=== PATIENT | female | born 1945 ===

== ENCOUNTER 2023-05-31 15:21 | Inpatient (IN) | payer MEDICARE, SELFPAY ==
--- NOTE | ~2023-05-31 | XR_ITS ---
EXAMINATION: XR ANKLE, RIGHT CLINICAL INFORMATION: Ankle swelling COMPARISON: None available. TECHNIQUE: AP, lateral, and mortise views of the right ankle. FINDINGS: There is bilateral soft tissue swelling seen. No effusions are present. The ankle mortise appears stable. No fractures. XR/XR ankle RT 2V IMPRESSION: Soft tissue swelling without fracture.
[2023-05-31 16:30] VITALS: BP 171/74; PULSE 72; TEMP 36.2; O2SAT 95
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
[2023-05-31 20:00] VITALS: BP 195/80; PULSE 73; RESP 18; TEMP 35.9; O2SAT 97
--- NOTE | 2023-06-01 08:26 | P.HPPS_ITS ---
HPI Date of Service: 06/01/23 Chief Complaint: Schizoaffective disorder Sources of Information: patient interviewed, chart reviewed and crisis/core team assessment reviewed HPI Subjective Notes: Section 12B Narrative: The patient is a 77-year-old female, residing at her home home, with with a long history of psychiatric illness, [facility] case managed through [facility] The patient has a community court order for treatment over objection and she has VNA services. According to the crisis assessment, the patient has refused to engage or allow the VNA in her home and dispense her medications. She presented herself with irritability agitation and aggression. The team called crisis as she was rushed to the emergency room where she refused to collaborate on the assessment. The patient was transferring to this facility for psychiatric stabilization. On interview, the patient reported that she is doing fine that she signed a 3 day notice, and she stated that she wound on court and she does not have to take medications. I explained her that we received a fax with her treatment over objection and she needs to take medication. She was disorganized, laughing inappropriately and tangential with severe thought process disorganization. Even though, she adamantly denies suicidal or homicidal ideation. The staff has noticed that she needs prompts for her activities of daily life. Risk, benefits, side-effects and alternatives were discussed with the patient but she stated that everything is okay. I explained her that we have the court order and she refused her Abilify we will need to give him Geonaresh IM. Past Psychiatric History: She has a long history of psychiatric illness she was diagnosed with psychosis and she has ancillary services by [facility]. She has VNA and other services that she had been refusing. She has several prior admissions into the hospital. Medical Evaluation Reviewed: Yes Diagnostics Vital Signs (24Hr): Vital Signs - 24 hr 05/31/23 16:30 05/31/23 20:00 Temperature 97.1 F 96.6 F L Pulse Rate 72 73 Respiratory Rate 18 Blood Pressure 171/74 H 195/80 H Pulse Oximetry 95 97 Oxygen Delivery Method Room Air Room Air Labs 06/01/23 08:07 Meds/Allergies Meds Home Medications Medication Instructions Recorded Confirmed Type aripiprazole 30 mg tablet 30 mg PO DAILY 05/31/23 05/31/23 History divalproex 500 mg tablet,extended 500 mg PO QPM 05/31/23 05/31/23 History release 24 hr propranolol 10 mg tablet 10 mg PO BID 05/31/23 05/31/23 History ziprasidone HCl 60 mg capsule 60 mg PO DAILY 05/31/23 05/31/23 History Allergies Allergies Allergy/AdvReac Type Severity Reaction Status Date / Time aspirin Allergy Hives Verified 05/31/23 16:21 Mental Status Exam Mental Status Exam Patient Appearance: Appropriate Patient Orientation: Person and Situation Level of Consciousness: Awake and Disoriented Patient Behavior: Guarded and Belligerent Mood Description: Withdrawn Affect Description: Constricted Patient Cognition Impaired: Yes Ability to Follow Directions: Good Speech Pattern: Clear, Difficulty Finding Words and Mumbled Hallucinations: None Delusions: Paranoid Ideation and Ideas of Reference Thought Process: Incoherent, Illogical and Distracted Thought Content: positive for Loose Associations, positive for Thought Blocking, positive for Incoherent and positive for Tangential Judgement: Poor Assessment & Plan Assessment & Plan (1) Schizoaffective disorder: Status: Acute Code(s): F25.9 - Schizoaffective disorder, unspecified Plan The patient is an elderly female, with a long history of psychosis, followed by [facility] through VNA and intensive case management, referred for noncompliance of treatment with exacerbation of psychotic symptoms elicited by disorganized behavior irritability and agitation. Plan 1. Gather collateral information. 2. As per court order we will continue Abilify 30 mg p.o. q.a.m. with backup she on IM if the patient refuses. 3. Continue medical workout. 4. Reassessment with results. Patient educated on: diagnosis and therapeutic strategies Informed Consent: further education needed Reason for continued inpatient stay Substantial Risk for: inability to function, rapid decompensation and med/psych decompensation Statement Statement: I have reviewed the history and physical and performed a pertinent examination on my patient. No changes have occurred unless specified. If the History and Physical was not performed prior to admission, the Hospitalist's service will be consulted for completing the admission physic al. Time Spent With Patient Time: Total time managing care of this patient today __45__ minutes.
[2023-06-01 08:28] LABS: Estimated Average Glucose 100 mg/dL; Hemoglobin A1c % 5.1 %
[2023-06-01 09:00] VITALS: RESP 16
--- NOTE | 2023-06-01 09:25 | HO.PSYADMNOT ---
HPI Chief Complaint: Schizoaffective disorder Diagnostics Vital Signs (24Hr): Vital Signs - 24 hr 05/31/23 16:30 05/31/23 20:00 Temperature 97.1 F 96.6 F L Pulse Rate 72 73 Respiratory Rate 18 Blood Pressure 171/74 H 195/80 H Pulse Oximetry 95 97 Oxygen Delivery Method Room Air Room Air Labs 06/01/23 08:07 Labs: Laboratory Results - last 48 hr 06/01/23 08:07 Estimat Average Glucose 100 Hemoglobin A1c % 5.1 Meds/Allergies Meds Home Medications Medication Instructions Recorded Confirmed Type aripiprazole 30 mg tablet 30 mg PO DAILY 05/31/23 05/31/23 History divalproex 500 mg tablet,extended 500 mg PO QPM 05/31/23 05/31/23 History release 24 hr propranolol 10 mg tablet 10 mg PO BID 05/31/23 05/31/23 History ziprasidone HCl 60 mg capsule 60 mg PO DAILY 05/31/23 05/31/23 History Allergies Allergies Allergy/AdvReac Type Severity Reaction Status Date / Time aspirin Allergy Hives Verified 05/31/23 16:21 Assessment & Plan Statement Statement: I have reviewed the history and physical and performed a pertinent examination on my patient. No changes have occurred unless specified. If the History and Physical was not performed prior to admission, the Hospitalist's service will be consulted for completing the admission physical. Time Spent With Patient Time: Total time managing care of this patient today ____ minutes.
[2023-06-01 09:31] LABS: Alanine Aminotransferase 20 U/L (0-31); Albumin Level 3.1 g/dL (3.5-5.0); Alkaline Phosphatase 72 U/L (39-117); Anion Gap 10 (12-20); Aspartate Amino Transferase 20 U/L (5-31); Bilirubin Total 1.4 mg/dL (0.0-1.0); Blood Urea Nitrogen 6 mg/dL (9-16); Calcium 8.6 mg/dL (8.4-10.2); Carbon Dioxide 24 mmol/L (22-29); Chloride 111 mmol/L (96-108); Cholesterol 124 mg/dL; Estimated Glomerular Filt Rate > 60; Glucose Fasting 103 mg/dL (60-99); HDL Cholesterol 37 mg/dL; LDL Cholesterol Calculated 67 mg/dl; Potassium 3.7 mmol/L (3.3-5.1); Sodium 141 mmol/L (135-145); Total Protein 5.5 g/dL (6.5-8.0); Triglycerides 101 mg/dL
[2023-06-01] MEDS: ARIPiprazole 30 MG TABLET PO (09:34)
[2023-06-01 09:46] LABS: Thyroid Stimulating Hormone 1.22 uIU/mL (0.32-4.0)
[2023-06-01 09:54] LABS: Vitamin B12 295 pg/mL (200-900)
[2023-06-01 17:08] VITALS: BP 188/86; PULSE 76; O2SAT 98
[2023-06-01 18:00] VITALS: BP 175/76; PULSE 106; TEMP 36.3; O2SAT 97
[2023-06-02] MEDS: ARIPiprazole 30 MG TABLET PO (13:07)
--- NOTE | 2023-06-02 15:56 | HO.PSYCHPN ---
Subjective Subjective Date of Service: 06/02/23 Reason For Visit: Schizoaffective disorder Interim History: reports she is sleeping, eating, getting along OK. militantly committed to the ideal that today is June 05. any statements to the contrary elicit a subtle rage. per staff, refusing BP meds. hypertensive. slept well, eating well. Mental Status Exam Mental Status Exam Patient Appearance: Appropriate Patient Orientation: Person and Situation Level of Consciousness: Awake and Disoriented Patient Behavior: Guarded and Belligerent Mood Description: Withdrawn Affect Description: Constricted Patient Cognition Impaired: Yes Ability to Follow Directions: Good Speech Pattern: Clear, Difficulty Finding Words and Mumbled Hallucinations: None Delusions: Paranoid Ideation and Ideas of Reference Thought Process: Incoherent, Illogical and Distracted Thought Content: positive for Loose Associations, positive for Thought Blocking, positive for Incoherent and positive for Tangential Judgement: Poor Diagnostics Vital Signs (24Hr): Vital Signs - 24 hr 06/01/23 17:08 06/01/23 18:00 Temperature 97.3 F Pulse Rate 76 106 H Blood Pressure 188/86 H 175/76 H Pulse Oximetry 98 97 Oxygen Delivery Method Room Air Room Air Labs 06/01/23 08:07 Labs: Laboratory Results - last 48 hr 06/01/23 06/01/23 06/01/23 08:07 08:07 08:07 Sodium 141 Potassium 3.7 Chloride 111 H Carbon Dioxide 24 Anion Gap 10 L BUN 6 L Creatinine 0.67 Estim Creat Clear Calc TNP Estimated GFR > 60 Fasting Glucose 103 H Estimat Average Glucose 100 Hemoglobin A1c % 5.1 Calcium 8.6 Total Bilirubin 1.4 H AST 20 ALT 20 Alkaline Phosphatase 72 Total Protein 5.5 L Albumin 3.1 L Triglycerides 101 Cholesterol 124 LDL Cholesterol, Calc 67 HDL Cholesterol 37 Vitamin B12 295 TSH 1.22 Medications Medications Current Medications Acetaminophen (Acetaminophen 325 Mg Tablet) 650 mg PO Q6H PRN PRN Reason: Headache/Pain Mild Scale (1-3) Al Hydroxide/Mg Hydroxide (Magnesium Hydrox/Alum Hydrox 30 Ml Oral.Susp) 30 ml PO Q6H PRN PRN Reason: Heartburn/Nausea Amlodipine Besylate (Amlodipine Besylate 2.5 Mg Tablet) 2.5 mg PO DAILY [facility]QU[facility]; Protocol Last Admin: 06/02/23 10:03 Dose: Not Given Aripiprazole (Aripiprazole 30 Mg Tablet) 30 mg PO DAILY [facility] Last Admin: 06/02/23 13:07 Dose: 30 mg Divalproex Sodium (Divalproex Sodium Er 500 Mg Tab.Er.24h) 500 mg PO BEDTIME [facility] Last Admin: 06/01/23 21:11 Dose: Not Given Hydroxyzine HCl (Hydroxyzine Hcl 25 Mg Tablet) 25 mg PO Q6H PRN PRN Reason: Anxiety Magnesium Hydroxide (Milk Of Magnesia 30 Ml Oral.Susp) 30 ml PO DAILY PRN PRN Reason: Constipation Propranolol HCl (Propranolol Hcl 10 Mg Tablet) 10 mg PO BID [facility]; Protocol Last Admin: 06/02/23 10:03 Dose: Not Given Trazodone HCl (Trazodone Hcl 50 Mg Tablet) 50 mg PO BEDTIME PRN PRN Reason: Insomnia Ziprasidone (Ziprasidone Mesylate 20 Mg Vial) 20 mg IM DAILY PRN PRN Reason: if pt refuses po abilify Osman Allergies Allergies Allergy/AdvReac Type Severity Reaction Status Date / Time aspirin Allergy Hives Verified 05/31/23 16:21 Assessment & Plan Assessment & Plan (1) Schizoaffective disorder: Status: Acute Code(s): F25.9 - Schizoaffective disorder, unspecified Plan The patient is an elderly female, with a long history of psychosis, followed by [facility] through VNA and intensive case management, referred for noncompliance of treatment with exacerbation of psychotic symptoms elicited by disorganized behavior irritability and agitation. Plan 1. Gather collateral information. 2. As per court order we will continue Abilify 30 mg p.o. q.a.m. with backup she on IM if the patient refuses. 3. Continue medical workout. 4. Reassessment with results. 06/02: delusional, irritable. continue current mgmt. Reason for continued inpatient stay Substantial Risk for: inability to function and rapid decompensation Time Spent With Patient Time: Total time managing care of this patient today ____ minutes.
[2023-06-02 20:40] VITALS: BP 164/72; PULSE 87; RESP 17; TEMP 36.5; O2SAT 97
[2023-06-03] MEDS: ARIPiprazole 30 MG TABLET PO (08:25)
--- NOTE | 2023-06-03 10:51 | P.PNPSI_ITS ---
Subjective Subjective Date of Service: 06/03/23 Reason For Visit: Schizoaffective disorder Interim History: hostile, waves MD away, you can't help me. per staff, took abilify. refused VS and anti-HTN meds. systolic in the 170s last evening. slept well. Mental Status Exam Mental Status Exam Patient Appearance: Appropriate Patient Orientation: Person and Situation Level of Consciousness: Awake and Disoriented Patient Behavior: Guarded and Belligerent Mood Description: Withdrawn Affect Description: Constricted Patient Cognition Impaired: Yes Ability to Follow Directions: Good Speech Pattern: Clear Hallucinations: None Thought Process: Illogical and Distracted Thought Content: positive for Loose Associations, positive for Thought Blocking, positive for Incoherent and positive for Tangential Judgement: Poor Diagnostics Vital Signs (24Hr): Vital Signs - 24 hr 06/02/23 20:40 Temperature 97.7 F Pulse Rate 87 Respiratory Rate 17 Blood Pressure 164/72 H Pulse Oximetry 97 Oxygen Delivery Method Room Air Labs 06/01/23 08:07 Medications Medications Current Medications Acetaminophen (Acetaminophen 325 Mg Tablet) 650 mg PO Q6H PRN PRN Reason: Headache/Pain Mild Scale (1-3) Al Hydroxide/Mg Hydroxide (Magnesium Hydrox/Alum Hydrox 30 Ml Oral.Susp) 30 ml PO Q6H PRN PRN Reason: Heartburn/Nausea Amlodipine Besylate (Amlodipine Besylate 2.5 Mg Tablet) 2.5 mg PO DAILY [facility]; Protocol Last Admin: 06/03/23 08:27 Dose: Not Given Aripiprazole (Aripiprazole 30 Mg Tablet) 30 mg PO DAILY [facility] Last Admin: 06/03/23 08:25 Dose: 30 mg Divalproex Sodium (Divalproex Sodium Er 500 Mg Tab.Er.24h) 500 mg PO BEDTIME [facility] Last Admin: 06/02/23 20:47 Dose: Not Given Hydroxyzine HCl (Hydroxyzine Hcl 25 Mg Tablet) 25 mg PO Q6H PRN PRN Reason: Anxiety Magnesium Hydroxide (Milk Of Magnesia 30 Ml Oral.Susp) 30 ml PO DAILY PRN PRN Reason: Constipation Propranolol HCl (Propranolol Hcl 10 Mg Tablet) 10 mg PO BID [facility]; Protocol Last Admin: 06/03/23 08:27 Dose: Not Given Trazodone HCl (Trazodone Hcl 50 Mg Tablet) 50 mg PO BEDTIME PRN PRN Reason: Insomnia Ziprasidone (Ziprasidone Mesylate 20 Mg Vial) 20 mg IM DAILY PRN PRN Reason: if pt refuses po abilify Osman Allergies Allergies Allergy/AdvReac Type Severity Reaction Status Date / Time aspirin Allergy Hives Verified 05/31/23 16:21 Assessment & Plan Assessment & Plan (1) Schizoaffective disorder: Status: Acute Code(s): F25.9 - Schizoaffective disorder, unspecified Plan The patient is an elderly female, with a long history of psychosis, followed by [facility] through VNA and intensive case management, referred for noncompliance of treatment with exacerbation of psychotic symptoms elicited by disorganized behavior irritability and agitation. Plan 1. Gather collateral information. 2. As per court order we will continue Abilify 30 mg p.o. q.a.m. with backup she on IM if the patient refuses. 3. Continue medical workout. 4. Reassessment with results. 06/02: delusional, irritable. continue current mgmt. 06/02: irritable. continue current mgmt. Reason for continued inpatient stay Substantial Risk for: inability to function and rapid decompensation Time Spent With Patient Time: Total time managing care of this patient today ____ minutes.
[2023-06-03 20:57] VITALS: BP 169/71; PULSE 73
[2023-06-04 08:30] VITALS: BP 141/84; PULSE 104; RESP 18; TEMP 36.7; O2SAT 96
[2023-06-04] MEDS: ARIPiprazole 30 MG TABLET PO (09:09)
--- NOTE | 2023-06-04 11:24 | P.PNPSI_ITS ---
Subjective Subjective Date of Service: 06/04/23 Reason For Visit: Schizoaffective disorder Subjective Notes: Section 12B Interim History: The nursing staff reported the patient had been wandering the unit. She needs constant redirection and she had been taking only the medications listed on her [place] years order. She has declined blood pressure medications. The long term care social worker reported that she interview her and she stated that she does not have a mental illness and she had [address] but it is not true she has a current court order. On interview the patient stated that she is signed a 3 day notice but she had never sinus CV so years finding for Section 7 and 8. Also we are going to try to gather collateral information by her team in the community. Mental Status Exam Mental Status Exam Patient Appearance: Appropriate Patient Orientation: Person and Situation Level of Consciousness: Awake Patient Behavior: Guarded and Suspicious Mood Description: Withdrawn Affect Description: Calm Patient Cognition Impaired: Yes Ability to Follow Directions: Fair Speech Pattern: Clear Hallucinations: None Delusions: Paranoid Ideation and Ideas of Reference Thought Process: Distracted, Slowed Thinking and Confusion Thought Content: positive for [place], positive for Poverty of Content, positive for Loose Associations and positive for Thought Blocking Judgement: Poor Diagnostics Vital Signs (24Hr): Vital Signs - 24 hr 06/03/23 20:57 06/04/23 08:30 Temperature 98.0 F Pulse Rate 73 104 H Respiratory Rate 18 Blood Pressure 169/71 H 141/84 H Pulse Oximetry 96 Oxygen Delivery Method Room Air Labs 06/01/23 08:07 Medications Medications Current Medications Acetaminophen (Acetaminophen 325 Mg Tablet) 650 mg PO Q6H PRN PRN Reason: Headache/Pain Mild Scale (1-3) Al Hydroxide/Mg Hydroxide (Magnesium Hydrox/Alum Hydrox 30 Ml Oral.Susp) 30 ml PO Q6H PRN PRN Reason: Heartburn/Nausea Amlodipine Besylate (Amlodipine Besylate 2.5 Mg Tablet) 2.5 mg PO DAILY [facility]; Protocol Last Admin: 06/04/23 09:15 Dose: Not Given Aripiprazole (Aripiprazole 30 Mg Tablet) 30 mg PO DAILY [facility] Last Admin: 06/04/23 09:09 Dose: 30 mg Divalproex Sodium (Divalproex Sodium Er 500 Mg Tab.Er.24h) 500 mg PO BEDTIME [facility] Last Admin: 06/03/23 21:17 Dose: Not Given Hydroxyzine HCl (Hydroxyzine Hcl 25 Mg Tablet) 25 mg PO Q6H PRN PRN Reason: Anxiety Magnesium Hydroxide (Milk Of Magnesia 30 Ml Oral.Susp) 30 ml PO DAILY PRN PRN Reason: Constipation Propranolol HCl (Propranolol Hcl 10 Mg Tablet) 10 mg PO BID [facility]; Protocol Last Admin: 06/04/23 09:16 Dose: Not Given Trazodone HCl (Trazodone Hcl 50 Mg Tablet) 50 mg PO BEDTIME PRN PRN Reason: Insomnia Ziprasidone (Ziprasidone Mesylate 20 Mg Vial) 20 mg IM DAILY PRN PRN Reason: if pt refuses po abilify Osman Allergies Allergies Allergy/AdvReac Type Severity Reaction Status Date / Time aspirin Allergy Hives Verified 05/31/23 16:21 Assessment & Plan Assessment & Plan (1) Schizoaffective disorder: Status: Acute Code(s): F25.9 - Schizoaffective disorder, unspecified Plan The patient is an elderly female, with a long history of psychosis, followed by [facility] through VNA and intensive case management, referred for noncompliance of treatment with exacerbation of psychotic symptoms elicited by disorganized behavior irritability and agitation. Plan 1. Gather collateral information. 2. As per court order we will continue Abilify 30 mg p.o. q.a.m. with backup Geodon IM if the patient refuses. 3. Continue medical workout. 4. Reassessment with results. 5. Filing for Section 7 and 8. Reason for continued inpatient stay Substantial Risk for: inability to function, rapid decompensation and med/psych decompensation Time Spent With Patient Time: Total time managing care of this patient today __20__ minutes.
[2023-06-04 18:00] VITALS: BP 138/89; PULSE 81; RESP 18; TEMP 36.3; O2SAT 97
[2023-06-05] MEDS: ARIPiprazole 30 MG TABLET PO (08:51)
[2023-06-05 09:00] VITALS: BP 167/71; PULSE 90; RESP 18
--- NOTE | 2023-06-05 13:23 | P.PNPSI_ITS ---
Subjective Subjective Date of Service: 06/05/23 Reason For Visit: Schizoaffective disorder Subjective Notes: Section 7 and Section 8 Interim History: The nursing staff reported the patient has poor insight into her condition, she was noncompliant with her medications but later on she took her Abilify since she knows that she has a court ordered to take it. She was wandering in the evening slept all night. The social problems specialist tried to contact the case management manager of the [facility] program, we were trying to reach them out today. On interview the patient remains delusional with poor insight into her condition. Mental Status Exam Mental Status Exam Patient Appearance: Appropriate Patient Orientation: Person and Situation Level of Consciousness: Awake and Appropriate Patient Behavior: Guarded Mood Description: Labile Affect Description: Constricted Patient Cognition Impaired: Yes Ability to Follow Directions: Good Speech Pattern: Clear Hallucinations: None Delusions: Paranoid Ideation and Ideas of Reference Thought Process: Illogical and Distracted Thought Content: positive for [place] and positive for Poverty of Content Judgement: Poor Diagnostics Vital Signs (24Hr): Vital Signs - 24 hr 06/04/23 18:00 06/05/23 09:00 Temperature 97.3 F Pulse Rate 81 90 Respiratory Rate 18 18 Blood Pressure 138/89 167/71 H Pulse Oximetry 97 Oxygen Delivery Method Room Air Labs 06/01/23 08:07 Medications Medications Current Medications Acetaminophen (Acetaminophen 325 Mg Tablet) 650 mg PO Q6H PRN PRN Reason: Headache/Pain Mild Scale (1-3) Al Hydroxide/Mg Hydroxide (Magnesium Hydrox/Alum Hydrox 30 Ml Oral.Susp) 30 ml PO Q6H PRN PRN Reason: Heartburn/Nausea Amlodipine Besylate (Amlodipine Besylate 2.5 Mg Tablet) 2.5 mg PO DAILY [facility]; Protocol Last Admin: 06/05/23 08:56 Dose: Not Given Aripiprazole (Aripiprazole 30 Mg Tablet) 30 mg PO DAILY [facility] Last Admin: 06/05/23 08:51 Dose: 30 mg Divalproex Sodium (Divalproex Sodium Er 500 Mg Tab.Er.24h) 500 mg PO BEDTIME [facility] Last Admin: 06/04/23 22:11 Dose: Not Given Hydroxyzine HCl (Hydroxyzine Hcl 25 Mg Tablet) 25 mg PO Q6H PRN PRN Reason: Anxiety Magnesium Hydroxide (Milk Of Magnesia 30 Ml Oral.Susp) 30 ml PO DAILY PRN PRN Reason: Constipation Propranolol HCl (Propranolol Hcl 10 Mg Tablet) 10 mg PO BID [facility]; Protocol Last Admin: 06/05/23 08:57 Dose: Not Given Trazodone HCl (Trazodone Hcl 50 Mg Tablet) 50 mg PO BEDTIME PRN PRN Reason: Insomnia Ziprasidone (Ziprasidone Mesylate 20 Mg Vial) 20 mg IM DAILY PRN PRN Reason: if pt refuses po abilify [facility] Allergies Allergies Allergy/AdvReac Type Severity Reaction Status Date / Time aspirin Allergy Hives Verified 05/31/23 16:21 Assessment & Plan Assessment & Plan (1) Schizoaffective disorder: Status: Acute Code(s): F25.9 - Schizoaffective disorder, unspecified Plan The patient is an elderly female, with a long history of psychosis, followed by [facility] through VNA and intensive case management, referred for noncompliance of treatment with exacerbation of psychotic symptoms elicited by disorganized behavior irritability and agitation. Plan 1. Gather collateral information. 2. As per court order we will continue Abilify 30 mg p.o. q.a.m. with backup Geodon IM if the patient refuses. 3. Continue medical workout. 4. Reassessment with results. 5. Filing for Section 7 and 8. We will have a court hearing next week. Reason for continued inpatient stay Substantial Risk for: inability to function, rapid decompensation and med/psych decompensation Time Spent With Patient Time: Total time managing care of this patient today __20__ minutes.
[2023-06-05 18:00] VITALS: RESP 16
[2023-06-06 08:15] VITALS: RESP 20
[2023-06-06] MEDS: ARIPiprazole 30 MG TABLET PO (08:21)
[2023-06-06 14:06] VITALS: RESP 20
--- NOTE | 2023-06-06 14:32 | P.PNPSI_ITS ---
Subjective Subjective Date of Service: 06/06/23 Reason For Visit: Schizoaffective disorder Subjective Notes: Section 7 and Section 8 Interim History: The nursing staff reported the patient had refused all his regular medications but she took Abilify since she is aware that there is a court ordered and she can get you on IM as a backup. She had been paranoid, she refused to engage to staff. We filed for Section 7 and 8 and we will have a court hearing next week. The medical social consultant reported that the patient signed a consent to contact her immigration case manager today and we are going to try to gather more collateral information. On interview the patient remains paranoid and disorganized but redirectable. Mental Status Exam Mental Status Exam Patient Appearance: Well Grooomed and Appropriate Patient Orientation: Person and Situation Level of Consciousness: Awake and Appropriate Patient Behavior: Guarded and Passive Mood Description: Calm and Withdrawn Affect Description: Labile Patient Cognition Impaired: Yes Ability to Follow Directions: Fair Speech Pattern: Clear Hallucinations: None Delusions: Paranoid Ideation, Grandiose and Ideas of Reference Thought Process: Distracted Thought Content: positive for [place] and positive for Linear Judgement: Poor Diagnostics Vital Signs (24Hr): Vital Signs - 24 hr 06/05/23 18:00 06/06/23 08:15 06/06/23 14:06 Respiratory Rate 16 20 20 Labs 06/01/23 08:07 Medications Medications Current Medications Acetaminophen (Acetaminophen 325 Mg Tablet) 650 mg PO Q6H PRN PRN Reason: Headache/Pain Mild Scale (1-3) Al Hydroxide/Mg Hydroxide (Magnesium Hydrox/Alum Hydrox 30 Ml Oral.Susp) 30 ml PO Q6H PRN PRN Reason: Heartburn/Nausea Amlodipine Besylate (Amlodipine Besylate 2.5 Mg Tablet) 2.5 mg PO DAILY [facility]; Protocol Last Admin: 06/06/23 08:19 Dose: Not Given Aripiprazole (Aripiprazole 30 Mg Tablet) 30 mg PO DAILY [facility] Last Admin: 06/06/23 08:21 Dose: 30 mg Divalproex Sodium (Divalproex Sodium Er 500 Mg Tab.Er.24h) 500 mg PO BEDTIME [facility] Last Admin: 06/05/23 20:35 Dose: Not Given Hydroxyzine HCl (Hydroxyzine Hcl 25 Mg Tablet) 25 mg PO Q6H PRN PRN Reason: Anxiety Magnesium Hydroxide (Milk Of Magnesia 30 Ml Oral.Susp) 30 ml PO DAILY PRN PRN Reason: Constipation Propranolol HCl (Propranolol Hcl 10 Mg Tablet) 10 mg PO BID [facility]; Protocol Last Admin: 06/06/23 08:19 Dose: Not Given Trazodone HCl (Trazodone Hcl 50 Mg Tablet) 50 mg PO BEDTIME PRN PRN Reason: Insomnia Ziprasidone (Ziprasidone Mesylate 20 Mg Vial) 20 mg IM DAILY PRN PRN Reason: if pt refuses po abilify [facility] Allergies Allergies Allergy/AdvReac Type Severity Reaction Status Date / Time aspirin Allergy Hives Verified 05/31/23 16:21 Assessment & Plan Assessment & Plan (1) Schizoaffective disorder: Status: Acute Code(s): F25.9 - Schizoaffective disorder, unspecified Plan The patient is an elderly female, with a long history of psychosis, followed by [facility] through VNA and intensive case management, referred for noncompliance of treatment with exacerbation of psychotic symptoms elicited by disorganized behavior irritability and agitation. Plan 1. Gather collateral information. 2. As per court order we will continue Abilify 30 mg p.o. q.a.m. with backup Geodon IM if the patient refuses. 3. Continue medical workout. 4. Reassessment with results. 5. Filing for Section 7 and 8. We will have a court hearing next week. Reason for continued inpatient stay Substantial Risk for: inability to function, rapid decompensation and med/psych decompensation Time Spent With Patient Time: Total time managing care of this patient today __20__ minutes.
[2023-06-07 08:30] VITALS: RESP 20
[2023-06-07] MEDS: ARIPiprazole 30 MG TABLET PO (08:36)
--- NOTE | 2023-06-07 12:17 | P.PNPSI_ITS ---
Subjective Subjective Date of Service: 06/07/23 Reason For Visit: Schizoaffective disorder Subjective Notes: Section 7 and Section 8 Interim History: The nursing staff reported that she had poor appetite yesterday she had very little. She has been irritable and sarcastic with staff. She refused vital signs but took her Aricept because she is aware that she will have [facility] IM as a backup. She was seen talking to herself. She slept well last night. The manager social responsibility reported that the case supervisor was contacted apparently she has a chronic history of noncompliance. The occupational therapists reported the patient came to groups but she was disengaged. On interview, the patient remains delusional but easily redirectable. Sarcastic and angry. Mental Status Exam Mental Status Exam Patient Appearance: Appropriate Patient Orientation: Person and Situation Level of Consciousness: Awake and Appropriate Patient Behavior: Guarded and Passive Mood Description: Withdrawn Affect Description: Constricted Patient Cognition Impaired: Yes Ability to Follow Directions: Good Speech Pattern: Clear Hallucinations: None Delusions: Paranoid Ideation and Ideas of Reference Thought Process: Illogical and Distracted Thought Content: positive for [place], positive for Loose Associations and positive for Thought Blocking Judgement: Poor Diagnostics Vital Signs (24Hr): Vital Signs - 24 hr 06/06/23 14:06 06/07/23 08:30 Respiratory Rate 20 20 Labs 06/01/23 08:07 Medications Medications Current Medications Acetaminophen (Acetaminophen 325 Mg Tablet) 650 mg PO Q6H PRN PRN Reason: Headache/Pain Mild Scale (1-3) Al Hydroxide/Mg Hydroxide (Magnesium Hydrox/Alum Hydrox 30 Ml Oral.Susp) 30 ml PO Q6H PRN PRN Reason: Heartburn/Nausea Amlodipine Besylate (Amlodipine Besylate 2.5 Mg Tablet) 2.5 mg PO DAILY [facility]; Protocol Last Admin: 06/07/23 08:37 Dose: Not Given Aripiprazole (Aripiprazole 30 Mg Tablet) 30 mg PO DAILY [facility] Last Admin: 06/07/23 08:36 Dose: 30 mg Divalproex Sodium (Divalproex Sodium Er 500 Mg Tab.Er.24h) 500 mg PO BEDTIME [facility] Last Admin: 06/06/23 21:46 Dose: Not Given Hydroxyzine HCl (Hydroxyzine Hcl 25 Mg Tablet) 25 mg PO Q6H PRN PRN Reason: Anxiety Magnesium Hydroxide (Milk Of Magnesia 30 Ml Oral.Susp) 30 ml PO DAILY PRN PRN Reason: Constipation Propranolol HCl (Propranolol Hcl 10 Mg Tablet) 10 mg PO BID [facility]; Protocol Last Admin: 06/07/23 08:37 Dose: Not Given Trazodone HCl (Trazodone Hcl 50 Mg Tablet) 50 mg PO BEDTIME PRN PRN Reason: Insomnia Ziprasidone (Ziprasidone Mesylate 20 Mg Vial) 20 mg IM DAILY PRN PRN Reason: if pt refuses po abilify [facility] Allergies Allergies Allergy/AdvReac Type Severity Reaction Status Date / Time aspirin Allergy Hives Verified 05/31/23 16:21 Assessment & Plan Assessment & Plan (1) Schizoaffective disorder: Status: Acute Code(s): F25.9 - Schizoaffective disorder, unspecified Plan The patient is an elderly female, with a long history of psychosis, followed by [facility] through VNA and intensive case management, referred for noncompliance of treatment with exacerbation of psychotic symptoms elicited by disorganized behavior irritability and agitation. Plan 1. Gather collateral information. 2. As per court order we will continue Abilify 30 mg p.o. q.a.m. with backup Geodon IM if the patient refuses. 3. Continue medical workout. 4. Reassessment with results. 5. Filing for Section 7 and 8. We will have a court hearing next week. Reason for continued inpatient stay Substantial Risk for: inability to function, rapid decompensation and med/psych decompensation Time Spent With Patient Time: Total time managing care of this patient today __20__ minutes.
[2023-06-07 14:13] VITALS: RESP 20
[2023-06-08 08:17] VITALS: RESP 18
[2023-06-08] MEDS: ARIPiprazole 30 MG TABLET PO (08:34)
--- NOTE | 2023-06-08 09:40 | PC.NURSE ---
Elo declined to take 0900 Norvasc, Inderal, and declined to have her vital signs taken; MD Schaffer notified. It was passed along in personal injury specialist report that she has had poor po intake. MD Schaffer notified of poor intake and requested dietary/nutrition consult.
--- NOTE | 2023-06-08 12:44 | HO.PSYCHPN ---
Subjective Subjective Date of Service: 06/08/23 Reason For Visit: Schizoaffective disorder Subjective Notes: Section 7 and Section 8 Interim History: The nursing staff reported the patient had been sarcastic, only taking Abilify since she knows that she has a court order. She has been self dialogue in pacing, she has refused to eat. Even though her vital signs are stable. The social insurance adviser reported that at baseline according to the staff of [facility], she is pleasant and compliant this is not how she usually behaviors. On interview the patient reports that she wants to go home, she is aware that we are finding for Section 7 and 8 and she will have a court hearing. Mental Status Exam Mental Status Exam Patient Appearance: Appropriate Patient Orientation: Person and Situation Level of Consciousness: Awake and Appropriate Patient Behavior: Guarded and Passive Mood Description: Withdrawn Affect Description: Constricted Patient Cognition Impaired: Yes Ability to Follow Directions: Good Speech Pattern: Clear Hallucinations: None Delusions: Not Present Thought Process: Linear Thought Content: positive for [place], positive for Poverty of Content and positive for Loose Associations Judgement: Poor Diagnostics Vital Signs (24Hr): Vital Signs - 24 hr 06/07/23 14:13 06/08/23 08:17 Respiratory Rate 20 18 Labs 06/01/23 08:07 Medications Medications Current Medications Acetaminophen (Acetaminophen 325 Mg Tablet) 650 mg PO Q6H PRN PRN Reason: Headache/Pain Mild Scale (1-3) Al Hydroxide/Mg Hydroxide (Magnesium Hydrox/Alum Hydrox 30 Ml Oral.Susp) 30 ml PO Q6H PRN PRN Reason: Heartburn/Nausea Amlodipine Besylate (Amlodipine Besylate 2.5 Mg Tablet) 2.5 mg PO DAILY [facility]; Protocol Last Admin: 06/08/23 08:35 Dose: Not Given Aripiprazole (Aripiprazole 30 Mg Tablet) 30 mg PO DAILY [facility] Last Admin: 06/08/23 08:34 Dose: 30 mg Divalproex Sodium (Divalproex Sodium Er 500 Mg Tab.Er.24h) 500 mg PO BEDTIME [facility] Last Admin: 06/07/23 22:42 Dose: Not Given Hydroxyzine HCl (Hydroxyzine Hcl 25 Mg Tablet) 25 mg PO Q6H PRN PRN Reason: Anxiety Magnesium Hydroxide (Milk Of Magnesia 30 Ml Oral.Susp) 30 ml PO DAILY PRN PRN Reason: Constipation Propranolol HCl (Propranolol Hcl 10 Mg Tablet) 10 mg PO BID [facility]; Protocol Last Admin: 06/08/23 08:35 Dose: Not Given Trazodone HCl (Trazodone Hcl 50 Mg Tablet) 50 mg PO BEDTIME PRN PRN Reason: Insomnia Ziprasidone (Ziprasidone Mesylate 20 Mg Vial) 20 mg IM DAILY PRN PRN Reason: if pt refuses po abilify [facility] Allergies Allergies Allergy/AdvReac Type Severity Reaction Status Date / Time aspirin Allergy Hives Verified 05/31/23 16:21 Assessment & Plan Assessment & Plan (1) Schizoaffective disorder: Status: Acute Code(s): F25.9 - Schizoaffective disorder, unspecified Plan The patient is an elderly female, with a long history of psychosis, followed by [facility] through VNA and intensive case management, referred for noncompliance of treatment with exacerbation of psychotic symptoms elicited by disorganized behavior irritability and agitation. Plan 1. Gather collateral information. 2. As per court order we will continue Abilify 30 mg p.o. q.a.m. with backup Geodon IM if the patient refuses. 3. Continue medical workout. 4. Reassessment with results. 5. Filing for Section 7 and 8. We will have a court hearing next week. Reason for continued inpatient stay Substantial Risk for: inability to function, rapid decompensation and med/psych decompensation Time Spent With Patient Time: Total time managing care of this patient today __20__ minutes.
--- NOTE | 2023-06-08 13:55 | MHC.CLN ---
NUTRITION PATIENT WITH POOR INTAKE SOME MEALS. ADDING ENSURE BID TO PROVIDE ADDITIONAL 700 KCALS, 40 G PROTEIN.
[2023-06-08 18:00] VITALS: BP 172/78; PULSE 89; RESP 18; TEMP 36.3; O2SAT 98
[2023-06-08] MEDS: Propranolol HCL 10 MG TABLET PO (20:40)
[2023-06-09] MEDS: ARIPiprazole 30 MG TABLET PO (08:56)
[2023-06-09 10:20] VITALS: RESP 18
--- NOTE | 2023-06-09 10:49 | HO.PSYCHPN ---
Subjective Subjective Date of Service: 06/09/23 Reason For Visit: Schizoaffective disorder Interim History: Patient is intermittently adherent to medications. She is irritable and seen pacing the halls. When approached for check in she says I am Deloris, leave me alone in an irritable tone. She refuses her Norvasc and Inderal as well as Abilify intermittently. She told the nurses she is fasting. She refuses VS. Seen self dialoguing. She is aware that primary team are filing for Section 7 and 8 and she will have a court hearing. Review of Systems Review of Systems Patient has no acute medical complaints at this time Yes all other systems are reviewed and are negative Mental Status Exam Mental Status Exam Patient Appearance: Appropriate Patient Orientation: Person and Situation Level of Consciousness: Awake and Appropriate Patient Behavior: Guarded and Passive Mood Description: Withdrawn Affect Description: Constricted Patient Cognition Impaired: Yes Ability to Follow Directions: Good Speech Pattern: Clear Diagnostics Vital Signs (24Hr): Vital Signs - 24 hr 06/08/23 18:00 06/09/23 10:20 Temperature 97.3 F Pulse Rate 89 Respiratory Rate 18 18 Blood Pressure 172/78 H Pulse Oximetry 98 Oxygen Delivery Method Room Air Labs 06/01/23 08:07 Medications Medications Current Medications Acetaminophen (Acetaminophen 325 Mg Tablet) 650 mg PO Q6H PRN PRN Reason: Headache/Pain Mild Scale (1-3) Al Hydroxide/Mg Hydroxide (Magnesium Hydrox/Alum Hydrox 30 Ml Oral.Susp) 30 ml PO Q6H PRN PRN Reason: Heartburn/Nausea Amlodipine Besylate (Amlodipine Besylate 2.5 Mg Tablet) 2.5 mg PO DAILY [facility]; Protocol Last Admin: 06/09/23 08:58 Dose: Not Given Aripiprazole (Aripiprazole 30 Mg Tablet) 30 mg PO DAILY [facility] Last Admin: 06/09/23 08:56 Dose: 30 mg Divalproex Sodium (Divalproex Sodium Er 500 Mg Tab.Er.24h) 500 mg PO BEDTIME [facility] Last Admin: 06/08/23 20:41 Dose: Not Given Hydroxyzine HCl (Hydroxyzine Hcl 25 Mg Tablet) 25 mg PO Q6H PRN PRN Reason: Anxiety Magnesium Hydroxide (Milk Of Magnesia 30 Ml Oral.Susp) 30 ml PO DAILY PRN PRN Reason: Constipation Propranolol HCl (Propranolol Hcl 10 Mg Tablet) 10 mg PO BID [facility]; Protocol Last Admin: 06/09/23 08:58 Dose: Not Given Trazodone HCl (Trazodone Hcl 50 Mg Tablet) 50 mg PO BEDTIME PRN PRN Reason: Insomnia Ziprasidone (Ziprasidone Mesylate 20 Mg Vial) 20 mg IM DAILY PRN PRN Reason: if pt refuses po abilify [facility] Allergies Allergies Allergy/AdvReac Type Severity Reaction Status Date / Time aspirin Allergy Hives Verified 05/31/23 16:21 Assessment & Plan Assessment & Plan (1) Schizoaffective disorder: Status: Acute Code(s): F25.9 - Schizoaffective disorder, unspecified Plan The patient is an elderly female, with a long history of psychosis, followed by [facility] through VNA and intensive case management, referred for noncompliance of treatment with exacerbation of psychotic symptoms elicited by disorganized behavior irritability and agitation. Plan 1. Gather collateral information. 2. As per court order we will continue Abilify 30 mg p.o. q.a.m. with backup Geodon IM if the patient refuses. 3. Continue medical workout. 4. Reassessment with results. 5. Filing for Section 7 and 8. We will have a court hearing next week. 06/09: Encourage adherence. Continue current treatment plan. Reason for continued inpatient stay Substantial Risk for: inability to function and rapid decompensation Time Spent With Patient Time: Total time managing care of this patient today ____ minutes.
--- NOTE | 2023-06-09 13:21 | PC.NURSE ---
Dr. Whiting notified that Elo declined vital signs, Inderal, and Norvasc.
[2023-06-09 18:00] VITALS: BP 155/75; PULSE 74; TEMP 36.4; O2SAT 98
[2023-06-09] MEDS: Propranolol HCL 10 MG TABLET PO (21:05)
[2023-06-10 08:22] VITALS: BP 121/56; PULSE 80; RESP 18; TEMP 36.2; O2SAT 97
[2023-06-10] MEDS: ARIPiprazole 30 MG TABLET PO (08:24)
--- NOTE | 2023-06-10 14:00 | HO.PSYCHPN ---
Subjective Subjective Date of Service: 06/10/23 Reason For Visit: Schizoaffective disorder Interim History: Patient is intermittently adherent to medications and vital signs. She is seen in the hallway. She is paranoid and doesn't believe this documentation writer is a psychiatrist.She says you can take this hospital and shove it up anyone's a$$ . She is irritable and seen pacing the halls. She refuses her Norvasc and Inderal as well as Abilify intermittently. Seen self dialoguing. She is aware that primary team are filing for Section 7 and 8 and she will have a court hearing. Review of Systems Review of Systems Patient has no acute medical complaints at this time Yes all other systems are reviewed and are negative Mental Status Exam Mental Status Exam Patient Appearance: Appropriate Patient Orientation: Person and Situation Level of Consciousness: Awake and Appropriate Patient Behavior: Guarded and Passive Mood Description: Withdrawn Affect Description: Constricted Patient Cognition Impaired: Yes Ability to Follow Directions: Good Speech Pattern: Clear Diagnostics Vital Signs (24Hr): Vital Signs - 24 hr 06/09/23 18:00 06/10/23 08:22 Temperature 97.6 F 97.1 F Pulse Rate 74 80 Respiratory Rate 18 Blood Pressure 155/75 H 121/56 L Pulse Oximetry 98 97 Oxygen Delivery Method Room Air Room Air Labs 06/01/23 08:07 Medications Medications Current Medications Acetaminophen (Acetaminophen 325 Mg Tablet) 650 mg PO Q6H PRN PRN Reason: Headache/Pain Mild Scale (1-3) Al Hydroxide/Mg Hydroxide (Magnesium Hydrox/Alum Hydrox 30 Ml Oral.Susp) 30 ml PO Q6H PRN PRN Reason: Heartburn/Nausea Amlodipine Besylate (Amlodipine Besylate 2.5 Mg Tablet) 2.5 mg PO DAILY [facility]; Protocol Last Admin: 06/10/23 08:26 Dose: Not Given Aripiprazole (Aripiprazole 30 Mg Tablet) 30 mg PO DAILY [facility] Last Admin: 06/10/23 08:24 Dose: 30 mg Divalproex Sodium (Divalproex Sodium Sprinkles 125 Mg ) 500 mg PO BEDTIME [facility] Last Admin: 06/09/23 21:27 Dose: Not Given Hydroxyzine HCl (Hydroxyzine Hcl 25 Mg Tablet) 25 mg PO Q6H PRN PRN Reason: Anxiety Magnesium Hydroxide (Milk Of Magnesia 30 Ml Oral.Susp) 30 ml PO DAILY PRN PRN Reason: Constipation Propranolol HCl (Propranolol Hcl 10 Mg Tablet) 10 mg PO BID [facility]; Protocol Last Admin: 06/10/23 08:26 Dose: Not Given Trazodone HCl (Trazodone Hcl 50 Mg Tablet) 50 mg PO BEDTIME PRN PRN Reason: Insomnia Ziprasidone (Ziprasidone Mesylate 20 Mg Vial) 20 mg IM DAILY PRN PRN Reason: if pt refuses po abilify [facility] Allergies Allergies Allergy/AdvReac Type Severity Reaction Status Date / Time aspirin Allergy Hives Verified 05/31/23 16:21 Assessment & Plan Assessment & Plan (1) Schizoaffective disorder: Status: Acute Code(s): F25.9 - Schizoaffective disorder, unspecified Plan The patient is an elderly female, with a long history of psychosis, followed by [facility] through VNA and intensive case management, referred for noncompliance of treatment with exacerbation of psychotic symptoms elicited by disorganized behavior irritability and agitation. Plan 1. Gather collateral information. 2. As per court order we will continue Abilify 30 mg p.o. q.a.m. with backup Geodon IM if the patient refuses. 3. Continue medical workout. 4. Reassessment with results. 5. Filing for Section 7 and 8. We will have a court hearing next week. 06/09: Encourage adherence. Continue current treatment plan. 06/10: Continue current plan of care. Reason for continued inpatient stay Substantial Risk for: inability to function and rapid decompensation Time Spent With Patient Time: Total time managing care of this patient today ____ minutes.
[2023-06-10 18:00] VITALS: BP 141/60; PULSE 77; RESP 18; TEMP 36.2; O2SAT 96
[2023-06-10] MEDS: Propranolol HCL 10 MG TABLET PO (20:36)
[2023-06-11 08:20] VITALS: BP 122/58; PULSE 96; RESP 20; TEMP 35.8; O2SAT 96
[2023-06-11] MEDS: ARIPiprazole 30 MG TABLET PO (08:21)
--- NOTE | 2023-06-11 16:25 | HO.PSYCHPN ---
Subjective Subjective Date of Service: 06/11/23 Reason For Visit: Schizoaffective disorder Subjective Notes: Section 7 Interim History: Pt continues to present as paranoid and suspicious. She tells this adjusto writer operator she does not need to meet because she is leaving and soon all of you will be gone! Pt later came to this adjusto writer operator, stating I know what you're doing with your papers. When asked to explain, pt walked away. She was seen talking to someone who is not there. She denies SI/HI. Pt slept through the night. SBP 140's. Review of Systems Review of Systems Patient has no acute medical complaints at this time Yes all other systems are reviewed and are negative Mental Status Exam Mental Status Exam Patient Appearance: Appropriate Patient Orientation: Person and Situation Level of Consciousness: Awake and Appropriate Patient Behavior: Guarded and Passive Mood Description: Withdrawn Affect Description: Constricted Patient Cognition Impaired: Yes Ability to Follow Directions: Good Speech Pattern: Clear Diagnostics Vital Signs (24Hr): Vital Signs - 24 hr 06/10/23 18:00 06/11/23 08:20 Temperature 97.2 F 96.5 F L Pulse Rate 77 96 Respiratory Rate 18 20 Blood Pressure 141/60 H 122/58 L Pulse Oximetry 96 96 Oxygen Delivery Method Room Air Room Air Labs 06/01/23 08:07 Medications Medications Current Medications Acetaminophen (Acetaminophen 325 Mg Tablet) 650 mg PO Q6H PRN PRN Reason: Headache/Pain Mild Scale (1-3) Al Hydroxide/Mg Hydroxide (Magnesium Hydrox/Alum Hydrox 30 Ml Oral.Susp) 30 ml PO Q6H PRN PRN Reason: Heartburn/Nausea Amlodipine Besylate (Amlodipine Besylate 2.5 Mg Tablet) 2.5 mg PO DAILY [facility]; Protocol Last Admin: 06/11/23 08:22 Dose: Not Given Aripiprazole (Aripiprazole 30 Mg Tablet) 30 mg PO DAILY [facility] Last Admin: 06/11/23 08:21 Dose: 30 mg Divalproex Sodium (Divalproex Sodium Sprinkles 125 Mg ) 500 mg PO BEDTIME [facility] Last Admin: 06/10/23 20:36 Dose: Not Given Hydroxyzine HCl (Hydroxyzine Hcl 25 Mg Tablet) 25 mg PO Q6H PRN PRN Reason: Anxiety Magnesium Hydroxide (Milk Of Magnesia 30 Ml Oral.Susp) 30 ml PO DAILY PRN PRN Reason: Constipation Propranolol HCl (Propranolol Hcl 10 Mg Tablet) 10 mg PO BID [facility]; Protocol Last Admin: 06/11/23 08:22 Dose: Not Given Trazodone HCl (Trazodone Hcl 50 Mg Tablet) 50 mg PO BEDTIME PRN PRN Reason: Insomnia Ziprasidone (Ziprasidone Mesylate 20 Mg Vial) 20 mg IM DAILY PRN PRN Reason: if pt refuses po abilify Osman Allergies Allergies Allergy/AdvReac Type Severity Reaction Status Date / Time aspirin Allergy Hives Verified 05/31/23 16:21 Assessment & Plan Assessment & Plan (1) Schizoaffective disorder: Status: Acute Code(s): F25.9 - Schizoaffective disorder, unspecified Plan The patient is an elderly female, with a long history of psychosis, followed by [facility] through VNA and intensive case management, referred for noncompliance of treatment with exacerbation of psychotic symptoms elicited by disorganized behavior irritability and agitation. Plan 1. Gather collateral information. 2. As per court order we will continue Abilify 30 mg p.o. q.a.m. with backup Geodon IM if the patient refuses. 3. Continue medical workout. 4. Reassessment with results. 5. Filing for Section 7 and 8. We will have a court hearing next week. 06/09: Encourage adherence. Continue current treatment plan. 06/10: Continue current plan of care. 06/11 add haldol 5mg po daily per leesa, back up IM Haldol Reason for continued inpatient stay Substantial Risk for: inability to function Time Spent With Patient Time: Total time managing care of this patient today ____ minutes.
[2023-06-11 18:00] VITALS: BP 136/70; PULSE 70; RESP 18; TEMP 36.1; O2SAT 98
[2023-06-12] MEDS: ARIPiprazole 30 MG TABLET PO (08:44)
[2023-06-12] MEDS: HaloperidoL 5 MG TABLET PO (08:46)
--- NOTE | 2023-06-12 16:33 | HO.PSYCHPN ---
Subjective Subjective Date of Service: 06/12/23 Reason For Visit: Schizoaffective disorder Subjective Notes: Section 7 Interim History: Pt less paranoid towards this va underwriter, but still reports she does not trust anyone here and hopes to go home soon. She is taking antipsychotics per leesa, but declines depakote. Pt sleeping through the night. Medication Compliance: Yes Review of Systems Review of Systems Patient has no acute medical complaints at this time Yes all other systems are reviewed and are negative Mental Status Exam Mental Status Exam Patient Appearance: Appropriate Patient Orientation: Person and Situation Level of Consciousness: Awake and Appropriate Patient Behavior: Guarded and Passive Mood Description: Withdrawn Affect Description: Constricted Patient Cognition Impaired: Yes Ability to Follow Directions: Good Speech Pattern: Clear Diagnostics Vital Signs (24Hr): Vital Signs - 24 hr 06/11/23 18:00 Temperature 96.9 F Pulse Rate 70 Respiratory Rate 18 Blood Pressure 136/70 Pulse Oximetry 98 Oxygen Delivery Method Room Air Labs 06/01/23 08:07 Medications Medications Current Medications Acetaminophen (Acetaminophen 325 Mg Tablet) 650 mg PO Q6H PRN PRN Reason: Headache/Pain Mild Scale (1-3) Al Hydroxide/Mg Hydroxide (Magnesium Hydrox/Alum Hydrox 30 Ml Oral.Susp) 30 ml PO Q6H PRN PRN Reason: Heartburn/Nausea Amlodipine Besylate (Amlodipine Besylate 2.5 Mg Tablet) 2.5 mg PO DAILY [facility]; Protocol Last Admin: 06/12/23 08:48 Dose: Not Given Aripiprazole (Aripiprazole 30 Mg Tablet) 30 mg PO DAILY [facility] Last Admin: 06/12/23 08:44 Dose: 30 mg Divalproex Sodium (Divalproex Sodium Sprinkles 125 Mg ) 500 mg PO BEDTIME [facility] Last Admin: 06/11/23 20:31 Dose: Not Given Haloperidol (Haloperidol 5 Mg Tablet) 5 mg PO DAILY [facility] Last Admin: 06/12/23 08:46 Dose: 5 mg Hydroxyzine HCl (Hydroxyzine Hcl 25 Mg Tablet) 25 mg PO Q6H PRN PRN Reason: Anxiety Magnesium Hydroxide (Milk Of Magnesia 30 Ml Oral.Susp) 30 ml PO DAILY PRN PRN Reason: Constipation Propranolol HCl (Propranolol Hcl 10 Mg Tablet) 10 mg PO BID [facility]; Protocol Last Admin: 06/12/23 08:42 Dose: Not Given Trazodone HCl (Trazodone Hcl 50 Mg Tablet) 50 mg PO BEDTIME PRN PRN Reason: Insomnia Ziprasidone (Ziprasidone Mesylate 20 Mg Vial) 20 mg IM DAILY PRN PRN Reason: if pt refuses po abilify Osman Allergies Allergies Allergy/AdvReac Type Severity Reaction Status Date / Time aspirin Allergy Hives Verified 05/31/23 16:21 Assessment & Plan Assessment & Plan (1) Schizoaffective disorder: Status: Acute Code(s): F25.9 - Schizoaffective disorder, unspecified Plan The patient is an elderly female, with a long history of psychosis, followed by [facility] through VNA and intensive case management, referred for noncompliance of treatment with exacerbation of psychotic symptoms elicited by disorganized behavior irritability and agitation. Plan 1. Gather collateral information. 2. As per court order we will continue Abilify 30 mg p.o. q.a.m. with backup Geodon IM if the patient refuses. 3. Continue medical workout. 4. Reassessment with results. 5. Filing for Section 7 and 8. We will have a court hearing next week. 06/09: Encourage adherence. Continue current treatment plan. 06/10: Continue current plan of care. 06/11 add haldol 5mg po daily per leesa, back up IM Haldol 06/12 continue tx. Reason for continued inpatient stay Substantial Risk for: inability to function Time Spent With Patient Time: Total time managing care of this patient today ____ minutes.
[2023-06-12 19:45] VITALS: BP 141/65; PULSE 71; RESP 16; TEMP 36.6; O2SAT 99
[2023-06-13 08:15] VITALS: BP 140/66; PULSE 80; RESP 18; TEMP 36.3; O2SAT 96
[2023-06-13] MEDS: ARIPiprazole 30 MG TABLET PO (09:16)
[2023-06-13] MEDS: HaloperidoL 5 MG TABLET PO (09:16)
[2023-06-13 18:00] VITALS: BP 188/79; PULSE 80; RESP 18; TEMP 36.4; O2SAT 97
[2023-06-13] MEDS: Propranolol HCL 10 MG TABLET PO (20:44)
--- NOTE | 2023-06-13 21:44 | HO.PSYCHPN ---
Subjective Subjective Date of Service: 06/13/23 Reason For Visit: Schizoaffective disorder Subjective Notes: Section 7 Interim History: Pt presents as much calmer. She agrees to talk with this typewriter repairer. She reports she is doing well. She reports I like it here, people are nice. She denies SI/HI. She slept through the night. She does have some resting tremors suspect with haldol. Mental Status Exam Mental Status Exam Patient Appearance: Appropriate Patient Orientation: Person and Situation Level of Consciousness: Awake and Appropriate Patient Behavior: Guarded and Passive Mood Description: Withdrawn Affect Description: Constricted Patient Cognition Impaired: Yes Ability to Follow Directions: Good Speech Pattern: Clear Diagnostics Vital Signs (24Hr): Vital Signs - 24 hr 06/13/23 08:15 Temperature 97.3 F Pulse Rate 80 Respiratory Rate 18 Blood Pressure 140/66 H Pulse Oximetry 96 Oxygen Delivery Method Room Air Labs 06/01/23 08:07 Medications Medications Current Medications Acetaminophen (Acetaminophen 325 Mg Tablet) 650 mg PO Q6H PRN PRN Reason: Headache/Pain Mild Scale (1-3) Al Hydroxide/Mg Hydroxide (Magnesium Hydrox/Alum Hydrox 30 Ml Oral.Susp) 30 ml PO Q6H PRN PRN Reason: Heartburn/Nausea Amlodipine Besylate (Amlodipine Besylate 2.5 Mg Tablet) 2.5 mg PO DAILY [facility]; Protocol Last Admin: 06/13/23 09:18 Dose: Not Given Aripiprazole (Aripiprazole 30 Mg Tablet) 30 mg PO DAILY [facility] Last Admin: 06/13/23 09:16 Dose: 30 mg Divalproex Sodium (Divalproex Sodium Sprinkles 125 Mg ) 500 mg PO BEDTIME [facility] Last Admin: 06/13/23 20:45 Dose: Not Given Haloperidol (Haloperidol 5 Mg Tablet) 5 mg PO DAILY [facility] Last Admin: 06/13/23 09:16 Dose: 5 mg Hydroxyzine HCl (Hydroxyzine Hcl 25 Mg Tablet) 25 mg PO Q6H PRN PRN Reason: Anxiety Magnesium Hydroxide (Milk Of Magnesia 30 Ml Oral.Susp) 30 ml PO DAILY PRN PRN Reason: Constipation Propranolol HCl (Propranolol Hcl 10 Mg Tablet) 10 mg PO BID [facility]; Protocol Last Admin: 06/13/23 20:44 Dose: 10 mg Trazodone HCl (Trazodone Hcl 50 Mg Tablet) 50 mg PO BEDTIME PRN PRN Reason: Insomnia Ziprasidone (Ziprasidone Mesylate 20 Mg Vial) 20 mg IM DAILY PRN PRN Reason: if pt refuses po abilify Osman Allergies Allergies Allergy/AdvReac Type Severity Reaction Status Date / Time aspirin Allergy Hives Verified 05/31/23 16:21 Assessment & Plan Assessment & Plan (1) Schizoaffective disorder: Status: Acute Code(s): F25.9 - Schizoaffective disorder, unspecified Plan The patient is an elderly female, with a long history of psychosis, followed by [facility] through VNA and intensive case management, referred for noncompliance of treatment with exacerbation of psychotic symptoms elicited by disorganized behavior irritability and agitation. Plan 1. Gather collateral information. 2. As per court order we will continue Abilify 30 mg p.o. q.a.m. with backup Geodon IM if the patient refuses. 3. Continue medical workout. 4. Reassessment with results. 5. Filing for Section 7 and 8. We will have a court hearing next week. 06/09: Encourage adherence. Continue current treatment plan. 06/10: Continue current plan of care. 06/11 add haldol 5mg po daily per leesa, back up IM Haldol 06/12 continue tx. 06/13 add cogentin 1mg po daily. Reason for continued inpatient stay Substantial Risk for: inability to function Time Spent With Patient Time: Total time managing care of this patient today ____ minutes.
[2023-06-14 08:27] VITALS: BP 152/67; PULSE 80; RESP 18; TEMP 36.8; O2SAT 98
[2023-06-14] MEDS: HaloperidoL 5 MG TABLET PO (08:45)
[2023-06-14] MEDS: Propranolol HCL 10 MG TABLET PO (08:45)
[2023-06-14] MEDS: ARIPiprazole 30 MG TABLET PO (08:45)
[2023-06-14 13:00] VITALS: RESP 16
[2023-06-14 18:00] VITALS: BP 133/75; PULSE 97; TEMP 36.2; O2SAT 97
--- NOTE | 2023-06-14 20:23 | P.PNPSI_ITS ---
Subjective Subjective Date of Service: 06/14/23 Reason For Visit: Schizoaffective disorder Subjective Notes: Section 7 Interim History: Pt less paranoid and less irritable. She reports she is doing well. She reports she wishes she had shows. She denies having psychiatric condition but does take medications since they are on landers. She denies SI/HI. She slept 6hrs. No behavioral concerns. Review of Systems Review of Systems Patient has no acute medical complaints at this time Yes all other systems are reviewed and are negative Mental Status Exam Mental Status Exam Patient Appearance: Appropriate Patient Orientation: Person Level of Consciousness: Awake and Appropriate Patient Behavior: Guarded and Passive Mood Description: Withdrawn Affect Description: Constricted Patient Cognition Impaired: Yes Ability to Follow Directions: Good Speech Pattern: Clear Diagnostics Vital Signs (24Hr): Vital Signs - 24 hr 06/14/23 08:27 06/14/23 13:00 Temperature 98.2 F Pulse Rate 80 Respiratory Rate 18 16 Blood Pressure 152/67 H Pulse Oximetry 98 Oxygen Delivery Method Room Air Labs 06/01/23 08:07 Medications Medications Current Medications Acetaminophen (Acetaminophen 325 Mg Tablet) 650 mg PO Q6H PRN PRN Reason: Headache/Pain Mild Scale (1-3) Al Hydroxide/Mg Hydroxide (Magnesium Hydrox/Alum Hydrox 30 Ml Oral.Susp) 30 ml PO Q6H PRN PRN Reason: Heartburn/Nausea Amlodipine Besylate (Amlodipine Besylate 2.5 Mg Tablet) 2.5 mg PO DAILY [facility]; Protocol Last Admin: 06/14/23 08:47 Dose: Not Given Aripiprazole (Aripiprazole 30 Mg Tablet) 30 mg PO DAILY [facility] Last Admin: 06/14/23 08:45 Dose: 30 mg Divalproex Sodium (Divalproex Sodium Sprinkles 125 Mg ) 500 mg PO BEDTIME [facility] Last Admin: 06/13/23 20:45 Dose: Not Given Haloperidol (Haloperidol 5 Mg Tablet) 5 mg PO DAILY [facility] Last Admin: 06/14/23 08:45 Dose: 5 mg Hydroxyzine HCl (Hydroxyzine Hcl 25 Mg Tablet) 25 mg PO Q6H PRN PRN Reason: Anxiety Magnesium Hydroxide (Milk Of Magnesia 30 Ml Oral.Susp) 30 ml PO DAILY PRN PRN Reason: Constipation Propranolol HCl (Propranolol Hcl 10 Mg Tablet) 10 mg PO BID [facility]; Protocol Last Admin: 06/14/23 08:45 Dose: 10 mg Trazodone HCl (Trazodone Hcl 50 Mg Tablet) 50 mg PO BEDTIME PRN PRN Reason: Insomnia Ziprasidone (Ziprasidone Mesylate 20 Mg Vial) 20 mg IM DAILY PRN PRN Reason: if pt refuses po abilify Osman Allergies Allergies Allergy/AdvReac Type Severity Reaction Status Date / Time aspirin Allergy Hives Verified 05/31/23 16:21 Assessment & Plan Assessment & Plan (1) Schizoaffective disorder: Status: Acute Code(s): F25.9 - Schizoaffective disorder, unspecified Plan The patient is an elderly female, with a long history of psychosis, followed by [facility] through VNA and intensive case management, referred for noncompliance of treatment with exacerbation of psychotic symptoms elicited by disorganized behavior irritability and agitation. Plan 1. Gather collateral information. 2. As per court order we will continue Abilify 30 mg p.o. q.a.m. with backup Geodon IM if the patient refuses. 3. Continue medical workout. 4. Reassessment with results. 5. Filing for Section 7 and 8. We will have a court hearing next week. 06/09: Encourage adherence. Continue current treatment plan. 06/10: Continue current plan of care. 06/11 add haldol 5mg po daily per leesa, back up IM Haldol 06/12 continue tx. 06/13 add cogentin 1mg po daily. 06/14 continue tx. Reason for continued inpatient stay Substantial Risk for: inability to function Time Spent With Patient Time: Total time managing care of this patient today ____ minutes.
[2023-06-15] MEDS: Propranolol HCL 10 MG TABLET PO ×2 (08:34→20:31)
[2023-06-15 08:56] VITALS: BP 150/65; PULSE 72; RESP 18; TEMP 36; O2SAT 96
[2023-06-15] MEDS: Benztropine Mesylate 1 MG TABLET PO (09:29)
[2023-06-15] MEDS: HaloperidoL 5 MG TABLET PO (09:29)
[2023-06-15] MEDS: ARIPiprazole 30 MG TABLET PO ×2 (09:52→09:53)
--- NOTE | 2023-06-15 15:36 | P.PNPSI_ITS ---
Subjective Subjective Date of Service: 06/15/23 Reason For Visit: Schizoaffective disorder Subjective Notes: Section 7 Interim History: Pt is calmer but still reports that peers on the unit are using [employer] books to cast spells on people. She states that she can tell that peers are doing things to her brain. She denies having psychiatric condition but does take medications since they are on landers. Pt slept through the night. She denies SI/HI. She slept 6hrs. No behavioral concerns. Review of Systems Review of Systems Patient has no acute medical complaints at this time Yes all other systems are reviewed and are negative Mental Status Exam Mental Status Exam Patient Appearance: Appropriate Patient Orientation: Person Level of Consciousness: Awake and Appropriate Patient Behavior: Guarded and Passive Mood Description: Withdrawn Affect Description: Constricted Patient Cognition Impaired: Yes Ability to Follow Directions: Good Speech Pattern: Clear Diagnostics Vital Signs (24Hr): Vital Signs - 24 hr 06/14/23 18:00 06/15/23 08:56 Temperature 97.2 F 96.8 F Pulse Rate 97 72 Respiratory Rate 18 Blood Pressure 133/75 150/65 H Pulse Oximetry 97 96 Oxygen Delivery Method Room Air Room Air Labs 06/01/23 08:07 Medications Medications Current Medications Acetaminophen (Acetaminophen 325 Mg Tablet) 650 mg PO Q6H PRN PRN Reason: Headache/Pain Mild Scale (1-3) Al Hydroxide/Mg Hydroxide (Magnesium Hydrox/Alum Hydrox 30 Ml Oral.Susp) 30 ml PO Q6H PRN PRN Reason: Heartburn/Nausea Amlodipine Besylate (Amlodipine Besylate 2.5 Mg Tablet) 2.5 mg PO DAILY [facility]; Protocol Last Admin: 06/15/23 08:37 Dose: Not Given Aripiprazole (Aripiprazole 30 Mg Tablet) 30 mg PO DAILY [facility] Last Admin: 06/15/23 09:53 Dose: 30 mg Benztropine Mesylate (Benztropine Mesylate 1 Mg Tablet) 1 mg PO DAILY [facility] Last Admin: 06/15/23 09:29 Dose: 1 mg Divalproex Sodium (Divalproex Sodium Sprinkles 125 Mg ) 500 mg PO BEDTIME [facility] Last Admin: 06/14/23 20:38 Dose: Not Given Haloperidol (Haloperidol 5 Mg Tablet) 5 mg PO DAILY [facility] Last Admin: 06/15/23 09:29 Dose: 5 mg Hydroxyzine HCl (Hydroxyzine Hcl 25 Mg Tablet) 25 mg PO Q6H PRN PRN Reason: Anxiety Magnesium Hydroxide (Milk Of Magnesia 30 Ml Oral.Susp) 30 ml PO DAILY PRN PRN Reason: Constipation Propranolol HCl (Propranolol Hcl 10 Mg Tablet) 10 mg PO BID [facility]; Protocol Last Admin: 06/15/23 08:34 Dose: 10 mg Trazodone HCl (Trazodone Hcl 50 Mg Tablet) 50 mg PO BEDTIME PRN PRN Reason: Insomnia Ziprasidone (Ziprasidone Mesylate 20 Mg Vial) 20 mg IM DAILY PRN PRN Reason: if pt refuses po abilify Osman Allergies Allergies Allergy/AdvReac Type Severity Reaction Status Date / Time aspirin Allergy Hives Verified 05/31/23 16:21 Assessment & Plan Assessment & Plan (1) Schizoaffective disorder: Status: Acute Code(s): F25.9 - Schizoaffective disorder, unspecified Plan The patient is an elderly female, with a long history of psychosis, followed by [facility] through VNA and intensive case management, referred for noncompliance of treatment with exacerbation of psychotic symptoms elicited by disorganized behavior irritability and agitation. Plan 1. Gather collateral information. 2. As per court order we will continue Abilify 30 mg p.o. q.a.m. with backup Geodon IM if the patient refuses. 3. Continue medical workout. 4. Reassessment with results. 5. Filing for Section 7 and 8. We will have a court hearing next week. 06/09: Encourage adherence. Continue current treatment plan. 06/10: Continue current plan of care. 06/11 add haldol 5mg po daily per leesa, back up IM Haldol 06/12 continue tx. 06/13 add cogentin 1mg po daily. 06/14 continue tx. 06/15 continue tx. Reason for continued inpatient stay Substantial Risk for: inability to function Time Spent With Patient Time: Total time managing care of this patient today ____ minutes.
[2023-06-15 18:00] VITALS: BP 126/57; PULSE 80; TEMP 35.9; O2SAT 98
[2023-06-16 08:56] VITALS: BP 167/70; PULSE 68; RESP 18; TEMP 35.8; O2SAT 100
[2023-06-16] MEDS: amLODIPine Besylate 2.5 MG TABLET PO (08:58)
[2023-06-16] MEDS: HaloperidoL 5 MG TABLET PO (08:58)
[2023-06-16] MEDS: ARIPiprazole 30 MG TABLET PO (08:59)
[2023-06-16] MEDS: Propranolol HCL 10 MG TABLET PO ×2 (09:00→20:10)
[2023-06-16 13:00] VITALS: BP 113/56; PULSE 67; RESP 18; TEMP 36.7; O2SAT 96
--- NOTE | 2023-06-16 16:46 | HO.PSYCHPN ---
Subjective Subjective Date of Service: 06/16/23 Reason For Visit: Schizoaffective disorder Interim History: Met with patient; discussed with team Patient pleasant on approach. Said she was good. Could not say why she was in the hospital but remains pleasant, social in milieu and adherent. She helped jingle writer find the room of another patient. Mental Status Exam Mental Status Exam Patient Appearance: Appropriate Patient Orientation: Person Level of Consciousness: Awake and Appropriate Patient Behavior: Cooperative, Passive and Good Eye Contact Mood Description: Calm Affect Description: Calm Patient Cognition Impaired: Yes Ability to Follow Directions: Good Speech Pattern: Clear Judgement and Insight: Impaired Diagnostics Vital Signs (24Hr): Vital Signs - 24 hr 06/15/23 18:00 06/16/23 08:56 06/16/23 13:00 Temperature 96.6 F L 96.5 F L 98.1 F Pulse Rate 80 68 67 Respiratory Rate 18 18 Blood Pressure 126/57 L 167/70 H 113/56 L Pulse Oximetry 98 100 96 Oxygen Delivery Method Room Air Room Air Room Air Labs 06/01/23 08:07 Medications Medications Current Medications Acetaminophen (Acetaminophen 325 Mg Tablet) 650 mg PO Q6H PRN PRN Reason: Headache/Pain Mild Scale (1-3) Al Hydroxide/Mg Hydroxide (Magnesium Hydrox/Alum Hydrox 30 Ml Oral.Susp) 30 ml PO Q6H PRN PRN Reason: Heartburn/Nausea Amlodipine Besylate (Amlodipine Besylate 2.5 Mg Tablet) 2.5 mg PO DAILY [facility]; Protocol Last Admin: 06/16/23 08:58 Dose: 2.5 mg Aripiprazole (Aripiprazole 30 Mg Tablet) 30 mg PO DAILY [facility] Last Admin: 06/16/23 08:59 Dose: 30 mg Benztropine Mesylate (Benztropine Mesylate 1 Mg Tablet) 1 mg PO DAILY [facility] Last Admin: 06/16/23 09:01 Dose: Not Given Divalproex Sodium (Divalproex Sodium Sprinkles 125 Mg ) 500 mg PO BEDTIME [facility] Last Admin: 06/15/23 20:42 Dose: Not Given Haloperidol (Haloperidol 5 Mg Tablet) 5 mg PO DAILY [facility] Last Admin: 06/16/23 08:58 Dose: 5 mg Hydroxyzine HCl (Hydroxyzine Hcl 25 Mg Tablet) 25 mg PO Q6H PRN PRN Reason: Anxiety Magnesium Hydroxide (Milk Of Magnesia 30 Ml Oral.Susp) 30 ml PO DAILY PRN PRN Reason: Constipation Propranolol HCl (Propranolol Hcl 10 Mg Tablet) 10 mg PO BID [facility]; Protocol Last Admin: 06/16/23 09:00 Dose: 10 mg Trazodone HCl (Trazodone Hcl 50 Mg Tablet) 50 mg PO BEDTIME PRN PRN Reason: Insomnia Ziprasidone (Ziprasidone Mesylate 20 Mg Vial) 20 mg IM DAILY PRN PRN Reason: if pt refuses po abilify Os[facility] Allergies Allergies Allergy/AdvReac Type Severity Reaction Status Date / Time aspirin Allergy Hives Verified 05/31/23 16:21 Assessment & Plan Assessment & Plan (1) Schizoaffective disorder: Status: Acute Code(s): F25.9 - Schizoaffective disorder, unspecified Plan The patient is an elderly female, with a long history of psychosis, followed by [facility] through VNA and intensive case management, referred for noncompliance of treatment with exacerbation of psychotic symptoms elicited by disorganized behavior irritability and agitation. Plan 1. Gather collateral information. 2. As per court order we will continue Abilify 30 mg p.o. q.a.m. with backup Geodon IM if the patient refuses. 3. Continue medical workout. 4. Reassessment with results. 5. Filing for Section 7 and 8. We will have a court hearing next week. 06/09: Encourage adherence. Continue current treatment plan. 06/10: Continue current plan of care. 06/11 add haldol 5mg po daily per leesa, back up IM Haldol 06/12 continue tx. 06/13 add cogentin 1mg po daily. 06/14 continue tx. 06/15 continue tx. 06/16 continue current treatment plan Reason for continued inpatient stay Substantial Risk for: inability to function Time Spent With Patient Time: Total time managing care of this patient today ____ minutes.
--- NOTE | 2023-06-16 20:36 | PC.NURSE ---
pt refused depakote 500 mg tonight. she said they are using you. I am not taking it. dr. Scott notified. will CONT to monitor any changes.
[2023-06-16 20:39] VITALS: BP 129/47; PULSE 79; RESP 17; TEMP 36.4; O2SAT 97
[2023-06-17 08:10] VITALS: BP 137/61; PULSE 67; RESP 20; TEMP 36.1; O2SAT 99
[2023-06-17] MEDS: amLODIPine Besylate 2.5 MG TABLET PO (08:13)
[2023-06-17] MEDS: ARIPiprazole 30 MG TABLET PO (08:14)
[2023-06-17] MEDS: HaloperidoL 5 MG TABLET PO (08:14)
[2023-06-17] MEDS: Benztropine Mesylate 1 MG TABLET PO (08:14)
[2023-06-17] MEDS: Propranolol HCL 10 MG TABLET PO ×2 (08:14→20:00)
--- NOTE | 2023-06-17 10:50 | HO.PSYCHPN ---
Subjective Subjective Date of Service: 06/17/23 Reason For Visit: Schizoaffective disorder Interim History: Briefly met with patient; discussed with team No change in presentation. Patient is pleasant and polite on approach. Says she is good and sleeping well. Patient continues to refuse Depakote Mental Status Exam Mental Status Exam Patient Appearance: Appropriate Patient Orientation: Person Level of Consciousness: Awake and Appropriate Patient Behavior: Cooperative, Passive and Good Eye Contact Mood Description: Calm Affect Description: Calm Patient Cognition Impaired: Yes Ability to Follow Directions: Good Speech Pattern: Clear Judgement and Insight: Impaired Diagnostics Vital Signs (24Hr): Vital Signs - 24 hr 06/16/23 13:00 06/16/23 20:39 Temperature 98.1 F 97.6 F Pulse Rate 67 79 Respiratory Rate 18 17 Blood Pressure 113/56 L 129/47 L Pulse Oximetry 96 97 Oxygen Delivery Method Room Air Room Air Labs 06/01/23 08:07 Medications Medications Current Medications Acetaminophen (Acetaminophen 325 Mg Tablet) 650 mg PO Q6H PRN PRN Reason: Headache/Pain Mild Scale (1-3) Al Hydroxide/Mg Hydroxide (Magnesium Hydrox/Alum Hydrox 30 Ml Oral.Susp) 30 ml PO Q6H PRN PRN Reason: Heartburn/Nausea Amlodipine Besylate (Amlodipine Besylate 2.5 Mg Tablet) 2.5 mg PO DAILY [facility]; Protocol Last Admin: 06/17/23 08:13 Dose: 2.5 mg Aripiprazole (Aripiprazole 30 Mg Tablet) 30 mg PO DAILY [facility] Last Admin: 06/17/23 08:14 Dose: 30 mg Benztropine Mesylate (Benztropine Mesylate 1 Mg Tablet) 1 mg PO DAILY [facility] Last Admin: 06/17/23 08:14 Dose: 1 mg Divalproex Sodium (Divalproex Sodium Sprinkles 125 Mg ) 500 mg PO BEDTIME [facility] Last Admin: 06/16/23 20:12 Dose: Not Given Haloperidol (Haloperidol 5 Mg Tablet) 5 mg PO DAILY [facility] Last Admin: 06/17/23 08:14 Dose: 5 mg Hydroxyzine HCl (Hydroxyzine Hcl 25 Mg Tablet) 25 mg PO Q6H PRN PRN Reason: Anxiety Magnesium Hydroxide (Milk Of Magnesia 30 Ml Oral.Susp) 30 ml PO DAILY PRN PRN Reason: Constipation Propranolol HCl (Propranolol Hcl 10 Mg Tablet) 10 mg PO BID [facility]; Protocol Last Admin: 06/17/23 08:14 Dose: 10 mg Trazodone HCl (Trazodone Hcl 50 Mg Tablet) 50 mg PO BEDTIME PRN PRN Reason: Insomnia Ziprasidone (Ziprasidone Mesylate 20 Mg Vial) 20 mg IM DAILY PRN PRN Reason: if pt refuses po abilify Osman Allergies Allergies Allergy/AdvReac Type Severity Reaction Status Date / Time aspirin Allergy Hives Verified 05/31/23 16:21 Assessment & Plan Assessment & Plan (1) Schizoaffective disorder: Status: Acute Code(s): F25.9 - Schizoaffective disorder, unspecified Plan The patient is an elderly female, with a long history of psychosis, followed by [facility] through VNA and intensive case management, referred for noncompliance of treatment with exacerbation of psychotic symptoms elicited by disorganized behavior irritability and agitation. Plan 1. Gather collateral information. 2. As per court order we will continue Abilify 30 mg p.o. q.a.m. with backup Geodon IM if the patient refuses. 3. Continue medical workout. 4. Reassessment with results. 5. Filing for Section 7 and 8. We will have a court hearing next week. 06/09: Encourage adherence. Continue current treatment plan. 06/10: Continue current plan of care. 06/11 add haldol 5mg po daily per leesa, back up IM Haldol 06/12 continue tx. 06/13 add cogentin 1mg po daily. 06/14 continue tx. 06/15 continue tx. 06/16 continue current treatment plan 06/17 continue current treatment plan (continues to refuse Depakote) Reason for continued inpatient stay Substantial Risk for: inability to function Time Spent With Patient Time: Total time managing care of this patient today ____ minutes.
[2023-06-17 15:46] VITALS: BP 135/62; PULSE 69; RESP 20; TEMP 35.7; O2SAT 96
[2023-06-17 18:00] VITALS: BP 131/67; PULSE 73; RESP 16; TEMP 36.8; O2SAT 97
[2023-06-18] MEDS: Acetaminophen 325 MG TABLET 650 MG PO (04:57)
[2023-06-18 08:06] VITALS: BP 145/56; PULSE 68; RESP 20; TEMP 36; O2SAT 98
[2023-06-18] MEDS: ARIPiprazole 30 MG TABLET PO (08:10)
[2023-06-18] MEDS: Benztropine Mesylate 1 MG TABLET PO (08:11)
[2023-06-18] MEDS: Propranolol HCL 10 MG TABLET PO ×2 (08:11→20:21)
[2023-06-18] MEDS: HaloperidoL 5 MG TABLET PO (08:11)
[2023-06-18] MEDS: amLODIPine Besylate 2.5 MG TABLET PO (08:11)
--- NOTE | 2023-06-18 10:33 | P.PNPSI_ITS ---
Subjective Subjective Date of Service: 06/18/23 Reason For Visit: Schizoaffective disorder Interim History: discussed with team no change in presentation Mental Status Exam Mental Status Exam Patient Appearance: Appropriate Patient Orientation: Person Level of Consciousness: Awake and Appropriate Patient Behavior: Cooperative, Passive and Good Eye Contact Mood Description: Calm Affect Description: Calm Patient Cognition Impaired: Yes Ability to Follow Directions: Good Speech Pattern: Clear Judgement and Insight: Impaired Diagnostics Vital Signs (24Hr): Vital Signs - 24 hr 06/17/23 15:46 06/17/23 18:00 06/18/23 08:06 Temperature 96.3 F L 98.2 F 96.8 F Pulse Rate 69 73 68 Respiratory Rate 20 16 20 Blood Pressure 135/62 131/67 145/56 H Pulse Oximetry 96 97 98 Oxygen Delivery Method Room Air Room Air Room Air Labs 06/01/23 08:07 Medications Medications Current Medications Acetaminophen (Acetaminophen 325 Mg Tablet) 650 mg PO Q6H PRN PRN Reason: Headache/Pain Mild Scale (1-3) Last Admin: 06/18/23 04:57 Dose: 650 mg Al Hydroxide/Mg Hydroxide (Magnesium Hydrox/Alum Hydrox 30 Ml Oral.Susp) 30 ml PO Q6H PRN PRN Reason: Heartburn/Nausea Amlodipine Besylate (Amlodipine Besylate 2.5 Mg Tablet) 2.5 mg PO DAILY [facility]; Protocol Last Admin: 06/18/23 08:11 Dose: 2.5 mg Aripiprazole (Aripiprazole 30 Mg Tablet) 30 mg PO DAILY [facility] Last Admin: 06/18/23 08:10 Dose: 30 mg Benztropine Mesylate (Benztropine Mesylate 1 Mg Tablet) 1 mg PO DAILY [facility] Last Admin: 06/18/23 08:11 Dose: 1 mg Divalproex Sodium (Divalproex Sodium Sprinkles 125 Mg ) 500 mg PO BEDTIME [facility] Last Admin: 06/17/23 20:01 Dose: Not Given Haloperidol (Haloperidol 5 Mg Tablet) 5 mg PO DAILY [facility] Last Admin: 06/18/23 08:11 Dose: 5 mg Hydroxyzine HCl (Hydroxyzine Hcl 25 Mg Tablet) 25 mg PO Q6H PRN PRN Reason: Anxiety Magnesium Hydroxide (Milk Of Magnesia 30 Ml Oral.Susp) 30 ml PO DAILY PRN PRN Reason: Constipation Propranolol HCl (Propranolol Hcl 10 Mg Tablet) 10 mg PO BID [facility]; Protocol Last Admin: 06/18/23 08:11 Dose: 10 mg Trazodone HCl (Trazodone Hcl 50 Mg Tablet) 50 mg PO BEDTIME PRN PRN Reason: Insomnia Ziprasidone (Ziprasidone Mesylate 20 Mg Vial) 20 mg IM DAILY PRN PRN Reason: if pt refuses po abilify Osman Allergies Allergies Allergy/AdvReac Type Severity Reaction Status Date / Time aspirin Allergy Hives Verified 05/31/23 16:21 Assessment & Plan Assessment & Plan (1) Schizoaffective disorder: Status: Acute Code(s): F25.9 - Schizoaffective disorder, unspecified Plan The patient is an elderly female, with a long history of psychosis, followed by [facility] through VNA and intensive case management, referred for noncompliance of treatment with exacerbation of psychotic symptoms elicited by disorganized behavior irritability and agitation. Plan 1. Gather collateral information. 2. As per court order we will continue Abilify 30 mg p.o. q.a.m. with backup Geodon IM if the patient refuses. 3. Continue medical workout. 4. Reassessment with results. 5. Filing for Section 7 and 8. We will have a court hearing next week. 06/09: Encourage adherence. Continue current treatment plan. 06/10: Continue current plan of care. 06/11 add haldol 5mg po daily per leesa, back up IM Haldol 06/12 continue tx. 06/13 add cogentin 1mg po daily. 06/14 continue tx. 06/15 continue tx. 06/16 continue current treatment plan 06/17 continue current treatment plan (continues to refuse Depakote) 06/18 no change in tx plan Reason for continued inpatient stay Substantial Risk for: inability to function Time Spent With Patient Time: Total time managing care of this patient today ____ minutes.
[2023-06-18 16:49] VITALS: BP 126/58; PULSE 67; RESP 20; O2SAT 96
[2023-06-18 20:34] VITALS: BP 161/68; PULSE 65; RESP 18; TEMP 36.2; O2SAT 98
[2023-06-19 08:05] VITALS: BP 134/59; PULSE 71; RESP 18; TEMP 36.4; O2SAT 98
[2023-06-19] MEDS: Benztropine Mesylate 1 MG TABLET PO (08:15)
[2023-06-19] MEDS: ARIPiprazole 30 MG TABLET PO (08:16)
[2023-06-19] MEDS: HaloperidoL 5 MG TABLET PO (08:16)
[2023-06-19] MEDS: Propranolol HCL 10 MG TABLET PO ×2 (08:16→20:13)
--- NOTE | 2023-06-19 10:49 | HO.PSYCHPN ---
Subjective Subjective Date of Service: 06/19/23 Reason For Visit: Schizoaffective disorder Subjective Notes: Conditional Voluntary Healthcare Proxy: Yes Interim History: Pt continues to present with some paranoid delusions, thinking peer may be casting spells- she tells this writer technical publications she has some tremors and this is due to spells that peer is doing on her. She denies SI/HI. She continues to report that she does not have a mental illness nor she needs medications. She was reminded of osman's order, which she states she will alyson everyone because this is not accurate. She does state but if it help to get out of here, I will take the medication. She slept through the night. She continues to decline medication for BP. VS stable. Review of Systems Review of Systems Patient has no acute medical complaints at this time Yes all other systems are reviewed and are negative Mental Status Exam Mental Status Exam Patient Appearance: Appropriate Patient Orientation: Person Level of Consciousness: Awake and Appropriate Patient Behavior: Cooperative, Passive and Good Eye Contact Mood Description: Calm Affect Description: Calm Patient Cognition Impaired: Yes Ability to Follow Directions: Good Speech Pattern: Clear Diagnostics Vital Signs (24Hr): Vital Signs - 24 hr 06/18/23 16:49 06/18/23 20:34 Temperature 97.1 F Pulse Rate 67 65 Respiratory Rate 20 18 Blood Pressure 126/58 L 161/68 H Pulse Oximetry 96 98 Oxygen Delivery Method Room Air Room Air Labs 06/01/23 08:07 Medications Medications Current Medications Acetaminophen (Acetaminophen 325 Mg Tablet) 650 mg PO Q6H PRN PRN Reason: Headache/Pain Mild Scale (1-3) Last Admin: 06/18/23 04:57 Dose: 650 mg Al Hydroxide/Mg Hydroxide (Magnesium Hydrox/Alum Hydrox 30 Ml Oral.Susp) 30 ml PO Q6H PRN PRN Reason: Heartburn/Nausea Amlodipine Besylate (Amlodipine Besylate 2.5 Mg Tablet) 2.5 mg PO DAILY [facility]; Protocol Last Admin: 06/19/23 08:17 Dose: Not Given Aripiprazole (Aripiprazole 30 Mg Tablet) 30 mg PO DAILY [facility] Last Admin: 06/19/23 08:16 Dose: 30 mg Benztropine Mesylate (Benztropine Mesylate 1 Mg Tablet) 1 mg PO DAILY [facility] Last Admin: 06/19/23 08:15 Dose: 1 mg Divalproex Sodium (Divalproex Sodium Sprinkles 125 Mg ) 500 mg PO BEDTIME [facility] Last Admin: 06/18/23 20:21 Dose: Not Given Haloperidol (Haloperidol 5 Mg Tablet) 5 mg PO DAILY [facility] Last Admin: 06/19/23 08:16 Dose: 5 mg Hydroxyzine HCl (Hydroxyzine Hcl 25 Mg Tablet) 25 mg PO Q6H PRN PRN Reason: Anxiety Magnesium Hydroxide (Milk Of Magnesia 30 Ml Oral.Susp) 30 ml PO DAILY PRN PRN Reason: Constipation Propranolol HCl (Propranolol Hcl 10 Mg Tablet) 10 mg PO BID [facility]; Protocol Last Admin: 06/19/23 08:16 Dose: 10 mg Trazodone HCl (Trazodone Hcl 50 Mg Tablet) 50 mg PO BEDTIME PRN PRN Reason: Insomnia Ziprasidone (Ziprasidone Mesylate 20 Mg Vial) 20 mg IM DAILY PRN PRN Reason: if pt refuses po abilify Osman Allergies Allergies Allergy/AdvReac Type Severity Reaction Status Date / Time aspirin Allergy Hives Verified 05/31/23 16:21 Assessment & Plan Assessment & Plan (1) Schizoaffective disorder: Status: Acute Code(s): F25.9 - Schizoaffective disorder, unspecified Plan The patient is an elderly female, with a long history of psychosis, followed by [facility] through VNA and intensive case management, referred for noncompliance of treatment with exacerbation of psychotic symptoms elicited by disorganized behavior irritability and agitation. Plan 1. Gather collateral information. 2. As per court order we will continue Abilify 30 mg p.o. q.a.m. with backup Geodon IM if the patient refuses. 3. Continue medical workout. 4. Reassessment with results. 5. Filing for Section 7 and 8. We will have a court hearing next week. 06/09: Encourage adherence. Continue current treatment plan. 06/10: Continue current plan of care. 06/11 add haldol 5mg po daily per leesa, back up IM Haldol 06/12 continue tx. 06/13 add cogentin 1mg po daily. 06/14 continue tx. 06/15 continue tx. 06/16 continue current treatment plan 06/17 continue current treatment plan (continues to refuse Depakote) 06/18 no change in tx plan 06/19 pt to receive MARTINO Abilify Maintena 400mg IM q monthly. continue oral as there is 2 week delay onset. continue haldol and cogentin. Reason for continued inpatient stay Substantial Risk for: inability to function Time Spent With Patient Time: Total time managing care of this patient today ____ minutes.
[2023-06-19] MEDS: ARIPiprazole ER 400 MG SUSER.SYR IM (13:32)
--- NOTE | 2023-06-19 13:40 | PC.NURSE ---
Patient agreeable to IM injection of Abilify, tolerated injection to right deltoid well.
[2023-06-19 21:12] VITALS: BP 138/65; PULSE 78; RESP 16; TEMP 36.6; O2SAT 96
[2023-06-20 08:46] VITALS: BP 144/65; PULSE 76; RESP 16; TEMP 36.4; O2SAT 97
[2023-06-20] MEDS: amLODIPine Besylate 2.5 MG TABLET PO (09:41)
[2023-06-20] MEDS: Benztropine Mesylate 1 MG TABLET PO (09:41)
[2023-06-20] MEDS: ARIPiprazole 30 MG TABLET PO (09:41)
[2023-06-20] MEDS: Propranolol HCL 10 MG TABLET PO ×2 (09:41→19:55)
[2023-06-20] MEDS: HaloperidoL 5 MG TABLET PO (09:42)
--- NOTE | 2023-06-20 15:01 | HO.PSYCHPN ---
Subjective Subjective Date of Service: 06/20/23 Reason For Visit: Schizoaffective disorder Subjective Notes: Section 7 Interim History: Pt more visible and social with select peers. She has attended some groups. She denies SI/HI. Less paranoid ideas related to peers casting spells on her and others. However, pt very guarded and irritable when discussing aftercare planning- stating she does not have mental illness and she does not need psychiatrist or a visiting nurse. She became upset with this remote mortgage underwriter when discussing outpatient services and walked away... I don't trust you anymore! Review of Systems Review of Systems Patient has no acute medical complaints at this time Yes all other systems are reviewed and are negative Mental Status Exam Mental Status Exam Patient Appearance: Appropriate Patient Orientation: Person Level of Consciousness: Awake and Appropriate Patient Behavior: Cooperative, Passive and Good Eye Contact Mood Description: Calm Affect Description: Calm Patient Cognition Impaired: Yes Ability to Follow Directions: Good Speech Pattern: Clear Diagnostics Vital Signs (24Hr): Vital Signs - 24 hr 06/19/23 21:12 06/20/23 08:46 Temperature 97.8 F 97.6 F Pulse Rate 78 76 Respiratory Rate 16 16 Blood Pressure 138/65 144/65 H Pulse Oximetry 96 97 Oxygen Delivery Method Room Air Room Air Labs 06/01/23 08:07 Medications Medications Current Medications Acetaminophen (Acetaminophen 325 Mg Tablet) 650 mg PO Q6H PRN PRN Reason: Headache/Pain Mild Scale (1-3) Last Admin: 06/18/23 04:57 Dose: 650 mg Al Hydroxide/Mg Hydroxide (Magnesium Hydrox/Alum Hydrox 30 Ml Oral.Susp) 30 ml PO Q6H PRN PRN Reason: Heartburn/Nausea Amlodipine Besylate (Amlodipine Besylate 2.5 Mg Tablet) 2.5 mg PO DAILY [facility]; Protocol Last Admin: 06/20/23 09:41 Dose: 2.5 mg Aripiprazole (Aripiprazole 30 Mg Tablet) 30 mg PO DAILY [facility] Last Admin: 06/20/23 09:41 Dose: 30 mg Aripiprazole (Aripiprazole Er 400 Mg Suser.Syr) 400 mg IM Q28D [facility] Last Admin: 06/19/23 13:32 Dose: 400 mg Benztropine Mesylate (Benztropine Mesylate 1 Mg Tablet) 1 mg PO DAILY [facility] Last Admin: 06/20/23 09:41 Dose: 1 mg Divalproex Sodium (Divalproex Sodium Sprinkles 125 Mg ) 500 mg PO BEDTIME [facility] Last Admin: 06/19/23 20:15 Dose: Not Given Haloperidol (Haloperidol 5 Mg Tablet) 5 mg PO DAILY [facility] Last Admin: 06/20/23 09:42 Dose: 5 mg Hydroxyzine HCl (Hydroxyzine Hcl 25 Mg Tablet) 25 mg PO Q6H PRN PRN Reason: Anxiety Magnesium Hydroxide (Milk Of Magnesia 30 Ml Oral.Susp) 30 ml PO DAILY PRN PRN Reason: Constipation Propranolol HCl (Propranolol Hcl 10 Mg Tablet) 10 mg PO BID [facility]; Protocol Last Admin: 06/20/23 09:41 Dose: 10 mg Trazodone HCl (Trazodone Hcl 50 Mg Tablet) 50 mg PO BEDTIME PRN PRN Reason: Insomnia Ziprasidone (Ziprasidone Mesylate 20 Mg Vial) 20 mg IM DAILY PRN PRN Reason: if pt refuses po abilify Osman Allergies Allergies Allergy/AdvReac Type Severity Reaction Status Date / Time aspirin Allergy Hives Verified 05/31/23 16:21 Assessment & Plan Assessment & Plan (1) Schizoaffective disorder: Status: Acute Code(s): F25.9 - Schizoaffective disorder, unspecified Plan The patient is an elderly female, with a long history of psychosis, followed by [facility] through VNA and intensive case management, referred for noncompliance of treatment with exacerbation of psychotic symptoms elicited by disorganized behavior irritability and agitation. Plan 1. Gather collateral information. 2. As per court order we will continue Abilify 30 mg p.o. q.a.m. with backup Geodon IM if the patient refuses. 3. Continue medical workout. 4. Reassessment with results. 5. Filing for Section 7 and 8. We will have a court hearing next week. 06/09: Encourage adherence. Continue current treatment plan. 06/10: Continue current plan of care. 06/11 add haldol 5mg po daily per leesa, back up IM Haldol 06/12 continue tx. 06/13 add cogentin 1mg po daily. 06/14 continue tx. 06/15 continue tx. 06/16 continue current treatment plan 06/17 continue current treatment plan (continues to refuse Depakote) 06/18 no change in tx plan 06/19 pt to receive MARTINO Abilify Maintena 400mg IM q monthly. continue oral as there is 2 week delay onset. continue haldol and cogentin. 06/20 continue tx. Reason for continued inpatient stay Substantial Risk for: inability to function Time Spent With Patient Time: Total time managing care of this patient today ____ minutes.
[2023-06-20 20:26] VITALS: BP 114/64; PULSE 86; RESP 16; TEMP 36.1; O2SAT 96
[2023-06-21 07:00] VITALS: BMI 27.8
[2023-06-21 08:15] VITALS: BP 120/57; PULSE 76; RESP 16; TEMP 36.2; O2SAT 98
[2023-06-21] MEDS: ARIPiprazole 30 MG TABLET PO (08:39)
[2023-06-21] MEDS: Benztropine Mesylate 1 MG TABLET PO (08:40)
[2023-06-21] MEDS: Propranolol HCL 10 MG TABLET PO ×2 (08:40→20:10)
[2023-06-21] MEDS: HaloperidoL 5 MG TABLET PO (08:40)
--- NOTE | 2023-06-21 16:06 | HO.PSYCHPN ---
Subjective Subjective Date of Service: 06/21/23 Reason For Visit: Schizoaffective disorder Subjective Notes: Section 7 Interim History: Pt continues to present as more visible and social with select peers. She has attended some groups- participates appropriately. She denies SI/HI. Less paranoid ideas related to peers casting spells on her and others. However, continues to present as guarded and irritable when discussing aftercare planning- stating she does not have mental illness and she does not need psychiatrist or a visiting nurse. Review of Systems Review of Systems Patient has no acute medical complaints at this time Yes all other systems are reviewed and are negative Mental Status Exam Mental Status Exam Narrative: Appearance: casually groomed, fair hygiene, in NAD Behavior: cooperative Psychomotor: no agitation or retardation noted Speech: clear, normal rate/rhythm/volume, spontaneous TP: linear TC: some paranoid ideas of peers doing spells, no insight into mental illness or need for treatment Mood: good Affect congruent, SI: none HI: none VH/AH: less talking to someone who is not there Delusions: less paranoid delusions Insight/judgment: poor x 2 Alert, oriented x 3. Diagnostics Vital Signs (24Hr): Vital Signs - 24 hr 06/20/23 20:26 06/21/23 08:15 Temperature 97.0 F 97.2 F Pulse Rate 86 76 Respiratory Rate 16 16 Blood Pressure 114/64 120/57 L Pulse Oximetry 96 98 Oxygen Delivery Method Room Air Room Air BMI result Body Mass Index 27.8 Labs 06/01/23 08:07 Medications Medications Current Medications Acetaminophen (Acetaminophen 325 Mg Tablet) 650 mg PO Q6H PRN PRN Reason: Headache/Pain Mild Scale (1-3) Last Admin: 06/18/23 04:57 Dose: 650 mg Al Hydroxide/Mg Hydroxide (Magnesium Hydrox/Alum Hydrox 30 Ml Oral.Susp) 30 ml PO Q6H PRN PRN Reason: Heartburn/Nausea Amlodipine Besylate (Amlodipine Besylate 2.5 Mg Tablet) 2.5 mg PO DAILY [facility]; Protocol Last Admin: 06/21/23 08:38 Dose: Not Given Aripiprazole (Aripiprazole 30 Mg Tablet) 30 mg PO DAILY [facility] Last Admin: 06/21/23 08:39 Dose: 30 mg Aripiprazole (Aripiprazole Er 400 Mg Suser.Syr) 400 mg IM Q28D [facility] Last Admin: 06/19/23 13:32 Dose: 400 mg Benztropine Mesylate (Benztropine Mesylate 1 Mg Tablet) 1 mg PO DAILY [facility] Last Admin: 06/21/23 08:40 Dose: 1 mg Divalproex Sodium (Divalproex Sodium Sprinkles 125 Mg Cap.) 500 mg PO BEDTIME [facility] Last Admin: 06/20/23 19:55 Dose: Not Given Haloperidol (Haloperidol 5 Mg Tablet) 5 mg PO DAILY [facility] Last Admin: 06/21/23 08:40 Dose: 5 mg Hydroxyzine HCl (Hydroxyzine Hcl 25 Mg Tablet) 25 mg PO Q6H PRN PRN Reason: Anxiety Magnesium Hydroxide (Milk Of Magnesia 30 Ml Oral.Susp) 30 ml PO DAILY PRN PRN Reason: Constipation Propranolol HCl (Propranolol Hcl 10 Mg Tablet) 10 mg PO BID [facility]; Protocol Last Admin: 06/21/23 08:40 Dose: 10 mg Trazodone HCl (Trazodone Hcl 50 Mg Tablet) 50 mg PO BEDTIME PRN PRN Reason: Insomnia Ziprasidone (Ziprasidone Mesylate 20 Mg Vial) 20 mg IM DAILY PRN PRN Reason: if pt refuses po abilify Osman Allergies Allergies Allergy/AdvReac Type Severity Reaction Status Date / Time aspirin Allergy Hives Verified 05/31/23 16:21 Assessment & Plan Assessment & Plan (1) Schizoaffective disorder: Status: Acute Code(s): F25.9 - Schizoaffective disorder, unspecified Plan The patient is an elderly female, with a long history of psychosis, followed by [facility] through VNA and intensive case management, referred for noncompliance of treatment with exacerbation of psychotic symptoms elicited by disorganized behavior irritability and agitation. Plan 1. Gather collateral information. 2. As per court order we will continue Abilify 30 mg p.o. q.a.m. with backup Geodon IM if the patient refuses. 3. Continue medical workout. 4. Reassessment with results. 5. Filing for Section 7 and 8. We will have a court hearing next week. 06/09: Encourage adherence. Continue current treatment plan. 06/10: Continue current plan of care. 06/11 add haldol 5mg po daily per leesa, back up IM Haldol 06/12 continue tx. 06/13 add cogentin 1mg po daily. 06/14 continue tx. 06/15 continue tx. 06/16 continue current treatment plan 06/17 continue current treatment plan (continues to refuse Depakote) 06/18 no change in tx plan 06/19 pt to receive MARTINO Abilify Maintena 400mg IM q monthly. continue oral as there is 2 week delay onset. continue haldol and cogentin. 06/20 continue tx. 06/21 continue tx. Reason for continued inpatient stay Substantial Risk for: inability to function Time Spent With Patient Time: Total time managing care of this patient today ____ minutes.
[2023-06-21 22:00] VITALS: BP 126/58; PULSE 81; RESP 17; TEMP 36.8; O2SAT 97
[2023-06-22 07:30] VITALS: BP 123/55; PULSE 64; RESP 18; TEMP 35.6; O2SAT 97
[2023-06-22] MEDS: HaloperidoL 5 MG TABLET PO (08:11)
[2023-06-22] MEDS: Benztropine Mesylate 1 MG TABLET PO (08:12)
[2023-06-22] MEDS: amLODIPine Besylate 2.5 MG TABLET PO (08:13)
[2023-06-22] MEDS: ARIPiprazole 30 MG TABLET PO (08:13)
[2023-06-22] MEDS: Propranolol HCL 10 MG TABLET PO ×2 (08:14→20:20)
--- NOTE | 2023-06-22 15:09 | MHC.CLN ---
F/U PATIENT WITH VERY GOOD INTAKE AT MEALS. DISCONTINUING ENSURE SUPPLEMENT.
[2023-06-22 22:00] VITALS: BP 127/58; PULSE 79; RESP 16; TEMP 36.1; O2SAT 97
--- NOTE | 2023-06-23 08:43 | P.PNPSI_ITS ---
Subjective Subjective Date of Service: 06/23/23 Reason For Visit: Schizoaffective disorder Interim History: Pt was seen and discussed with team. Plan of care was reviewed. Team reports no behaviors of concern with adequate sleep and appetite. They do report she can have irritability at times. Pt was resting very comfortably in bed when seen, napping. She did not respond to verbal cues, but did change position when attempting to awaken her. No changes were made in regime or plan of care today. Medication Compliance: Yes Side effects from medications: No Attending Groups: Intermittent Review of Systems Acute medical concerns: No Medical Review of Systems: unchanged Mental Status Exam Mental Status Exam Patient Appearance: Fatigued Patient Orientation: Person Level of Consciousness: Sedated Patient Behavior: Sedated and Poor Eye Contact Mood Description: Calm Affect Description: Calm Patient Cognition Impaired: Yes Speech Pattern: No Speech Judgement: Poor Diagnostics Vital Signs (24Hr): Vital Signs - 24 hr 06/22/23 22:00 Temperature 97 F Pulse Rate 79 Respiratory Rate 16 Blood Pressure 127/58 L Pulse Oximetry 97 Oxygen Delivery Method Room Air BMI result Body Mass Index 27.8 Labs 06/01/23 08:07 Medications Medications Current Medications Acetaminophen (Acetaminophen 325 Mg Tablet) 650 mg PO Q6H PRN PRN Reason: Headache/Pain Mild Scale (1-3) Last Admin: 06/18/23 04:57 Dose: 650 mg Al Hydroxide/Mg Hydroxide (Magnesium Hydrox/Alum Hydrox 30 Ml Oral.Susp) 30 ml PO Q6H PRN PRN Reason: Heartburn/Nausea Amlodipine Besylate (Amlodipine Besylate 2.5 Mg Tablet) 2.5 mg PO DAILY [facility]; Protocol Last Admin: 06/22/23 08:13 Dose: 2.5 mg Aripiprazole (Aripiprazole 30 Mg Tablet) 30 mg PO DAILY [facility] Last Admin: 06/22/23 08:13 Dose: 30 mg Aripiprazole (Aripiprazole Er 400 Mg Suser.Syr) 400 mg IM Q28D [facility] Last Admin: 06/19/23 13:32 Dose: 400 mg Benztropine Mesylate (Benztropine Mesylate 1 Mg Tablet) 1 mg PO DAILY [facility] Last Admin: 06/22/23 08:12 Dose: 1 mg Divalproex Sodium (Divalproex Sodium Sprinkles 125 Mg ) 500 mg PO BEDTIME [facility] Last Admin: 06/22/23 20:21 Dose: Not Given Haloperidol (Haloperidol 5 Mg Tablet) 5 mg PO DAILY [facility] Last Admin: 06/22/23 08:11 Dose: 5 mg Hydroxyzine HCl (Hydroxyzine Hcl 25 Mg Tablet) 25 mg PO Q6H PRN PRN Reason: Anxiety Magnesium Hydroxide (Milk Of Magnesia 30 Ml Oral.Susp) 30 ml PO DAILY PRN PRN Reason: Constipation Propranolol HCl (Propranolol Hcl 10 Mg Tablet) 10 mg PO BID [facility]; Protocol Last Admin: 06/22/23 20:20 Dose: 10 mg Trazodone HCl (Trazodone Hcl 50 Mg Tablet) 50 mg PO BEDTIME PRN PRN Reason: Insomnia Ziprasidone (Ziprasidone Mesylate 20 Mg Vial) 20 mg IM DAILY PRN PRN Reason: if pt refuses po abilify Osman Allergies Allergies Allergy/AdvReac Type Severity Reaction Status Date / Time aspirin Allergy Hives Verified 05/31/23 16:21 Assessment & Plan Assessment & Plan (1) Schizoaffective disorder: Status: Acute Code(s): F25.9 - Schizoaffective disorder, unspecified Plan The patient is an elderly female, with a long history of psychosis, followed by [facility] through [facility]NA and intensive case management, referred for noncompliance of treatment with exacerbation of psychotic symptoms elicited by disorganized behavior irritability and agitation. Plan 1. Gather collateral information. 2. As per court order we will continue Abilify 30 mg p.o. q.a.m. with backup Geodon IM if the patient refuses. 3. Continue medical workout. 4. Reassessment with results. 5. Filing for Section 7 and 8. We will have a court hearing next week. 06/09: Encourage adherence. Continue current treatment plan. 06/10: Continue current plan of care. 06/11 add haldol 5mg po daily per leesa, back up IM Haldol 06/12 continue tx. 06/13 add cogentin 1mg po daily. 06/14 continue tx. 06/15 continue tx. 06/16 continue current treatment plan 06/17 continue current treatment plan (continues to refuse Depakote) 06/18 no change in tx plan 06/19 pt to receive MARTINO Abilify Maintena 400mg IM q monthly. continue oral as there is 2 week delay onset. continue haldol and cogentin. 06/20 continue tx. 06/21 continue tx. 06/23/23 Continue regime and plan of care Reason for continued inpatient stay Substantial Risk for: rapid decompensation Time Spent With Patient Time: Total time managing care of this patient today ____ minutes.
[2023-06-23 08:58] VITALS: BP 143/65; PULSE 76; RESP 16; TEMP 36.2; O2SAT 99
[2023-06-23] MEDS: Propranolol HCL 10 MG TABLET PO ×2 (10:32→20:16)
[2023-06-23] MEDS: Benztropine Mesylate 1 MG TABLET PO (10:32)
[2023-06-23] MEDS: HaloperidoL 5 MG TABLET PO (10:32)
[2023-06-23] MEDS: ARIPiprazole 30 MG TABLET PO (10:32)
[2023-06-23] MEDS: amLODIPine Besylate 2.5 MG TABLET PO (10:32)
[2023-06-23 20:52] VITALS: BP 130/59; PULSE 82; RESP 19; TEMP 37.4; O2SAT 100
--- NOTE | 2023-06-24 05:42 | HO.PSYCHPN ---
Subjective Subjective Date of Service: 06/24/23 Reason For Visit: Schizoaffective disorder Interim History: Pt seen, discussed with the team. Plan of care reviewed. In the milieu, team reports she did refuse amlodipine today. She is attentive to peers and milieu activity. Medication Compliance: Intermittent Side effects from medications: No Attending Groups: Intermittent Review of Systems Acute medical concerns: No Medical Review of Systems: unchanged Mental Status Exam Mental Status Exam Patient Appearance: Appropriate Patient Orientation: Person Level of Consciousness: Alert Patient Behavior: Appropriate and Poor Eye Contact Mood Description: Calm Affect Description: Calm Patient Cognition Impaired: Yes Speech Pattern: Spontaneous Speech Thought Content: positive for Garner and positive for Circumstantial Judgement: Fair Diagnostics Vital Signs (24Hr): Vital Signs - 24 hr 06/23/23 08:58 06/23/23 20:52 Temperature 97.2 F 99.3 F Pulse Rate 76 82 Respiratory Rate 16 19 Blood Pressure 143/65 H 130/59 L Pulse Oximetry 99 100 Oxygen Delivery Method Room Air Room Air BMI result Body Mass Index 27.8 Labs 06/01/23 08:07 Medications Medications Current Medications Acetaminophen (Acetaminophen 325 Mg Tablet) 650 mg PO Q6H PRN PRN Reason: Headache/Pain Mild Scale (1-3) Last Admin: 06/18/23 04:57 Dose: 650 mg Al Hydroxide/Mg Hydroxide (Magnesium Hydrox/Alum Hydrox 30 Ml Oral.Susp) 30 ml PO Q6H PRN PRN Reason: Heartburn/Nausea Amlodipine Besylate (Amlodipine Besylate 2.5 Mg Tablet) 2.5 mg PO DAILY [facility]; Protocol Last Admin: 06/23/23 10:32 Dose: 2.5 mg Aripiprazole (Aripiprazole 30 Mg Tablet) 30 mg PO DAILY [facility] Last Admin: 06/23/23 10:32 Dose: 30 mg Aripiprazole (Aripiprazole Er 400 Mg Suser.Syr) 400 mg IM Q28D [facility] Last Admin: 06/19/23 13:32 Dose: 400 mg Benztropine Mesylate (Benztropine Mesylate 1 Mg Tablet) 1 mg PO DAILY [facility] Last Admin: 06/23/23 10:32 Dose: 1 mg Divalproex Sodium (Divalproex Sodium Sprinkles 125 Mg ) 500 mg PO BEDTIME [facility] Last Admin: 06/23/23 20:17 Dose: Not Given Haloperidol (Haloperidol 5 Mg Tablet) 5 mg PO DAILY [facility] Last Admin: 06/23/23 10:32 Dose: 5 mg Hydroxyzine HCl (Hydroxyzine Hcl 25 Mg Tablet) 25 mg PO Q6H PRN PRN Reason: Anxiety Magnesium Hydroxide (Milk Of Magnesia 30 Ml Oral.Susp) 30 ml PO DAILY PRN PRN Reason: Constipation Propranolol HCl (Propranolol Hcl 10 Mg Tablet) 10 mg PO BID [facility]; Protocol Last Admin: 06/23/23 20:16 Dose: 10 mg Trazodone HCl (Trazodone Hcl 50 Mg Tablet) 50 mg PO BEDTIME PRN PRN Reason: Insomnia Ziprasidone (Ziprasidone Mesylate 20 Mg Vial) 20 mg IM DAILY PRN PRN Reason: if pt refuses po abilify Osman Allergies Allergies Allergy/AdvReac Type Severity Reaction Status Date / Time aspirin Allergy Hives Verified 05/31/23 16:21 Assessment & Plan Assessment & Plan (1) Schizoaffective disorder: Status: Acute Code(s): F25.9 - Schizoaffective disorder, unspecified Plan The patient is an elderly female, with a long history of psychosis, followed by [facility] through VNA and intensive case management, referred for noncompliance of treatment with exacerbation of psychotic symptoms elicited by disorganized behavior irritability and agitation. Plan 1. Gather collateral information. 2. As per court order we will continue Abilify 30 mg p.o. q.a.m. with backup Geodon IM if the patient refuses. 3. Continue medical workout. 4. Reassessment with results. 5. Filing for Section 7 and 8. We will have a court hearing next week. 06/09: Encourage adherence. Continue current treatment plan. 06/10: Continue current plan of care. 06/11 add haldol 5mg po daily per leesa, back up IM Haldol 06/12 continue tx. 06/13 add cogentin 1mg po daily. 06/14 continue tx. 06/15 continue tx. 06/16 continue current treatment plan 06/17 continue current treatment plan (continues to refuse Depakote) 06/18 no change in tx plan 06/19 pt to receive MARTINO Abilify Maintena 400mg IM q monthly. continue oral as there is 2 week delay onset. continue haldol and cogentin. 06/20 continue tx. 06/21 continue tx. 06/23/23 Continue regime and plan of care 06/24/23 Continue regime and plan of care Reason for continued inpatient stay Substantial Risk for: rapid decompensation Time Spent With Patient Time: Total time managing care of this patient today ____ minutes.
[2023-06-24] MEDS: Benztropine Mesylate 1 MG TABLET PO (08:50)
[2023-06-24] MEDS: HaloperidoL 5 MG TABLET PO (08:50)
[2023-06-24] MEDS: ARIPiprazole 30 MG TABLET PO (08:51)
[2023-06-24] MEDS: Propranolol HCL 10 MG TABLET PO ×2 (08:51→20:36)
[2023-06-24 09:39] VITALS: BP 133/60; PULSE 78; RESP 18; TEMP 36.7; O2SAT 97
[2023-06-24 19:52] VITALS: BP 117/56; PULSE 72; TEMP 36.2; O2SAT 96
[2023-06-25 07:50] VITALS: BP 125/56; PULSE 66; RESP 18; TEMP 36.1; O2SAT 99
[2023-06-25] MEDS: Benztropine Mesylate 1 MG TABLET PO (08:23)
[2023-06-25] MEDS: Propranolol HCL 10 MG TABLET PO ×2 (08:23→19:57)
[2023-06-25] MEDS: HaloperidoL 5 MG TABLET PO (08:23)
[2023-06-25] MEDS: ARIPiprazole 30 MG TABLET PO (08:25)
--- NOTE | 2023-06-25 14:07 | HO.PSYCHPN ---
Subjective Subjective Date of Service: 06/25/23 Reason For Visit: Schizoaffective disorder Subjective Notes: Section 7 Interim History: Pt reports she is doing well. She has been sleeping through the night. She has attended more groups and seems to enjoy socializing with peers. Pt denies SI/HI. Pt appears less paranoid, less guarded. She continues to have no insight into mental illness and need to continue tx. She does not think she is better due to psychiatric medications. She reluctantly agreed to be referred to psychiatric services stating they will tell me I don't need them, I am not mentally ill. No behavioral concerns. Review of Systems Review of Systems Patient has no acute medical complaints at this time Yes all other systems are reviewed and are negative Mental Status Exam Mental Status Exam Narrative: Appearance: casually groomed, fair hygiene, in NAD Behavior: cooperative Psychomotor: no agitation or retardation noted Speech: clear, normal rate/rhythm/volume, spontaneous TP: linear TC: some paranoid ideas of peers doing spells, no insight into mental illness or need for treatment Mood: good Affect congruent, SI: none HI: none VH/AH: less talking to someone who is not there Delusions: less paranoid delusions Insight/judgment: poor x 2 Alert, oriented x 3. Diagnostics Vital Signs (24Hr): Vital Signs - 24 hr 06/24/23 19:52 06/25/23 07:50 Temperature 97.1 F 96.9 F Pulse Rate 72 66 Respiratory Rate 18 Blood Pressure 117/56 L 125/56 L Pulse Oximetry 96 99 Oxygen Delivery Method Room Air Room Air BMI result Body Mass Index 27.8 Labs 06/01/23 08:07 Medications Medications Current Medications Acetaminophen (Acetaminophen 325 Mg Tablet) 650 mg PO Q6H PRN PRN Reason: Headache/Pain Mild Scale (1-3) Last Admin: 06/18/23 04:57 Dose: 650 mg Al Hydroxide/Mg Hydroxide (Magnesium Hydrox/Alum Hydrox 30 Ml Oral.Susp) 30 ml PO Q6H PRN PRN Reason: Heartburn/Nausea Amlodipine Besylate (Amlodipine Besylate 2.5 Mg Tablet) 2.5 mg PO DAILY [facility]; Protocol Last Admin: 06/25/23 08:26 Dose: Not Given Aripiprazole (Aripiprazole 30 Mg Tablet) 30 mg PO DAILY [facility] Last Admin: 06/25/23 08:25 Dose: 30 mg Aripiprazole (Aripiprazole Er 400 Mg Suser.Syr) 400 mg IM Q28D [facility] Last Admin: 06/19/23 13:32 Dose: 400 mg Benztropine Mesylate (Benztropine Mesylate 1 Mg Tablet) 1 mg PO DAILY [facility] Last Admin: 06/25/23 08:23 Dose: 1 mg Divalproex Sodium (Divalproex Sodium Sprinkles 125 Mg Cap.Spr) 500 mg PO BEDTIME [facility] Last Admin: 06/24/23 20:38 Dose: Not Given Haloperidol (Haloperidol 5 Mg Tablet) 5 mg PO DAILY [facility] Last Admin: 06/25/23 08:23 Dose: 5 mg Hydroxyzine HCl (Hydroxyzine Hcl 25 Mg Tablet) 25 mg PO Q6H PRN PRN Reason: Anxiety Magnesium Hydroxide (Milk Of Magnesia 30 Ml Oral.Susp) 30 ml PO DAILY PRN PRN Reason: Constipation Propranolol HCl (Propranolol Hcl 10 Mg Tablet) 10 mg PO BID [facility]; Protocol Last Admin: 06/25/23 08:23 Dose: 10 mg Trazodone HCl (Trazodone Hcl 50 Mg Tablet) 50 mg PO BEDTIME PRN PRN Reason: Insomnia Ziprasidone (Ziprasidone Mesylate 20 Mg Vial) 20 mg IM DAILY PRN PRN Reason: if pt refuses po daniela Brewer Allergies Allergies Allergy/AdvReac Type Severity Reaction Status Date / Time aspirin Allergy Hives Verified 05/31/23 16:21 Assessment & Plan Assessment & Plan (1) Schizoaffective disorder: Status: Acute Code(s): F25.9 - Schizoaffective disorder, unspecified Plan The patient is an elderly female, with a long history of psychosis, followed by [facility] through VNA and intensive case management, referred for noncompliance of treatment with exacerbation of psychotic symptoms elicited by disorganized behavior irritability and agitation. Plan 06/09: Encourage adherence. Continue current treatment plan. 06/10: Continue current plan of care. 06/11 add haldol 5mg po daily per leesa, back up IM Haldol 06/12 continue tx. 06/13 add cogentin 1mg po daily. 06/14 continue tx. 06/15 continue tx. 06/16 continue current treatment plan 06/17 continue current treatment plan (continues to refuse Depakote) 06/18 no change in tx plan 06/19 pt to receive MARTINO Abilify Maintena 400mg IM q monthly. continue oral as there is 2 week delay onset. continue haldol and cogentin. 06/20 continue tx. 06/21 continue tx. 06/23/23 Continue regime and plan of care 06/24/23 Continue regime and plan of care 06/25 continue tx. Pt appears less paranoid. No aggression towards self or others. Reason for continued inpatient stay Substantial Risk for: inability to function Time Spent With Patient Time: Total time managing care of this patient today ____ minutes.
[2023-06-25 19:54] VITALS: BP 143/65; PULSE 70; TEMP 36.3; O2SAT 98
[2023-06-26 07:40] VITALS: BP 118/58; PULSE 62; RESP 18; TEMP 36.1; O2SAT 100
[2023-06-26] MEDS: ARIPiprazole 30 MG TABLET PO (08:15)
[2023-06-26] MEDS: Benztropine Mesylate 1 MG TABLET PO (08:15)
[2023-06-26] MEDS: HaloperidoL 5 MG TABLET PO (08:16)
[2023-06-26] MEDS: Propranolol HCL 10 MG TABLET PO ×2 (08:16→19:43)
--- NOTE | 2023-06-26 09:07 | P.PNPSI_ITS ---
Subjective Subjective Date of Service: 06/26/23 Reason For Visit: Schizoaffective disorder Subjective Notes: Section 7 Interim History: Pt presents as more guarded but still with no insight into mental illness and need for treatment. Pt states she will go to appointment with psychiatrist but she is certain that she will be told that she does not have a mental illness nor that she needs medications. She denies SI/HI. She has been eating and sleeping well. Medication Compliance: Yes Review of Systems Review of Systems Patient has no acute medical complaints at this time Yes all other systems are reviewed and are negative Mental Status Exam Mental Status Exam Narrative: Appearance: casually groomed, fair hygiene, in NAD Behavior: cooperative Psychomotor: no agitation or retardation noted Speech: clear, normal rate/rhythm/volume, spontaneous TP: linear TC: some paranoid ideas of peers doing spells, no insight into mental illness or need for treatment Mood: good Affect congruent, SI: none HI: none VH/AH: less talking to someone who is not there Delusions: less paranoid delusions Insight/judgment: poor x 2 Alert, oriented x 3. Diagnostics Vital Signs (24Hr): Vital Signs - 24 hr 06/25/23 19:54 06/26/23 07:40 Temperature 97.4 F 96.9 F Pulse Rate 70 62 Respiratory Rate 18 Blood Pressure 143/65 H 118/58 L Pulse Oximetry 98 100 Oxygen Delivery Method Room Air Room Air BMI result Body Mass Index 27.8 Labs 06/01/23 08:07 Medications Medications Current Medications Acetaminophen (Acetaminophen 325 Mg Tablet) 650 mg PO Q6H PRN PRN Reason: Headache/Pain Mild Scale (1-3) Last Admin: 06/18/23 04:57 Dose: 650 mg Al Hydroxide/Mg Hydroxide (Magnesium Hydrox/Alum Hydrox 30 Ml Oral.Susp) 30 ml PO Q6H PRN PRN Reason: Heartburn/Nausea Amlodipine Besylate (Amlodipine Besylate 2.5 Mg Tablet) 2.5 mg PO DAILY [facility]; Protocol Last Admin: 06/26/23 08:18 Dose: Not Given Aripiprazole (Aripiprazole 30 Mg Tablet) 30 mg PO DAILY [facility] Last Admin: 06/26/23 08:15 Dose: 30 mg Aripiprazole (Aripiprazole Er 400 Mg Suser.Syr) 400 mg IM Q28D [facility] Last Admin: 06/19/23 13:32 Dose: 400 mg Benztropine Mesylate (Benztropine Mesylate 1 Mg Tablet) 1 mg PO DAILY [facility] Last Admin: 06/26/23 08:15 Dose: 1 mg Divalproex Sodium (Divalproex Sodium Sprinkles 125 Mg ) 500 mg PO BEDTIME [facility] Last Admin: 06/25/23 20:19 Dose: Not Given Haloperidol (Haloperidol 5 Mg Tablet) 5 mg PO DAILY [facility] Last Admin: 06/26/23 08:16 Dose: 5 mg Hydroxyzine HCl (Hydroxyzine Hcl 25 Mg Tablet) 25 mg PO Q6H PRN PRN Reason: Anxiety Magnesium Hydroxide (Milk Of Magnesia 30 Ml Oral.Susp) 30 ml PO DAILY PRN PRN Reason: Constipation Propranolol HCl (Propranolol Hcl 10 Mg Tablet) 10 mg PO BID [facility]; Protocol Last Admin: 06/26/23 08:16 Dose: 10 mg Trazodone HCl (Trazodone Hcl 50 Mg Tablet) 50 mg PO BEDTIME PRN PRN Reason: Insomnia Ziprasidone (Ziprasidone Mesylate 20 Mg Vial) 20 mg IM DAILY PRN PRN Reason: if pt refuses po abilify Osman Allergies Allergies Allergy/AdvReac Type Severity Reaction Status Date / Time aspirin Allergy Hives Verified 05/31/23 16:21 Assessment & Plan Assessment & Plan (1) Schizoaffective disorder: Status: Acute Code(s): F25.9 - Schizoaffective disorder, unspecified Plan The patient is an elderly female, with a long history of psychosis, followed by [facility] through VNA and intensive case management, referred for noncompliance of treatment with exacerbation of psychotic symptoms elicited by disorganized behavior irritability and agitation. Plan 06/09: Encourage adherence. Continue current treatment plan. 06/10: Continue current plan of care. 06/11 add haldol 5mg po daily per leesa, back up IM Haldol 06/12 continue tx. 06/13 add cogentin 1mg po daily. 06/14 continue tx. 06/15 continue tx. 06/16 continue current treatment plan 06/17 continue current treatment plan (continues to refuse Depakote) 06/18 no change in tx plan 06/19 pt to receive MARTINO Abilify Maintena 400mg IM q monthly. continue oral as there is 2 week delay onset. continue haldol and cogentin. 06/20 continue tx. 06/21 continue tx. 06/23/23 Continue regime and plan of care 06/24/23 Continue regime and plan of care 06/25 continue tx. Pt appears less paranoid. No aggression towards self or others. 06/26 continue tx. Reason for continued inpatient stay Substantial Risk for: inability to function Time Spent With Patient Time: Total time managing care of this patient today ____ minutes.
[2023-06-26 19:30] VITALS: BP 146/56; PULSE 70; RESP 18; TEMP 36.1; O2SAT 99
[2023-06-27] MEDS: HaloperidoL 5 MG TABLET PO (08:42)
[2023-06-27] MEDS: Benztropine Mesylate 1 MG TABLET PO (08:42)
[2023-06-27] MEDS: Propranolol HCL 10 MG TABLET PO ×2 (08:42→20:05)
[2023-06-27] MEDS: ARIPiprazole 30 MG TABLET PO (08:42)
[2023-06-27 09:38] VITALS: BP 121/56; PULSE 70; RESP 16; TEMP 35.9; O2SAT 98
[2023-06-27 21:02] VITALS: BP 124/60; PULSE 60; RESP 17; TEMP 36.1; O2SAT 98
[2023-06-28 08:40] VITALS: BP 134/60; PULSE 71; RESP 18; TEMP 36.1; O2SAT 98
[2023-06-28] MEDS: Benztropine Mesylate 1 MG TABLET PO (08:45)
[2023-06-28] MEDS: HaloperidoL 5 MG TABLET PO (08:46)
[2023-06-28] MEDS: Propranolol HCL 10 MG TABLET PO ×2 (08:47→20:16)
[2023-06-28] MEDS: ARIPiprazole 30 MG TABLET PO (08:47)
--- NOTE | 2023-06-28 10:39 | HO.PSYCHPN ---
Subjective Subjective Date of Service: 06/27/23 Reason For Visit: Schizoaffective disorder Subjective Notes: Section 7 Interim History: Pt sleeping most of the night. She does report light sleep and getting up when staff checks on her [id number]. She denies SI/HI. She is more pleasant and visible on the unit. She attends groups and appears to enjoy them. She lack insight into her mental illness and continues to report that she does not need psychotropic medications and her osman's is not valid. She does tell this senior grant writer that she will go to appointment but is sure psychiatrist will tell her she does not have a mental illness. Review of Systems Review of Systems Patient has no acute medical complaints at this time Yes all other systems are reviewed and are negative Mental Status Exam Mental Status Exam Narrative: Appearance: casually groomed, fair hygiene, in NAD Behavior: cooperative Psychomotor: no agitation or retardation noted Speech: clear, normal rate/rhythm/volume, spontaneous TP: linear TC: some paranoid ideas of peers doing spells, no insight into mental illness or need for treatment Mood: good Affect congruent, SI: none HI: none VH/AH: less talking to someone who is not there Delusions: less paranoid delusions Insight/judgment: poor x 2 Alert, oriented x 3. Diagnostics Vital Signs (24Hr): Vital Signs - 24 hr 06/27/23 21:02 Temperature 97 F Pulse Rate 60 Respiratory Rate 17 Blood Pressure 124/60 Pulse Oximetry 98 Oxygen Delivery Method Room Air BMI result Body Mass Index 27.8 Labs 06/01/23 08:07 Medications Medications Current Medications Acetaminophen (Acetaminophen 325 Mg Tablet) 650 mg PO Q6H PRN PRN Reason: Headache/Pain Mild Scale (1-3) Last Admin: 06/18/23 04:57 Dose: 650 mg Al Hydroxide/Mg Hydroxide (Magnesium Hydrox/Alum Hydrox 30 Ml Oral.Susp) 30 ml PO Q6H PRN PRN Reason: Heartburn/Nausea Amlodipine Besylate (Amlodipine Besylate 2.5 Mg Tablet) 2.5 mg PO DAILY [facility]; Protocol Last Admin: 06/28/23 08:49 Dose: Not Given Aripiprazole (Aripiprazole 30 Mg Tablet) 30 mg PO DAILY [facility] Last Admin: 06/28/23 08:47 Dose: 30 mg Aripiprazole (Aripiprazole Er 400 Mg Suser.Syr) 400 mg IM Q28D [facility] Last Admin: 06/19/23 13:32 Dose: 400 mg Benztropine Mesylate (Benztropine Mesylate 1 Mg Tablet) 1 mg PO DAILY [facility] Last Admin: 06/28/23 08:45 Dose: 1 mg Divalproex Sodium (Divalproex Sodium Sprinkles 125 Mg ) 500 mg PO BEDTIME [facility] Last Admin: 06/27/23 20:06 Dose: Not Given Haloperidol (Haloperidol 5 Mg Tablet) 5 mg PO DAILY [facility] Last Admin: 06/28/23 08:46 Dose: 5 mg Hydroxyzine HCl (Hydroxyzine Hcl 25 Mg Tablet) 25 mg PO Q6H PRN PRN Reason: Anxiety Magnesium Hydroxide (Milk Of Magnesia 30 Ml Oral.Susp) 30 ml PO DAILY PRN PRN Reason: Constipation Propranolol HCl (Propranolol Hcl 10 Mg Tablet) 10 mg PO BID [facility]; Protocol Last Admin: 06/28/23 08:47 Dose: 10 mg Trazodone HCl (Trazodone Hcl 50 Mg Tablet) 50 mg PO BEDTIME PRN PRN Reason: Insomnia Ziprasidone (Ziprasidone Mesylate 20 Mg Vial) 20 mg IM DAILY PRN PRN Reason: if pt refuses po abilify Osman Allergies Allergies Allergy/AdvReac Type Severity Reaction Status Date / Time aspirin Allergy Hives Verified 05/31/23 16:21 Assessment & Plan Assessment & Plan (1) Schizoaffective disorder: Status: Acute Code(s): F25.9 - Schizoaffective disorder, unspecified Plan The patient is an elderly female, with a long history of psychosis, followed by [facility] through VNA and intensive case management, referred for noncompliance of treatment with exacerbation of psychotic symptoms elicited by disorganized behavior irritability and agitation. Plan 06/09: Encourage adherence. Continue current treatment plan. 06/10: Continue current plan of care. 06/11 add haldol 5mg po daily per leesa, back up IM Haldol 06/12 continue tx. 06/13 add cogentin 1mg po daily. 06/14 continue tx. 06/15 continue tx. 06/16 continue current treatment plan 06/17 continue current treatment plan (continues to refuse Depakote) 06/18 no change in tx plan 06/19 pt to receive [facility]INO Abilify Maintena 400mg IM q monthly. continue oral as there is 2 week delay onset. continue haldol and cogentin. 06/20 continue tx. 06/21 continue tx. 06/23/23 Continue regime and plan of care 06/24/23 Continue regime and plan of care 06/25 continue tx. Pt appears less paranoid. No aggression towards self or others. 06/26 continue tx. 06/27 continue tx. Reason for continued inpatient stay Substantial Risk for: inability to function Time Spent With Patient Time: Total time managing care of this patient today ____ minutes.
--- NOTE | 2023-06-28 10:47 | HO.PSYCHPN ---
Subjective Subjective Date of Service: 06/28/23 Reason For Visit: Schizoaffective disorder Subjective Notes: Section 7 Healthcare Proxy: Yes Interim History: Pt sleeping most of the night. She continues to present as less paranoid. She denies SI/HI. No aggression towards self or others. No insight into mental illness. Review of Systems Review of Systems Patient has no acute medical complaints at this time Yes all other systems are reviewed and are negative Mental Status Exam Mental Status Exam Narrative: Appearance: casually groomed, fair hygiene, in NAD Behavior: cooperative Psychomotor: no agitation or retardation noted Speech: clear, normal rate/rhythm/volume, spontaneous TP: linear TC: some paranoid ideas of peers doing spells, no insight into mental illness or need for treatment Mood: good Affect congruent, SI: none HI: none VH/AH: less talking to someone who is not there Delusions: less paranoid delusions Insight/judgment: poor x 2 Alert, oriented x 3. Diagnostics Vital Signs (24Hr): Vital Signs - 24 hr 06/27/23 21:02 Temperature 97 F Pulse Rate 60 Respiratory Rate 17 Blood Pressure 124/60 Pulse Oximetry 98 Oxygen Delivery Method Room Air BMI result Body Mass Index 27.8 Labs 06/01/23 08:07 Medications Medications Current Medications Acetaminophen (Acetaminophen 325 Mg Tablet) 650 mg PO Q6H PRN PRN Reason: Headache/Pain Mild Scale (1-3) Last Admin: 06/18/23 04:57 Dose: 650 mg Al Hydroxide/Mg Hydroxide (Magnesium Hydrox/Alum Hydrox 30 Ml Oral.Susp) 30 ml PO Q6H PRN PRN Reason: Heartburn/Nausea Amlodipine Besylate (Amlodipine Besylate 2.5 Mg Tablet) 2.5 mg PO DAILY [facility]; Protocol Last Admin: 06/28/23 08:49 Dose: Not Given Aripiprazole (Aripiprazole 30 Mg Tablet) 30 mg PO DAILY [facility] Last Admin: 06/28/23 08:47 Dose: 30 mg Aripiprazole (Aripiprazole Er 400 Mg Suser.Syr) 400 mg IM Q28D [facility] Last Admin: 06/19/23 13:32 Dose: 400 mg Benztropine Mesylate (Benztropine Mesylate 1 Mg Tablet) 1 mg PO DAILY [facility] Last Admin: 06/28/23 08:45 Dose: 1 mg Divalproex Sodium (Divalproex Sodium Sprinkles 125 Mg Cap.Spr) 500 mg PO BEDTIME [facility] Last Admin: 06/27/23 20:06 Dose: Not Given Haloperidol (Haloperidol 5 Mg Tablet) 5 mg PO DAILY [facility] Last Admin: 06/28/23 08:46 Dose: 5 mg Hydroxyzine HCl (Hydroxyzine Hcl 25 Mg Tablet) 25 mg PO Q6H PRN PRN Reason: Anxiety Magnesium Hydroxide (Milk Of Magnesia 30 Ml Oral.Susp) 30 ml PO DAILY PRN PRN Reason: Constipation Propranolol HCl (Propranolol Hcl 10 Mg Tablet) 10 mg PO BID [facility]; Protocol Last Admin: 06/28/23 08:47 Dose: 10 mg Trazodone HCl (Trazodone Hcl 50 Mg Tablet) 50 mg PO BEDTIME PRN PRN Reason: Insomnia Ziprasidone (Ziprasidone Mesylate 20 Mg Vial) 20 mg IM DAILY PRN PRN Reason: if pt refuses po abilifvera Brewer Allergies Allergies Allergy/AdvReac Type Severity Reaction Status Date / Time aspirin Allergy Hives Verified 05/31/23 16:21 Assessment & Plan Assessment & Plan (1) Schizoaffective disorder: Status: Acute Code(s): F25.9 - Schizoaffective disorder, unspecified Plan The patient is an elderly female, with a long history of psychosis, followed by [facility] through VNA and intensive case management, referred for noncompliance of treatment with exacerbation of psychotic symptoms elicited by disorganized behavior irritability and agitation. Plan 06/09: Encourage adherence. Continue current treatment plan. 06/10: Continue current plan of care. 06/11 add haldol 5mg po daily per leesa, back up IM Haldol 06/12 continue tx. 06/13 add cogentin 1mg po daily. 06/14 continue tx. 06/15 continue tx. 06/16 continue current treatment plan 06/17 continue current treatment plan (continues to refuse Depakote) 06/18 no change in tx plan 06/19 pt to receive MARTINO Abilify Maintena 400mg IM q monthly. continue oral as there is 2 week delay onset. continue haldol and cogentin. 06/20 continue tx. 06/21 continue tx. 06/23/23 Continue regime and plan of care 06/24/23 Continue regime and plan of care 06/25 continue tx. Pt appears less paranoid. No aggression towards self or others. 06/26 continue tx. 06/27 continue tx. 06/28 continue tx. Reason for continued inpatient stay Substantial Risk for: inability to function Time Spent With Patient Time: Total time managing care of this patient today ____ minutes.
[2023-06-28] MEDS: Acetaminophen 325 MG TABLET 650 MG PO (20:23)
[2023-06-28 21:52] VITALS: BP 185/74; PULSE 74; RESP 16; TEMP 36.6; O2SAT 98
[2023-06-28 22:00] VITALS: BP 133/74; PULSE 73; RESP 16
[2023-06-29 07:45] VITALS: BP 147/60; PULSE 65; RESP 18; TEMP 36.3; O2SAT 98
[2023-06-29] MEDS: Propranolol HCL 10 MG TABLET PO ×2 (08:25→19:45)
[2023-06-29] MEDS: HaloperidoL 5 MG TABLET PO (08:25)
[2023-06-29] MEDS: Benztropine Mesylate 1 MG TABLET PO (08:25)
[2023-06-29] MEDS: ARIPiprazole 30 MG TABLET PO (08:26)
--- NOTE | 2023-06-29 15:53 | P.PNPSI_ITS ---
Subjective Subjective Date of Service: 06/29/23 Reason For Visit: Schizoaffective disorder Subjective Notes: Section 7 and Section 8 Interim History: The nursing staff reported that she had been refused her weight assessment. She has been attending to her ADL less and she was able to take her medications. The social insurance specialist reported yet she gets more engageable and [facility] says is contacting her for coordination of care. On interview the patient denies new symptoms pleasant and cooperative. Mental Status Exam Mental Status Exam Patient Appearance: Appropriate Patient Orientation: Person and Situation Level of Consciousness: Awake and Appropriate Patient Behavior: Guarded and Passive Mood Description: Withdrawn Affect Description: Constricted Patient Cognition Impaired: Yes Ability to Follow Directions: Good Speech Pattern: Clear Hallucinations: None Delusions: Paranoid Ideation Thought Process: Distracted and Goal Oriented Thought Content: positive for Kevin, positive for Circumstantial and positive for Poverty of Content Judgement: Fair Diagnostics Vital Signs (24Hr): Vital Signs - 24 hr 06/28/23 21:52 06/28/23 22:00 06/29/23 07:45 Temperature 98 F 97.4 F Pulse Rate 74 73 65 Respiratory Rate 16 16 18 Blood Pressure 185/74 H 133/74 147/60 H Pulse Oximetry 98 98 Oxygen Delivery Method Room Air Room Air BMI result Body Mass Index 27.8 Labs 06/01/23 08:07 Medications Medications Current Medications Acetaminophen (Acetaminophen 325 Mg Tablet) 650 mg PO Q6H PRN PRN Reason: Headache/Pain Mild Scale (1-3) Last Admin: 06/28/23 20:23 Dose: 650 mg Al Hydroxide/Mg Hydroxide (Magnesium Hydrox/Alum Hydrox 30 Ml Oral.Susp) 30 ml PO Q6H PRN PRN Reason: Heartburn/Nausea Amlodipine Besylate (Amlodipine Besylate 2.5 Mg Tablet) 2.5 mg PO DAILY [facility]; Protocol Last Admin: 06/29/23 08:26 Dose: Not Given Aripiprazole (Aripiprazole 30 Mg Tablet) 30 mg PO DAILY [facility] Last Admin: 06/29/23 08:26 Dose: 30 mg Aripiprazole (Aripiprazole Er 400 Mg Suser.Syr) 400 mg IM Q28D [facility] Last Admin: 06/19/23 13:32 Dose: 400 mg Benztropine Mesylate (Benztropine Mesylate 1 Mg Tablet) 1 mg PO DAILY [facility] Last Admin: 06/29/23 08:25 Dose: 1 mg Divalproex Sodium (Divalproex Sodium Sprinkles 125 Mg ) 500 mg PO BEDTIME [facility] Last Admin: 06/28/23 22:02 Dose: Not Given Haloperidol (Haloperidol 5 Mg Tablet) 5 mg PO DAILY [facility] Last Admin: 06/29/23 08:25 Dose: 5 mg Hydroxyzine HCl (Hydroxyzine Hcl 25 Mg Tablet) 25 mg PO Q6H PRN PRN Reason: Anxiety Magnesium Hydroxide (Milk Of Magnesia 30 Ml Oral.Susp) 30 ml PO DAILY PRN PRN Reason: Constipation Propranolol HCl (Propranolol Hcl 10 Mg Tablet) 10 mg PO BID [facility]; Protocol Last Admin: 06/29/23 08:25 Dose: 10 mg Trazodone HCl (Trazodone Hcl 50 Mg Tablet) 50 mg PO BEDTIME PRN PRN Reason: Insomnia Ziprasidone (Ziprasidone Mesylate 20 Mg Vial) 20 mg IM DAILY PRN PRN Reason: if pt refuses po abilify Osman Allergies Allergies Allergy/AdvReac Type Severity Reaction Status Date / Time aspirin Allergy Hives Verified 05/31/23 16:21 Assessment & Plan Assessment & Plan (1) Schizoaffective disorder: Status: Acute Code(s): F25.9 - Schizoaffective disorder, unspecified Plan The patient is an elderly female, with a long history of psychosis, followed by [facility] through VNA and intensive case management, referred for noncompliance of treatment with exacerbation of psychotic symptoms elicited by disorganized behavior irritability and agitation. Plan 06/09: Encourage adherence. Continue current treatment plan. 06/10: Continue current plan of care. 06/11 add haldol 5mg po daily per leesa, back up IM Haldol 06/12 continue tx. 06/13 add cogentin 1mg po daily. 06/14 continue tx. 06/15 continue tx. 06/16 continue current treatment plan 06/17 continue current treatment plan (continues to refuse Depakote) 06/18 no change in tx plan 06/19 pt to receive MARTINO Abilify Maintena 400mg IM q monthly. continue oral as there is 2 week delay onset. continue haldol and cogentin. 06/20 continue tx. 06/21 continue tx. 06/23/23 Continue regime and plan of care 06/24/23 Continue regime and plan of care 06/25 continue tx. Pt appears less paranoid. No aggression towards self or others. 06/26 continue tx. 06/27 continue tx. 06/28 continue tx. 06/29 continue same treatment. Reason for continued inpatient stay Substantial Risk for: inability to function, rapid decompensation and med/psych decompensation Time Spent With Patient Time: Total time managing care of this patient today ___20_ minutes.
[2023-06-29] MEDS: Acetaminophen 325 MG TABLET 650 MG PO (19:45)
[2023-06-29 22:00] VITALS: BP 125/58; PULSE 63; RESP 16; TEMP 35.9; O2SAT 95
[2023-06-30 09:00] VITALS: BP 138/64; PULSE 63; RESP 18; TEMP 35.8; O2SAT 98
[2023-06-30] MEDS: ARIPiprazole 30 MG TABLET PO (09:14)
[2023-06-30] MEDS: Propranolol HCL 10 MG TABLET PO (09:15)
[2023-06-30] MEDS: HaloperidoL 5 MG TABLET PO (09:15)
[2023-06-30] MEDS: Benztropine Mesylate 1 MG TABLET PO (09:15)
[2023-06-30 18:00] VITALS: BP 128/58; PULSE 65; RESP 16; TEMP 37; O2SAT 95
--- NOTE | 2023-06-30 20:04 | P.PNPSI_ITS ---
Subjective Subjective Date of Service: 06/30/23 Reason For Visit: Schizoaffective disorder Subjective Notes: Section 7 Interim History: Pt sleeping through the night. She is pleasant but somewhat suspicious and guarded. she denies SI/HI. less paranoia. no insight into mental illness. Review of Systems Review of Systems Patient has no acute medical complaints at this time Yes all other systems are reviewed and are negative Mental Status Exam Mental Status Exam Narrative: Appearance: casually groomed, fair hygiene, in NAD Behavior: cooperative Psychomotor: no agitation or retardation noted Speech: clear, normal rate/rhythm/volume, spontaneous TP: linear TC: some paranoid ideas of peers doing spells, no insight into mental illness or need for treatment Mood: good Affect congruent, SI: none HI: none VH/AH: less talking to someone who is not there Delusions: less paranoid delusions Insight/judgment: poor x 2 Alert, oriented x 3. Diagnostics Vital Signs (24Hr): Vital Signs - 24 hr 06/29/23 22:00 06/30/23 09:00 Temperature 96.7 F L 96.5 F L Pulse Rate 63 63 Respiratory Rate 16 18 Blood Pressure 125/58 L 138/64 Pulse Oximetry 95 98 Oxygen Delivery Method Room Air Room Air BMI result Body Mass Index 27.8 Labs 06/01/23 08:07 Medications Medications Current Medications Acetaminophen (Acetaminophen 325 Mg Tablet) 650 mg PO Q6H PRN PRN Reason: Headache/Pain Mild Scale (1-3) Last Admin: 06/29/23 19:45 Dose: 650 mg Al Hydroxide/Mg Hydroxide (Magnesium Hydrox/Alum Hydrox 30 Ml Oral.Susp) 30 ml PO Q6H PRN PRN Reason: Heartburn/Nausea Amlodipine Besylate (Amlodipine Besylate 2.5 Mg Tablet) 2.5 mg PO DAILY [facility]; Protocol Last Admin: 06/30/23 09:16 Dose: Not Given Aripiprazole (Aripiprazole 30 Mg Tablet) 30 mg PO DAILY [facility] Last Admin: 06/30/23 09:14 Dose: 30 mg Aripiprazole (Aripiprazole Er 400 Mg Suser.Syr) 400 mg IM Q28D [facility] Last Admin: 06/19/23 13:32 Dose: 400 mg Benztropine Mesylate (Benztropine Mesylate 1 Mg Tablet) 1 mg PO DAILY [facility] Last Admin: 06/30/23 09:15 Dose: 1 mg Divalproex Sodium (Divalproex Sodium Sprinkles 125 Mg ) 500 mg PO BEDTIME [facility] Last Admin: 06/29/23 22:41 Dose: Not Given Haloperidol (Haloperidol 5 Mg Tablet) 5 mg PO DAILY [facility] Last Admin: 06/30/23 09:15 Dose: 5 mg Hydroxyzine HCl (Hydroxyzine Hcl 25 Mg Tablet) 25 mg PO Q6H PRN PRN Reason: Anxiety Magnesium Hydroxide (Milk Of Magnesia 30 Ml Oral.Susp) 30 ml PO DAILY PRN PRN Reason: Constipation Propranolol HCl (Propranolol Hcl 10 Mg Tablet) 10 mg PO BID [facility]; Protocol Last Admin: 06/30/23 09:15 Dose: 10 mg Trazodone HCl (Trazodone Hcl 50 Mg Tablet) 50 mg PO BEDTIME PRN PRN Reason: Insomnia Ziprasidone (Ziprasidone Mesylate 20 Mg Vial) 20 mg IM DAILY PRN PRN Reason: if pt refuses po abilify Osman Allergies Allergies Allergy/AdvReac Type Severity Reaction Status Date / Time aspirin Allergy Hives Verified 05/31/23 16:21 Assessment & Plan Assessment & Plan (1) Schizoaffective disorder: Status: Acute Code(s): F25.9 - Schizoaffective disorder, unspecified Plan The patient is an elderly female, with a long history of psychosis, followed by [facility] through VNA and intensive case management, referred for noncompliance of treatment with exacerbation of psychotic symptoms elicited by disorganized behavior irritability and agitation. Plan 06/09: Encourage adherence. Continue current treatment plan. 06/10: Continue current plan of care. 06/11 add haldol 5mg po daily per leesa, back up IM Haldol 06/12 continue tx. 06/13 add cogentin 1mg po daily. 06/14 continue tx. 06/15 continue tx. 06/16 continue current treatment plan 06/17 continue current treatment plan (continues to refuse Depakote) 06/18 no change in tx plan 06/19 pt to receive MARTINO Abilify Maintena 400mg IM q monthly. continue oral as there is 2 week delay onset. continue haldol and cogentin. 06/20 continue tx. 06/21 continue tx. 06/23/23 Continue regime and plan of care 06/24/23 Continue regime and plan of care 06/25 continue tx. Pt appears less paranoid. No aggression towards self or others. 06/26 continue tx. 06/27 continue tx. 06/28 continue tx. 06/29 continue same treatment. 06/30 continue tx. Reason for continued inpatient stay Substantial Risk for: inability to function Time Spent With Patient Time: Total time managing care of this patient today ____ minutes.
[2023-06-30] MEDS: Acetaminophen 325 MG TABLET 650 MG PO (20:45)
[2023-07-01 08:00] VITALS: BP 127/55; PULSE 68; RESP 18; TEMP 36.7; O2SAT 98
[2023-07-01] MEDS: Benztropine Mesylate 1 MG TABLET PO (08:26)
[2023-07-01] MEDS: ARIPiprazole 30 MG TABLET PO (08:27)
[2023-07-01] MEDS: HaloperidoL 5 MG TABLET PO (08:28)
[2023-07-01] MEDS: Propranolol HCL 10 MG TABLET PO (08:28)
--- NOTE | 2023-07-01 14:56 | PC.NURSE ---
Edema noted to BLE
[2023-07-01] MEDS: Acetaminophen 325 MG TABLET 650 MG PO (20:05)
--- NOTE | 2023-07-01 20:17 | P.PNPSI_ITS ---
Subjective Subjective Date of Service: 07/01/23 Reason For Visit: Schizoaffective disorder Interim History: Pt sleeping through the night. She is pleasant but somewhat suspicious and guarded. she denies SI/HI. less paranoia. no insight into mental illness. Review of Systems Review of Systems Patient has no acute medical complaints at this time Yes all other systems are reviewed and are negative Mental Status Exam Mental Status Exam Narrative: Appearance: casually groomed, fair hygiene, in NAD Behavior: cooperative Psychomotor: no agitation or retardation noted Speech: clear, normal rate/rhythm/volume, spontaneous TP: linear TC: some paranoid ideas of peers doing spells, no insight into mental illness or need for treatment Mood: good Affect congruent, SI: none HI: none VH/AH: less talking to someone who is not there Delusions: less paranoid delusions Insight/judgment: poor x 2 Alert, oriented x 3. Diagnostics Vital Signs (24Hr): Vital Signs - 24 hr 07/01/23 08:00 Temperature 98.0 F Pulse Rate 68 Respiratory Rate 18 Blood Pressure 127/55 L Pulse Oximetry 98 Oxygen Delivery Method Room Air BMI result Body Mass Index 27.8 Labs 06/01/23 08:07 Imaging Radiology Impressions: ITS Impressions Ankle X-Ray 06/30/23 21:00 IMPRESSION: Soft tissue swelling without fracture. Medications Medications Current Medications Acetaminophen (Acetaminophen 325 Mg Tablet) 650 mg PO Q6H PRN PRN Reason: Headache/Pain Mild Scale (1-3) Last Admin: 07/01/23 20:05 Dose: 650 mg Al Hydroxide/Mg Hydroxide (Magnesium Hydrox/Alum Hydrox 30 Ml Oral.Susp) 30 ml PO Q6H PRN PRN Reason: Heartburn/Nausea Amlodipine Besylate (Amlodipine Besylate 2.5 Mg Tablet) 2.5 mg PO DAILY [facility]; Protocol Last Admin: 07/01/23 08:29 Dose: Not Given Aripiprazole (Aripiprazole 30 Mg Tablet) 30 mg PO DAILY [facility] Last Admin: 07/01/23 08:27 Dose: 30 mg Aripiprazole (Aripiprazole Er 400 Mg Suser.Syr) 400 mg IM Q28D [facility] Last Admin: 06/19/23 13:32 Dose: 400 mg Benztropine Mesylate (Benztropine Mesylate 1 Mg Tablet) 1 mg PO DAILY [facility] Last Admin: 07/01/23 08:26 Dose: 1 mg Divalproex Sodium (Divalproex Sodium Sprinkles 125 Mg ) 500 mg PO BEDTIME [facility] Last Admin: 07/01/23 20:07 Dose: Not Given Haloperidol (Haloperidol 5 Mg Tablet) 5 mg PO DAILY [facility] Last Admin: 07/01/23 08:28 Dose: 5 mg Hydroxyzine HCl (Hydroxyzine Hcl 25 Mg Tablet) 25 mg PO Q6H PRN PRN Reason: Anxiety Magnesium Hydroxide (Milk Of Magnesia 30 Ml Oral.Susp) 30 ml PO DAILY PRN PRN Reason: Constipation Propranolol HCl (Propranolol Hcl 10 Mg Tablet) 10 mg PO BID [facility]; Protocol Last Admin: 07/01/23 20:08 Dose: Not Given Trazodone HCl (Trazodone Hcl 50 Mg Tablet) 50 mg PO BEDTIME PRN PRN Reason: Insomnia Ziprasidone (Ziprasidone Mesylate 20 Mg Vial) 20 mg IM DAILY PRN PRN Reason: if pt refuses po abilify Osman Allergies Allergies Allergy/AdvReac Type Severity Reaction Status Date / Time aspirin Allergy Hives Verified 05/31/23 16:21 Assessment & Plan Assessment & Plan (1) Schizoaffective disorder: Status: Acute Code(s): F25.9 - Schizoaffective disorder, unspecified Plan The patient is an elderly female, with a long history of psychosis, followed by [facility] through VNA and intensive case management, referred for noncompliance of treatment with exacerbation of psychotic symptoms elicited by disorganized behavior irritability and agitation. Plan 06/09: Encourage adherence. Continue current treatment plan. 06/10: Continue current plan of care. 06/11 add haldol 5mg po daily per leesa, back up IM Haldol 06/12 continue tx. 06/13 add cogentin 1mg po daily. 06/14 continue tx. 06/15 continue tx. 06/16 continue current treatment plan 06/17 continue current treatment plan (continues to refuse Depakote) 06/18 no change in tx plan 06/19 pt to receive MARTINO Abilify Maintena 400mg IM q monthly. continue oral as there is 2 week delay onset. continue haldol and cogentin. 06/20 continue tx. 06/21 continue tx. 06/23/23 Continue regime and plan of care 06/24/23 Continue regime and plan of care 06/25 continue tx. Pt appears less paranoid. No aggression towards self or others. 06/26 continue tx. 06/27 continue tx. 06/28 continue tx. 06/29 continue same treatment. 06/30 continue tx. 07/01 continue tx. dc sunday Reason for continued inpatient stay Substantial Risk for: stable for discharge Time Spent With Patient Time: Total time managing care of this patient today ____ minutes.
[2023-07-01 22:00] VITALS: BP 129/62; PULSE 68; RESP 16; TEMP 36; O2SAT 96
[2023-07-02] MEDS: Acetaminophen 325 MG TABLET 650 MG PO ×2 (08:16→14:19)
[2023-07-02] MEDS: Benztropine Mesylate 1 MG TABLET PO (08:17)
[2023-07-02] MEDS: ARIPiprazole 30 MG TABLET PO (08:17)
[2023-07-02] MEDS: HaloperidoL 5 MG TABLET PO (08:17)
[2023-07-02] MEDS: Propranolol HCL 10 MG TABLET PO ×2 (08:17→20:42)
[2023-07-02 09:57] VITALS: BP 130/65; PULSE 89; RESP 18; TEMP 36.5; O2SAT 95
[2023-07-02 21:11] VITALS: BP 173/73; PULSE 80; RESP 16; TEMP 37; O2SAT 95
[2023-07-03] MEDS: Acetaminophen 325 MG TABLET 650 MG PO (06:44)
[2023-07-03 08:00] VITALS: BP 141/61; PULSE 67; RESP 17; O2SAT 98
[2023-07-03] MEDS: Propranolol HCL 10 MG TABLET PO (08:09)
[2023-07-03] MEDS: HaloperidoL 5 MG TABLET PO (08:10)
[2023-07-03] MEDS: ARIPiprazole 30 MG TABLET PO (08:10)
[2023-07-03 08:17] VITALS: BP 141/61; PULSE 67; RESP 17; O2SAT 98
--- NOTE | 2023-07-03 09:29 | P.PNPSI_ITS ---
Subjective Subjective Date of Service: 07/02/23 Reason For Visit: Schizoaffective disorder Subjective Notes: Section 7 Interim History: Pt sleeping through the night. She continues to present as pleasant but somewhat suspicious and guarded. she denies SI/HI. less paranoia. no insight into mental illness. Review of Systems Review of Systems Patient has no acute medical complaints at this time Yes all other systems are reviewed and are negative Mental Status Exam Mental Status Exam Narrative: Appearance: casually groomed, fair hygiene, in NAD Behavior: cooperative Psychomotor: no agitation or retardation noted Speech: clear, normal rate/rhythm/volume, spontaneous TP: linear TC: some paranoid ideas of peers doing spells, no insight into mental illness or need for treatment Mood: good Affect congruent, SI: none HI: none VH/AH: less talking to someone who is not there Delusions: less paranoid delusions Insight/judgment: poor x 2 Alert, oriented x 3. Diagnostics Vital Signs (24Hr): Vital Signs - 24 hr 07/02/23 09:57 07/02/23 21:11 07/03/23 08:17 Temperature 97.7 F 98.6 F Pulse Rate 89 80 67 Respiratory Rate 18 16 17 Blood Pressure 130/65 173/73 H 141/61 H Pulse Oximetry 95 95 98 Oxygen Delivery Method Room Air Room Air Room Air BMI result Body Mass Index 27.8 Labs 06/01/23 08:07 Imaging Radiology Impressions: ITS Impressions Ankle X-Ray 06/30/23 21:00 IMPRESSION: Soft tissue swelling without fracture. Medications Medications Current Medications Acetaminophen (Acetaminophen 325 Mg Tablet) 650 mg PO Q6H PRN PRN Reason: Headache/Pain Mild Scale (1-3) Last Admin: 07/03/23 06:44 Dose: 650 mg Al Hydroxide/Mg Hydroxide (Magnesium Hydrox/Alum Hydrox 30 Ml Oral.Susp) 30 ml PO Q6H PRN PRN Reason: Heartburn/Nausea Amlodipine Besylate (Amlodipine Besylate 2.5 Mg Tablet) 2.5 mg PO DAILY [facility]; Protocol Last Admin: 07/03/23 08:13 Dose: Not Given Aripiprazole (Aripiprazole 30 Mg Tablet) 30 mg PO DAILY [facility] Last Admin: 07/03/23 08:10 Dose: 30 mg Aripiprazole (Aripiprazole Er 400 Mg Suser.Syr) 400 mg IM Q28D [facility] Last Admin: 06/19/23 13:32 Dose: 400 mg Benztropine Mesylate (Benztropine Mesylate 1 Mg Tablet) 1 mg PO DAILY [facility] Last Admin: 07/03/23 08:16 Dose: Not Given Divalproex Sodium (Divalproex Sodium Sprinkles 125 Mg Kee.) 500 mg PO BEDTIME [facility] Last Admin: 07/02/23 20:42 Dose: Not Given Haloperidol (Haloperidol 5 Mg Tablet) 5 mg PO DAILY [facility] Last Admin: 07/03/23 08:10 Dose: 5 mg Hydroxyzine HCl (Hydroxyzine Hcl 25 Mg Tablet) 25 mg PO Q6H PRN PRN Reason: Anxiety Magnesium Hydroxide (Milk Of Magnesia 30 Ml Oral.Susp) 30 ml PO DAILY PRN PRN Reason: Constipation Propranolol HCl (Propranolol Hcl 10 Mg Tablet) 10 mg PO BID [facility]; Protocol Last Admin: 07/03/23 08:09 Dose: 10 mg Trazodone HCl (Trazodone Hcl 50 Mg Tablet) 50 mg PO BEDTIME PRN PRN Reason: Insomnia Ziprasidone (Ziprasidone Mesylate 20 Mg Vial) 20 mg IM DAILY PRN PRN Reason: if pt refuses po abilify Osman Allergies Allergies Allergy/AdvReac Type Severity Reaction Status Date / Time aspirin Allergy Hives Verified 05/31/23 16:21 Assessment & Plan Assessment & Plan (1) Schizoaffective disorder: Status: Acute Code(s): F25.9 - Schizoaffective disorder, unspecified Plan The patient is an elderly female, with a long history of psychosis, followed by [facility] through VNA and intensive case management, referred for noncompliance of treatment with exacerbation of psychotic symptoms elicited by disorganized behavior irritability and agitation. Plan 06/09: Encourage adherence. Continue current treatment plan. 06/10: Continue current plan of care. 06/11 add haldol 5mg po daily per leesa, back up IM Haldol 06/12 continue tx. 06/13 add cogentin 1mg po daily. 06/14 continue tx. 06/15 continue tx. 06/16 continue current treatment plan 06/17 continue current treatment plan (continues to refuse Depakote) 06/18 no change in tx plan 06/19 pt to receive MARTINO Abilify Maintena 400mg IM q monthly. continue oral as there is 2 week delay onset. continue haldol and cogentin. 06/20 continue tx. 06/21 continue tx. 06/23/23 Continue regime and plan of care 06/24/23 Continue regime and plan of care 06/25 continue tx. Pt appears less paranoid. No aggression towards self or others. 06/26 continue tx. 06/27 continue tx. 06/28 continue tx. 06/29 continue same treatment. 06/30 continue tx. 07/01 continue tx. dc monday 07/02 stable. d/c 07/03 Reason for continued inpatient stay Substantial Risk for: stable for discharge Time Spent With Patient Time: Total time managing care of this patient today ____ minutes.
--- NOTE | 2023-07-03 09:55 | PM.PSYDC ---
DS: Providers Provider Date of Service: 07/03/23 Date of admission: 05/31/23 15:21 Primary care physician: Unknown Physician Consults: 05/31/23 16:22 Consult to Hospitalist Routine Comment: Consulting Provider: Hospitalist Reason For Exam: medical H&P DS: Diagnosis Discharge Diagnosis (1) Schizoaffective disorder: Status: Acute DS: Medications Discharge Medications Home Medications: Previous Rx's Medication Instructions Recorded aripiprazole 400 mg suspension, 400 mg IM Q28D #1 ea 07/03/23 extended rel.intramuscular syringe (Tiffanie Julio) benztropine 1 mg tablet 1 mg PO DAILY #30 tabs 07/03/23 haloperidol 5 mg tablet 5 mg PO DAILY #30 tabs 07/03/23 propranolol 10 mg tablet 10 mg PO BID #60 tabs 07/03/23 Mental Status Exam Mental Status Exam Narrative: Appearance: casually groomed, fair hygiene, in NAD Behavior: cooperative Psychomotor: no agitation or retardation noted Speech: clear, normal rate/rhythm/volume, spontaneous TP: linear TC: some paranoid ideas of peers doing spells, no insight into mental illness or need for treatment Mood: good Affect congruent, SI: none HI: none VH/AH: less talking to someone who is not there Delusions: less paranoid delusions Insight/judgment: poor x 2 Alert, oriented x 3. Data Imaging Diagnostic Imaging Impressions Ankle X-Ray 06/30/23 21:00 IMPRESSION: Soft tissue swelling without fracture. DS: Summary Hospital Course Hospital Course: The patient is a 77-year-old female, residing at her home home, with with a long history of psychiatric illness, [facility] case managed through [facility] The patient has a community court order for treatment over objection and she has VNA services. According to the crisis assessment, the patient has refused to engage or allow the VNA in her home and dispense her medications. She presented herself with irritability agitation and aggression. The team called crisis as she was rushed to the emergency room where she refused to collaborate on the assessment. The patient was transferring to this facility for psychiatric stabilization. On interview, the patient reported that she is doing fine that she signed a 3 day notice, and she stated that she wound on court and she does not have to take medications. I explained her that we received a fax with her treatment over objection and she needs to take medication. She was disorganized, laughing inappropriately and tangential with severe thought process disorganization. Even though, she adamantly denies suicidal or homicidal ideation. The staff has noticed that she needs prompts for her activities of daily life. Risk, benefits, side-effects and alternatives were discussed with the patient but she stated that everything is okay. I explained her that we have the court order and she refused her Abilify we will need to give him Geodon IM. Past Psychiatric History: She has a long history of psychiatric illness she was diagnosed with psychosis and she has ancillary services by in. She has VNA and other services that she had been refusing. She has several prior admissions into the hospital. Medical Evaluation Reviewed: Yes HOSPITAL COURSE On the unit, on a sect 12b and placed on 15 minutes checks for safety. Pt presented as irritable, yelling at peers and staff due her paranoid delusions. She denied SI/HI. Pt has Osman's that includes MARTINO Abilify. She was started on oral abilify with back IM geodone should she decline oral. She gradually presented less paranoid but still yelling and hypervigilant. She was started on low dose of haldol 5mg po daily. Gradually she presented as less paranoid, much more pleasant and social with peers. She attended all assigned groups and appears to enjoy activities. She was no longer yelling or irritable or accusatory. However, she still does not think she has a mental illness or that she needs psychotropic medications. She is guarded about all medications and did not take medications for blood pressure. She continued to denied SI/HI. She appears to be responding less to internal stimuli although when you asked her she would denied ever hearing voices others can't hear. Treatment team had filed for involuntary treatment as she came on sect 12b and continued to present as gravely disable due to severe paranoia and psychosis. However, she did show significant improvement prior to court and pt was discharged back home with ACCS services. Status at Discharge Cognitive/behavioral status at discharge: Pt presents as much less guarded, less irritable. She is also much less paranoid, less ideas about people casting spells on her. No SI/HI. Pt social with peers, no signs of aggression towards self or others. Less AH/VH. Functional status at discharge: independent ambulation Overall status at discharge: patient is progressing back to baseline Time Spent with Patient Time attestation: Total time managing care of this patient today __40__ minutes. Time spent: Greater than 30 minutes Discharge Plan Discharge Anticipated Discharge Date/Time: 07/03/23 09:31 Patient Disposition: Home, Self-Care Discharge Diagnosis: Schizophrenia Referrals: [facility] [Other] - 07/18/23 1:00 pm (Your next appointment with Maryjane Meir is 07/18/23 at 1pm in person at the office. ) [facility] [Other] - 07/04/23 (Your VNA services will resume with [facility]. A nurse will contact and visit you at home following discharge.) [facility] [Other] - 07/03/23 (You outreach services will resume with ACCS team at time of discharge. ) Discharge Medications: New haloperidol 5 mg Tablet 5 mg PO DAILY Qty: 30 0RF propranolol 10 mg Tablet 10 mg PO BID Qty: 60 0RF Protocol: Hold for SBP/HR < HOLD for SBP < : 90 HOLD for HR < : 60 benztropine 1 mg Tablet 1 mg PO DAILY Qty: 30 0RF Abilify Maintena 400 mg Suspension,Extended Rel Syring 400 mg IM Q28D Qty: 1 2RF Discontinued propranolol 10 mg tablet 10 mg PO BID divalproex 500 mg tablet extended release 24 hr 500 mg PO QPM ziprasidone HCl 60 mg capsule 60 mg PO DAILY aripiprazole 30 mg tablet 30 mg PO DAILY Discharge Orders: Discharge Order (Routine); Ordered 07/03/23 Ordered By: Tiana Fischer Diet: Regular diet Activity on Discharge: As tolerated Stand Alone Forms: Patient Portal Discharge page, Community Support Care Plan Goals: 1. Maintain mood 2. No SI/HI 3. No aggression towards self or others 4. Less AH/VH, less paranoia Health Concerns: Follow up with PCP Plan of Treatment: 1. Take medications as prescribed 2. Go to nearest ED or call 911 in event of emergency Assessment: Pt much less paranoid, pleasant. Less AH/VH. She is sleeping and eating well. No signs of aggression towards self or others. Limited insight into mental illness.
== END 2023-07-03 10:45 | disposition home or self-care (01) | DRG 885 ==
PROVIDERS: Social Worker; Admitting Provider Psychiatry & Neurology Psychiatry; Visit Provider Psychiatry & Neurology Psychiatry
DX: F25.9 Schizoaffective disorder, unspecified (principal); I10 Essential (primary) hypertension; Z91.148 Patient's other noncompliance with medication regimen for other reason; Z79.899 Other long term (current) drug therapy
CPT/HCPCS: 36415; 73600; 80053; 80061; 82607; 83036; 84443; J0401

== ENCOUNTER → 2023-05-31 15:21 | Outpatient (BNV) | payer MEDICARE, SELFPAY | PROVIDERS: Admitting Provider Psychiatry & Neurology Psychiatry; Visit Provider Student in an Organized Health Care Education/Training Program | DX: F25.9 Schizoaffective disorder, unspecified (principal) | CPT/HCPCS: 99222 ==

== ENCOUNTER → 2023-05-31 15:21 | Outpatient (BNV) | payer MEDICARE, SELFPAY | PROVIDERS: Admitting Provider Psychiatry & Neurology Psychiatry; Visit Provider Psychiatry & Neurology Psychiatry | DX: F25.8 Other schizoaffective disorders (principal) | CPT/HCPCS: 90792; 99231; 99232; 99239 ==

== ENCOUNTER 2023-07-16 12:11 | Inpatient (IN) | payer MEDICARE, SELFPAY ==
--- NOTE | 2023-07-16 12:25 | ED_ITS ---
HPI - Psych General Chief Complaint: Psychiatric Symptoms Stated Complaint: SEC12,NOT CALM/COOP,PARANOID,NON MED COMPLIANT Time Seen by Provider: 07/16/23 12:24 Source: patient, EMS, RN notes reviewed and old records reviewed Mode of arrival: EMS History of Present Illness HPI Narrative: 77-year-old female with a past medical history of schizoaffective disorder presenting to the ED via EMS from home on Section 12 from Community for paranoia, agitation and medication noncompliance. Patient was evaluated by N in community and is now an inpatient bed search. Patient was recently discharged from our facility on 07/03/2023. Reports noncompliance with medications, has been refusing VNA to administer medicine. Denies SI/HI or EtOH/illicit drug use. History limited due to patient's acute mental status/uncooperation Related Data Home Medications Medication Instructions Recorded Confirmed aripiprazole 30 mg tablet 30 mg PO DAILY 07/16/23 07/16/23 divalproex 500 mg tablet,extended 500 mg PO QPM 07/16/23 07/16/23 release 24 hr propranolol 10 mg tablet 10 mg PO BID 07/16/23 07/16/23 ziprasidone HCl 60 mg capsule 60 mg PO DAILY 07/16/23 07/16/23 Allergies Allergy/AdvReac Type Severity Reaction Status Date / Time aspirin Allergy Hives Verified 05/31/23 16:21 Review of Systems 2 Review of Systems: Constitutional: No Fever, No Chills, No Fatigue, No Malaise Cardiovascular: No Chest Pain, No SOB Respiratory: No Cough Gastrointestinal: No Nausea, No Vomiting, No Diarrhea, No Constipation, No Abdominal pain Skin: No Skin Lesions, No rash Neuro: No Weakness, No Headache Psych: No Anxiety/Panic, No Depression, No SI/HI/AH/VH, + Social Issues, + paranoid Yes all other systems are reviewed and are negative Constitutional: Constitutional: Reports as per HPI [facility] Past Medical History Attestation statement: The following information was validated with the patient. Source: old records reviewed Social History Social History Household Members: None Housing: House Do you presently have visiting nurse or other home services: Yes ([facility]) Patient Tobacco Use Status: Never used Tobacco Smoked in Last 30 Days: No Use of substances other than those prescribed or required for medical reasons: No Advance Directives: No Advance Directives Information Provided: No service: No Sexual orientation: Straight/Heterosexual Physical Exam 2 Vital Signs: Vital Signs: Last Vital Signs Temp 97.4 F 07/16/23 23:55 Pulse 72 07/16/23 23:55 Resp 17 07/16/23 23:55 BP 146/59 H 07/16/23 23:55 Pulse Ox 97 07/16/23 23:55 O2 Del Method Room Air 07/16/23 23:55 BMI result Body Mass Index 25.1 Const: General: cooperative, healthy appearing and no acute distress O rientation/consciousness: patient oriented x3 Limitations: no limitations HEENT: Head: Yes normal to inspection and Yes atraumatic Ears: hearing grossly normal bilaterally General nose exam: Normal external nose present Face and sinus: Yes normal facial exam Eyes: General: appearance normal, both eyes and all related structures EOM: EOMs intact bilaterally Neck: Neck: Yes normal visual inspection and Yes no meningeal signs Resp: Effort & Inspection: normal respiratory effort and no respiratory distress Cardio: Rate: regular rate Skin: Rashes: no rashes Wounds: no wounds Neuro: General: patient oriented x3, tone normal, no meningeal signs and CN's II-XI intact bilaterally Cranial nerves: Yes CN's II-XII intact bilaterally Gait exam (Neuro): Normal gait present Extrem: General: Yes normal to inspection Psych: Speech and movement: Pressured speech present Affect: Hostile affect present Thought content: suicidality and no homicidality Course Course Course Narrative: -COVID-19 negative. Patient currently refusing labs. Is already bed search from Community -1630--ED care transferred to [facility] pending inpatient BS Reevaluation(s) Reevaluation #1: Physician observation continued. No acute events overnight. inpatient bed search. VS stable. Medical Decision Making Medical Decision Making [facility] Narrative: 77-year-old female with a past medical history of schizoaffective disorder presenting to the ED via EMS from home on Section 12 from Community for paranoia, agitation and medication noncompliance. On exam hostile, yelling at staff, uncooperative with exam/full history. Paranoid. Denies SI/HI. Concern for medication noncompliance. Rule out metabolic abnormalities Plan: Labs, [place], CARE/Sect 12 BS Please refer to course for remaining clinical decision making, interpretation of labs/imaging results, and discussions with consultants and/or family members. Differential Diagnosis Differential Diagnoses: The differential diagnosis associated with the presentation includes As above Admission/Observation Consideration of admission/observation: Escalation of care including admission/observation considered Consult Healthcare Provider Management of the patient was discussed with: Behavioral Health Provider Lab Data MDM Lab Attestation statement: I reviewed the patient's lab results. 07/16/23 19:45 07/16/23 19:45 Labs: Lab Results 07/16/23 07/16/23 07/16/23 Range/Units 15:01 19:45 23:35 WBC 9.0 (4.8-10.8) X10*3/uL RBC 4.85 (4.20-5.50) X10*6/uL Hgb 14.4 (12.0-16.0) g/dl Hct 43.2 (37.0-47.0) % MCV 89.1 (80.0-98.0) fL MCH 29.7 (27.0-33.0) pg MCHC 33.3 (31.0-35.0) g/dl RDW 14.6 (11.0-16.0) % Plt Count 224 (160-400) X10*3/uL MPV 11.8 (9.4-12.3) fL Immature Gran % (Auto) 0.2 (0.0-0.4) % Neut % (Auto) 75.0 H (45-73) % Lymph % (Auto) 18.1 L (20-40) % [place] % (Auto) 5.4 (2-11) % Eos % (Auto) 0.9 (0-4) % Baso % (Auto) 0.4 (0-2) % Lymph # (Auto) 1.6 (1.2-4.9) X10*3/uL [place] # (Auto) 0.5 (0.1-1.2) X10*3/uL Eos # (Auto) 0.1 (0.0-0.4) X10*3/uL Baso # (Auto) 0.0 (0.0-0.2) X10*3/uL Abs Immat Gran (auto) 0.02 (0.00-0.03) X10*3/uL Absolute Neuts (auto) 6.7 (2.0-8.3) x10*3/uL Absolute Nucleated RBC 0.000 (0.0-0.012) X10*3/uL Nucleated RBC % (auto) 0.0 (0.0-0.2) /100WBC Sodium 140 (135-145) mmol/L Potassium 3.9 (3.3-5.1) mmol/L Chloride 104 (96-108) mmol/L Carbon Dioxide 27 (22-29) mmol/L Anion Gap 13 (12-20) BUN 7 L (9-16) mg/dL Creatinine 0.76 (0.5-1.4) mg/dL Estim Creat Clear Calc 45.3 Estimated GFR > 60 Random Glucose 99 (60-115) mg/dL Calcium 9.4 D (8.4-10.2) mg/dL Magnesium 2.5 (1.6-2.6) mg/dL Total Bilirubin 1.3 H (0.0-1.0) mg/dL Direct Bilirubin 0.4 (0.0-0.5) mg/dL AST 16 (5-31) U/L ALT 12 (0-31) U/L Alkaline Phosphatase 104 (39-117) U/L Total Protein 7.1 (6.5-8.0) g/dL Albumin 4.2 (3.5-5.0) g/dL Urine Color Yellow Urine Appearance Clear Urine pH 5.5 (5.0-9.0) Ur Specific [place] 1.010 (1.005-1.025) Urine Protein Negative (Neg-Trace) mg/dL Urine Glucose (UA) Negative (Negative) mg/dL Urine Ketones Negative (Negative) mg/dL Urine Blood Negative (Negative) Urine Nitrite Negative (Negative) Ur Leukocyte Esterase Negative (Negative) Salicylates < 5.0 L (15-30) mg/dL Urine Opiates Screen Not Detected (Not Detect) Urine Fentanyl Screen Not Detected (Not Detect) Acetaminophen < 17 (<30) mcg/mL Ur Barbiturates Screen Not Detected (Not Detect) Valproic Acid < 12.5 L (50.0-100.0) mcg/mL Ur Phencyclidine Scrn Not Detected (Not Detect) Ur Amphetamines Screen Not Detected (Not Detect) U Benzodiazepines Scrn Not Detected (Not Detect) Urine Cocaine Screen Not Detected (Not Detect) U Marijuana (THC) Screen Not Detected (Not Detect) Ethyl Alcohol < 10 mg/dL COVID-19 (MYRIAM) Negative (Negative) COVID-19 Clin Com See Note Radiology Impression Discussion of test interpretation with radiology: I have reviewed the radiologist's reading. Independent Historian Clinical information obtained from an independent historian. History obtained from or confirmed by: EMS External Record Review External record reviewed: Inpatient record, Office record, Outpatient record, Prior outpatient labs, Prior outpatient radiology, Primary care record and Outside ED record Tests considered The following testing was considered but not selected: As above Chronic Conditions Patient?s care impacted by: Other Social Determinants Patient?s care significantly limited by Social Determinants of Health including: Problems related to primary support group Discharge Plan Discharge Clinical Impression: Schizoaffective disorder, Paranoia, Noncompliance with medications Patient Disposition: Still a Patient Prescriptions: No Action propranolol 10 mg tablet 10 mg PO BID divalproex 500 mg tablet extended release 24 hr 500 mg PO QPM ziprasidone HCl 60 mg capsule 60 mg PO DAILY aripiprazole 30 mg tablet 30 mg PO DAILY Interventions: [place]-Suicide Risk Severity Scale Last Done: 07/17/23 06:26
[2023-07-16 12:33] VITALS: BP 142/61; BP 148/61; PULSE 116; PULSE 90; RESP 19; TEMP 36.3; O2SAT 97; O2SAT 98; BMI 25.1
--- NOTE | 2023-07-16 12:37 | MHC.CARE ---
Pt was assessed by N crisis in the community and found IPLOC
[2023-07-16 15:34] LABS: COVID-19 Test Negative (Negative); IDNOW Serial# BCCEAD1C
--- NOTE | 2023-07-16 17:09 | PC.NURSE ---
pt goes by [facility] per triage note, pt declined labs stating that insurance will get billed and I'll need to pay for it. med rec completed based off of pharmacy last filled - medications filled 05/13 with a 30 day supply.
[2023-07-16 19:49] LABS: MANUAL DIFF FLAG NO
[2023-07-16 19:51] LABS: Basophils Percent Auto 0.4 % (0-2); Eosinophils Absolute Auto 0.1 X10*3/uL (0.0-0.4); Eosinophils Percent Auto 0.9 % (0-4); Hematocrit 43.2 % (37.0-47.0); Hemoglobin 14.4 g/dl (12.0-16.0); Imm Gran Abs Auto 0.02 X10*3/uL (0.00-0.03); Imm Gran Pct Auto 0.2 % (0.0-0.4); Lymphocytes Absolute Auto 1.6 X10*3/uL (1.2-4.9); Lymphocytes Percent Auto 18.1 % (20-40); Mean Corpuscular HGB Conc 33.3 g/dl (31.0-35.0); Mean Corpuscular Hemoglobin 29.7 pg (27.0-33.0); Mean Corpuscular Volume 89.1 fL (80.0-98.0); Mean Platelet Volume 11.8 fL (9.4-12.3); Monocytes Absolute Auto 0.5 X10*3/uL (0.1-1.2); Monocytes Percent Auto 5.4 % (2-11); Neutrophils Absolute Auto 6.7 x10*3/uL (2.0-8.3); Platelet Count 224 X10*3/uL (160-400); Red Blood Count 4.85 X10*6/uL (4.20-5.50); Red Cell Distribution Width 14.6 % (11.0-16.0)
[2023-07-16 20:07] LABS: Valproate < 12.5 mcg/mL (50.0-100.0)
[2023-07-16 20:08] LABS: Alanine Aminotransferase 12 U/L (0-31); Albumin Level 4.2 g/dL (3.5-5.0); Alkaline Phosphatase 104 U/L (39-117); Anion Gap 13 (12-20); Aspartate Amino Transferase 16 U/L (5-31); Bilirubin Direct 0.4 mg/dL (0.0-0.5); Bilirubin Total 1.3 mg/dL (0.0-1.0); Blood Urea Nitrogen 7 mg/dL (9-16); Calcium 9.4 mg/dL (8.4-10.2); Carbon Dioxide 27 mmol/L (22-29); Chloride 104 mmol/L (96-108); Creatinine Clr Calc Pharmacy 45.3; Estimated Glomerular Filt Rate > 60; Glucose Random 99 mg/dL (60-115); Magnesium 2.5 mg/dL (1.6-2.6); Potassium 3.9 mmol/L (3.3-5.1); Sodium 140 mmol/L (135-145); Total Protein 7.1 g/dL (6.5-8.0)
[2023-07-16 20:12] LABS: Acetaminophen LAB < 17 mcg/mL (<30); Salicylate < 5.0 mg/dL (15-30)
[2023-07-16 20:25] VITALS: BP 156/61; PULSE 73; RESP 18; TEMP 36.1; O2SAT 98
[2023-07-16 23:47] LABS: Appearance Urine Clear; Color Urine Yellow; Glucose Urine UA Negative (Negative); Leukocyte Esterase Urine Negative (Negative); Nitrite Urine Negative (Negative); PH 5.5 (5.0-9.0); Urine Blood Negative (Negative); Urine Ketones Negative (Negative); Urine Protein Negative (Neg-Trace)
[2023-07-16 23:55] VITALS: BP 146/59; PULSE 72; RESP 17; TEMP 36.3; O2SAT 97
[2023-07-17 00:03] LABS: Amphetamine Screen Urine Not Detected (Not Detect); Barbiturates, Urine Not Detected (Not Detect); Benzodiazepines Screen Urine Not Detected (Not Detect); Cannabinoid Screen Urine Not Detected (Not Detect); Cocaine Screen Urine Not Detected (Not Detect); Fentanyl, urine Not Detected (Not Detect); Opiate Screen Urine Not Detected (Not Detect); Phencyclidine Screen Urine Not Detected (Not Detect)
[2023-07-17 00:38] LABS: Ethanol < 10 mg/dL
--- NOTE | 2023-07-17 06:28 | PC.NURSE ---
Patient did not sleep whole night, no distress observed/reported, refused to take medication, medication rec completed/pending provider's approval, labs completed/resulted, disposition per [facility] is section 12 inpatient bed search, VSS, behavior non concerning, thought content is disorganized at time paranoid, will continue to monitor.
--- NOTE | 2023-07-17 09:37 | MHC.EDTECH ---
T/w approached pt about EKG multiple times. Pt refused at this time, stated, I will do it once I know how long I'll be here.
[2023-07-17 11:01] VITALS: BP 159/59; PULSE 69; RESP 15; TEMP 36; O2SAT 97
--- NOTE | 2023-07-17 13:37 | PC.NURSE ---
Elo has been visible in the milieu this shift and has been sitting in the common area watching TV. She has also been observed pacing and has asked for some tea several times. Refused EKG verbalizing not until you tell me exactly when I'm leaving . Elo was not willing to sign a CV. Appetite is good eating 100% of meals and snacks.
[2023-07-17 14:20] VITALS: BP 135/69; PULSE 77; RESP 18; TEMP 36.9; O2SAT 97
[2023-07-17 14:25] VITALS: BMI 27.6
--- NOTE | 2023-07-17 16:21 | PC.NURSE ---
Flu vaccine administered
--- NOTE | 2023-07-17 17:06 | PC.ADMIT ---
Patient admitted to unit from [facility] on CV. Arrived via at 1410. Patient known from previous recent admission. Admission diagnosis is Schizoaffective Disorder Bipolar Type. Patient discharged from S1 07/03/23. Since that time patient has been noncompliant with meds and has refused to allow VNA services in her home. Patient has [facility] order in place for Abilify Maintena 400 mg and Haldol 5 mg. Last dose of Abilify Maintenna was 06/19/23. Patient states, I won my court case and don't need to take medication. Presents as alert and oriented x4. Lacks insight into situation stating, I have no idea why I am here. Elo pleasant and cooperative with admission process. Appeared neatly groomed. Thought process disorganized. Observed to be self dialouging. Ambulates with steady gait independently. Flu vaccine administered. Patient re-oriented to unit. Requested three day notice.
[2023-07-17 18:00] VITALS: BP 144/61; PULSE 91; RESP 17; TEMP 36.6
[2023-07-18 07:45] VITALS: BP 154/67; PULSE 82; RESP 18; TEMP 36.7; O2SAT 95
[2023-07-18 08:30] LABS: Alanine Aminotransferase 10 U/L (0-31); Albumin Level 3.8 g/dL (3.5-5.0); Alkaline Phosphatase 94 U/L (39-117); Anion Gap 12 (12-20); Aspartate Amino Transferase 14 U/L (5-31); Bilirubin Total 1.9 mg/dL (0.0-1.0); Blood Urea Nitrogen 12 mg/dL (9-16); Calcium 9.1 mg/dL (8.4-10.2); Carbon Dioxide 27 mmol/L (22-29); Chloride 105 mmol/L (96-108); Cholesterol 137 mg/dL (<200); Creatinine Clr Calc Pharmacy 51.5; Estimated Glomerular Filt Rate > 60; Glucose Fasting 98 mg/dL (60-99); HDL Cholesterol 49 mg/dL (>40); LDL Cholesterol Calculated 72 mg/dL (<100); Sodium 140 mmol/L (135-145); Total Protein 6.4 g/dL (6.5-8.0); Triglycerides 80 mg/dL (<150)
--- NOTE | 2023-07-18 08:40 | HO.PSYADMNOT ---
HPI Date of Service: 07/18/23 Chief Complaint: psychosis Sources of Information: patient interviewed, chart reviewed and crisis/core team assessment reviewed HPI Subjective Notes: Valadez Warning (given and shows understanding), Conditional Voluntary and 3 Day Narrative: Ms. Kohli is a 77 year-old woman with hx of schizophrenia. Pt was recently discharged from [facility] after treatment for psychosis and paranoia. She received Abilify Maintena 400mg IM q28 on 06/19, due for second IM on 07/19. She was also discharged on haldol 5mg po daily- which most likely pt was not taking in the community. Per [facility] crisis report, pt has declined letting ACCS and VNA come to her house. [facility] services with [facility] were closed due to pt declining to have this service. On the unit, pt presents as pleasant. She reports she does not agree with court order for antipsychotics. She continues to report that she does not have a mental illness. She denies SI/HI. She does not present as overly paranoid or suspicious other than lack of insight into her mental illness and need for treatment. Pt reports she feels calm. She reports sleep is good. She reports she signed a 3 day and hopes to go back home soon. She denies VH/AH. No overt signs of psychosis. Past Psychiatric History: [place] [facility] [facility]; 07/19/2017 & 04/2017 [place]; [facility]; 2007 [facility]. Pt at [facility] from [phone]. OP: Maryjane Worley [facility]- Don Engel ([phone]); Issac Martin [phone]/ [phone] Past medication trials: haldol, geodone, abilify maintana. depakote. Medical Evaluation Reviewed: Yes Diagnostics Vital Signs (24Hr): Vital Signs - 24 hr 07/17/23 11:01 07/17/23 14:20 07/17/23 18:00 Temperature 96.8 F 98.4 F 97.8 F Pulse Rate 69 77 91 Respiratory Rate 15 18 17 Blood Pressure 159/59 H 135/69 144/61 H Pulse Oximetry 97 97 Oxygen Delivery Method Room Air Room Air Room Air BMI result Body Mass Index 27.6 Labs 07/16/23 19:45 07/18/23 07:51 Labs: Laboratory Results - last 48 hr 07/16/23 07/16/23 07/16/23 15:01 19:45 23:35 WBC 9.0 RBC 4.85 Hgb 14.4 Hct 43.2 MCV 89.1 MCH 29.7 MCHC 33.3 RDW 14.6 Plt Count 224 MPV 11.8 Immature Gran % (Auto) 0.2 Neut % (Auto) 75.0 H Lymph % (Auto) 18.1 L [place] % (Auto) 5.4 Eos % (Auto) 0.9 Baso % (Auto) 0.4 Lymph # (Auto) 1.6 [place] # (Auto) 0.5 Eos # (Auto) 0.1 Baso # (Auto) 0.0 Abs Immat Gran (auto) 0.02 Absolute Neuts (auto) 6.7 Absolute Nucleated RBC 0.000 Nucleated RBC % (auto) 0.0 Sodium 140 Potassium 3.9 Chloride 104 Carbon Dioxide 27 Anion Gap 13 BUN 7 L Creatinine 0.76 Estim Creat Clear Calc 45.3 Estimated GFR > 60 Random Glucose 99 Fasting Glucose Calcium 9.4 D Magnesium 2.5 Total Bilirubin 1.3 H Direct Bilirubin 0.4 AST 16 ALT 12 Alkaline Phosphatase 104 Total Protein 7.1 Albumin 4.2 Triglycerides Cholesterol LDL Cholesterol, Calc HDL Cholesterol Urine Color Yellow Urine Appearance Clear Urine pH 5.5 Ur Specific [place] 1.010 Urine Protein Negative Urine Glucose (UA) Negative Urine Ketones Negative Urine Blood Negative Urine Nitrite Negative Ur Leukocyte Esterase Negative Salicylates < 5.0 L Urine Opiates Screen Not Detected Urine Fentanyl Screen Not Detected Acetaminophen < 17 Ur Barbiturates Screen Not Detected Valproic Acid < 12.5 L Ur Phencyclidine Scrn Not Detected Ur Amphetamines Screen Not Detected U Benzodiazepines Scrn Not Detected Urine Cocaine Screen Not Detected U Marijuana (THC) Screen Not Detected Ethyl Alcohol < 10 COVID-19 (MYRIAM) Negative COVID-19 Clin Com See Note 07/18/23 07:51 WBC RBC Hgb Hct MCV MCH MCHC RDW Plt Count MPV Immature Gran % (Auto) Neut % (Auto) Lymph % (Auto) [place] % (Auto) Eos % (Auto) Baso % (Auto) Lymph # (Auto) [place] # (Auto) Eos # (Auto) Baso # (Auto) Abs Immat Gran (auto) Absolute Neuts (auto) Absolute Nucleated RBC Nucleated RBC % (auto) Sodium 140 Potassium 4.0 Chloride 105 Carbon Dioxide 27 Anion Gap 12 BUN 12 Creatinine 0.70 Estim Creat Clear Calc 51.5 Estimated GFR > 60 Random Glucose Fasting Glucose 98 Calcium 9.1 Magnesium Total Bilirubin 1.9 H Direct Bilirubin AST 14 ALT 10 Alkaline Phosphatase 94 Total Protein 6.4 L Albumin 3.8 Triglycerides 80 Cholesterol 137 LDL Cholesterol, Calc 72 HDL Cholesterol 49 Urine Color Urine Appearance Urine pH Ur Specific [place] Urine Protein Urine Glucose (UA) Urine Ketones Urine Blood Urine Nitrite Ur Leukocyte Esterase Salicylates Urine Opiates Screen Urine Fentanyl Screen Acetaminophen Ur Barbiturates Screen Valproic Acid Ur Phencyclidine Scrn Ur Amphetamines Screen U Benzodiazepines Scrn Urine Cocaine Screen U Marijuana (THC) Screen Ethyl Alcohol COVID-19 (MYRIAM) COVID-19 Clin Com Meds/Allergies Meds Home Medications Medication Instructions Recorded Confirmed Type aripiprazole 30 mg tablet 30 mg PO DAILY 07/16/23 07/16/23 History divalproex 500 mg tablet,extended 500 mg PO QPM 07/16/23 07/16/23 History release 24 hr propranolol 10 mg tablet 10 mg PO BID 07/16/23 07/16/23 History ziprasidone HCl 60 mg capsule 60 mg PO DAILY 07/16/23 07/16/23 History Allergies Allergies Allergy/AdvReac Type Severity Reaction Status Date / Time aspirin Allergy Hives Verified 05/31/23 16:21 Mental Status Exam Mental Status Exam Narrative: Appearance: casually groomed, fair hygiene, in NAD Behavior: cooperative Psychomotor: no agitation or retardation noted Speech: clear, normal rate/rhythm/volume, spontaneous TP: linear TC: some paranoid ideas of peers doing spells, no insight into mental illness or need for treatment Mood: good Affect congruent, SI: none HI: none VH/AH: less talking to someone who is not there Delusions: less paranoid delusions Insight/judgment: poor x 2 Alert, oriented x 3. Assessment & Plan Assessment & Plan (1) Schizophrenia, paranoid, chronic with acute exacerbation: Status: Acute Code(s): F20.0 - Paranoid schizophrenia Plan Ms. Kohli is a 77 year-old male with hx of schizophrenia. She was recently discharged from on 07/03 after treatment for paranoia, increase AH/VH. She was started on abilify maintena 400mg IM on 06/19. She is due for next Abilify maintena 400mg IM- which was given today. Overall, pt presents as much calmer, no overly paranoid or internally preoccupied as we have seen her in the past. Per [facility] crisis, she was [place] [facility] [place] due to declining medications- mostly haldol 5mg po daily. However, she has not missed dose of Abilify Maintena. PLAN 1. Admit to , / day, 15 minutes checks for safety 2. continue haldol 5 mg po daily, abilify Maintena 400mg IM given today. 3. Aftercare planning 4. Obtain collateral information Patient educated on: diagnosis and medication risk/benefits Informed Consent: understands Reason for continued inpatient stay Substantial Risk for: inability to function Statement Statement: I have reviewed the history and physical and performed a pertinent examination on my patient. No changes have occurred unless specified. If the History and Physical was not performed prior to admission, the Hospitalist's service will be consulted for completing the admission physical. Time Spent With Patient Time: Total time managing care of this patient today ____ minutes.
[2023-07-18] MEDS: Propranolol HCL 10 MG TABLET PO ×2 (09:17→20:15)
[2023-07-18] MEDS: HaloperidoL 5 MG TABLET PO (09:17)
[2023-07-18] MEDS: ARIPiprazole ER 400 MG SUSER.SYR IM (10:26)
[2023-07-18 18:00] VITALS: BP 141/63; PULSE 73; RESP 18; TEMP 36; O2SAT 98
[2023-07-19 07:00] VITALS: BMI 27.6
[2023-07-19] MEDS: Propranolol HCL 10 MG TABLET PO ×2 (08:20→20:46)
[2023-07-19] MEDS: HaloperidoL 5 MG TABLET PO (08:20)
[2023-07-19 08:40] VITALS: BP 132/59; PULSE 75; RESP 18; TEMP 36.1; O2SAT 95
--- NOTE | 2023-07-19 16:30 | HO.PSYCHPN ---
Subjective Subjective Date of Service: 07/19/23 Reason For Visit: psychosis Subjective Notes: Conditional Voluntary and 3 Day Interim History: Pt reports sleeping and eating well. She continues to report she does not have mental illness but has agree to receive abilify 400mg IM per [facility]. She has also taken haldol. She denies SI/HI. She reports her neighbors were probably stealing from her but she is not as concerns. She does appear much calmer than other times when she has been in the hospital. Medication Compliance: Yes Review of Systems Review of Systems Constitutional: No Fever, No Chills, No Fatigue, No Malaise Cardiovascular: No Chest Pain, No SOB Respiratory: No Cough Gastrointestinal: No Nausea, No Vomiting, No Diarrhea, No Constipation, No Abdominal pain Skin: No Skin Lesions, No rash Neuro: No Weakness, No Headache Psych: No Anxiety/Panic, No Depression, No SI/HI/AH/VH, + Social Issues, + paranoid Yes all other systems are reviewed and are negative Constitutional: Reports as per HPI Mental Status Exam Mental Status Exam Narrative: Appearance: casually groomed, fair hygiene, in NAD Behavior: cooperative Psychomotor: no agitation or retardation noted Speech: clear, normal rate/rhythm/volume, spontaneous TP: linear TC: some paranoid ideas of peers doing spells, no insight into mental illness or need for treatment Mood: good Affect congruent, SI: none HI: none VH/AH: less talking to someone who is not there Delusions: less paranoid delusions Insight/judgment: poor x 2 Alert, oriented x 3. Diagnostics Vital Signs (24Hr): Vital Signs - 24 hr 07/18/23 18:00 07/19/23 08:40 Temperature 96.8 F 97.0 F Pulse Rate 73 75 Respiratory Rate 18 18 Blood Pressure 141/63 H 132/59 L Pulse Oximetry 98 95 Oxygen Delivery Method Room Air Room Air BMI result Body Mass Index 27.6 Labs 07/16/23 19:45 07/18/23 07:51 Labs: Laboratory Results - last 48 hr 07/18/23 07:51 Sodium 140 Potassium 4.0 Chloride 105 Carbon Dioxide 27 Anion Gap 12 BUN 12 Creatinine 0.70 Estim Creat Clear Calc 51.5 Estimated GFR > 60 Fasting Glucose 98 Calcium 9.1 Total Bilirubin 1.9 H AST 14 ALT 10 Alkaline Phosphatase 94 Total Protein 6.4 L Albumin 3.8 Triglycerides 80 Cholesterol 137 LDL Cholesterol, Calc 72 HDL Cholesterol 49 Medications Medications Current Medications Acetaminophen (Acetaminophen 325 Mg Tablet) 650 mg PO Q6H PRN PRN Reason: Headache/Pain Mild Scale (1-3) Al Hydroxide/Mg Hydroxide (Magnesium Hydrox/Alum Hydrox 30 Ml Oral.Susp) 30 ml PO Q6H PRN PRN Reason: Heartburn/Nausea Aripiprazole (Aripiprazole Er 400 Mg Suser.Syr) 400 mg IM Q30D [facility] Last Admin: 07/18/23 10:26 Dose: 400 mg Haloperidol (Haloperidol 5 Mg Tablet) 5 mg PO DAILY [facility] Last Admin: 07/19/23 08:20 Dose: 5 mg Haloperidol Lactate (Haloperidol Lactate 5 Mg/Ml Vial) 5 mg IM DAILY PRN PRN Reason: if refuses oral landers Hydroxyzine HCl (Hydroxyzine Hcl 25 Mg Tablet) 25 mg PO Q6H PRN PRN Reason: Anxiety Magnesium Hydroxide (Milk Of Magnesia 30 Ml Oral.Susp) 30 ml PO DAILY PRN PRN Reason: Constipation Propranolol HCl (Propranolol Hcl 10 Mg Tablet) 10 mg PO BID [facility]; Protocol Last Admin: 07/19/23 08:20 Dose: 10 mg Trazodone HCl (Trazodone Hcl 50 Mg Tablet) 50 mg PO BEDTIME PRN PRN Reason: Insomnia Allergies Allergies Allergy/AdvReac Type Severity Reaction Status Date / Time aspirin Allergy Hives Verified 05/31/23 16:21 Assessment & Plan Assessment & Plan (1) Schizophrenia, paranoid, chronic with acute exacerbation: Status: Acute Code(s): F20.0 - Paranoid schizophrenia Plan Ms. Kohli is a 77 year-old male with hx of schizophrenia. She was recently discharged from on 07/03 after treatment for paranoia, increase AH/VH. She was started on abilify maintena 400mg IM on 06/19. She is due for next Abilify maintena 400mg IM- which was given today. Overall, pt presents as much calmer, no overly paranoid or internally preoccupied as we have seen her in the past. Per [facility] crisis, she was brought to [facility] due to declining medications- mostly haldol 5mg po daily. However, she has not missed dose of Abilify Maintena. PLAN 1. Admit to , CV/3 day, 15 minutes checks for safety 2. continue haldol 5 mg po daily, abilify Maintena 400mg IM given on 07/18, next due 08/18 3. Aftercare planning 4. Obtain collateral information Reason for continued inpatient stay Substantial Risk for: inability to function Time Spent With Patient Time: Total time managing care of this patient today ____ minutes.
[2023-07-19 20:00] VITALS: BP 122/54; PULSE 78; RESP 18; TEMP 36.5; O2SAT 97
[2023-07-20 09:25] VITALS: BP 123/75; PULSE 73
[2023-07-20] MEDS: Propranolol HCL 10 MG TABLET PO (09:25)
--- NOTE | 2023-07-20 10:38 | PM.PSYDC ---
DS: Providers Provider Date of Service: 07/20/23 Date of admission: 07/17/23 13:11 Primary care physician: Unknown Physician DS: Diagnosis Discharge Diagnosis (1) Schizophrenia, paranoid, chronic with acute exacerbation: Status: Acute DS: Medications Discharge Medications Home Medications: Previous Rx's Medication Instructions Recorded aripiprazole 400 mg suspension, 400 mg IM Q30D #1 ea 07/20/23 extended rel.intramuscular syringe (Tiffanie Julio) haloperidol 5 mg tablet 5 mg PO DAILY #30 tabs 07/20/23 propranolol 10 mg tablet 10 mg PO BID #60 tabs 07/20/23 Mental Status Exam Mental Status Exam Narrative: Appearance: casually groomed, fair hygiene, in NAD Behavior: cooperative Psychomotor: no agitation or retardation noted Speech: clear, normal rate/rhythm/volume, spontaneous TP: linear TC: some paranoid ideas of peers doing spells, no insight into mental illness or need for treatment Mood: good Affect congruent, SI: none HI: none VH/AH: less talking to someone who is not there Delusions: less paranoid delusions Insight/judgment: poor x 2 Alert, oriented x 3. Data Data Completed and Pending Completed studies during hospitalization [Text1]: 07/16/23 07/16/23 07/16/23 15:01 19:45 23:35 WBC 9.0 RBC 4.85 Hgb 14.4 Hct 43.2 MCV 89.1 MCH 29.7 MCHC 33.3 RDW 14.6 Plt Count 224 MPV 11.8 Immature Gran % (Auto) 0.2 Neut % (Auto) 75.0 H Lymph % (Auto) 18.1 L [place] % (Auto) 5.4 Eos % (Auto) 0.9 Baso % (Auto) 0.4 Lymph # (Auto) 1.6 [place] # (Auto) 0.5 Eos # (Auto) 0.1 Baso # (Auto) 0.0 Abs Immat Gran (auto) 0.02 Absolute Neuts (auto) 6.7 Absolute Nucleated RBC 0.000 Nucleated RBC % (auto) 0.0 Sodium 140 Potassium 3.9 Chloride 104 Carbon Dioxide 27 Anion Gap 13 BUN 7 L Creatinine 0.76 Estim Creat Clear Calc 45.3 Estimated GFR > 60 Random Glucose 99 Fasting Glucose Calcium 9.4 D Magnesium 2.5 Total Bilirubin 1.3 H Direct Bilirubin 0.4 AST 16 ALT 12 Alkaline Phosphatase 104 Total Protein 7.1 Albumin 4.2 Triglycerides Cholesterol LDL Cholesterol, Calc HDL Cholesterol Urine Color Yellow Urine Appearance Clear Urine pH 5.5 Ur Specific [place] 1.010 Urine Protein Negative Urine Glucose (UA) Negative Urine Ketones Negative Urine Blood Negative Urine Nitrite Negative Ur Leukocyte Esterase Negative Salicylates < 5.0 L Urine Opiates Screen Not Detected Urine Fentanyl Screen Not Detected Acetaminophen < 17 Ur Barbiturates Screen Not Detected Valproic Acid < 12.5 L Ur Phencyclidine Scrn Not Detected Haloperidol Pending Ur Amphetamines Screen Not Detected U Benzodiazepines Scrn Not Detected Urine Cocaine Screen Not Detected U Marijuana (THC) Screen Not Detected Ethyl Alcohol < 10 COVID-19 (MYRIAM) Negative COVID-19 Clin Com See Note 07/18/23 07:51 WBC RBC Hgb Hct MCV MCH MCHC RDW Plt Count MPV Immature Gran % (Auto) Neut % (Auto) Lymph % (Auto) [place] % (Auto) Eos % (Auto) Baso % (Auto) Lymph # (Auto) [place] # (Auto) Eos # (Auto) Baso # (Auto) Abs Immat Gran (auto) Absolute Neuts (auto) Absolute Nucleated RBC Nucleated RBC % (auto) Sodium 140 Potassium 4.0 Chloride 105 Carbon Dioxide 27 Anion Gap 12 BUN 12 Creatinine 0.70 Estim Creat Clear Calc 51.5 Estimated GFR > 60 Random Glucose Fasting Glucose 98 Calcium 9.1 Magnesium Total Bilirubin 1.9 H Direct Bilirubin AST 14 ALT 10 Alkaline Phosphatase 94 Total Protein 6.4 L Albumin 3.8 Triglycerides 80 Cholesterol 137 LDL Cholesterol, Calc 72 HDL Cholesterol 49 Urine Color Urine Appearance Urine pH Ur Specific [place] Urine Protein Urine Glucose (UA) Urine Ketones Urine Blood Urine Nitrite Ur Leukocyte Esterase Salicylates Urine Opiates Screen Urine Fentanyl Screen Acetaminophen Ur Barbiturates Screen Valproic Acid Ur Phencyclidine Scrn Haloperidol Ur Amphetamines Screen U Benzodiazepines Scrn Urine Cocaine Screen U Marijuana (THC) Screen Ethyl Alcohol COVID-19 (YMRIAM) COVID-19 Clin Com DS: Summary Hospital Course Hospital Course: Ms. Kohli is a 77 year-old woman with hx of schizophrenia. Pt was recently discharged from [facility] after treatment for psychosis and paranoia. She received Abilify Maintena 400mg IM q28 on 06/19, due for second IM on 07/19. She was also discharged on haldol 5mg po daily- which most likely pt was not taking in the community. Per [facility] crisis report, pt has declined letting ACCS and VNA come to her house. [facility] services with [facility] were closed due to pt declining to have this service. On the unit, pt presents as pleasant. She reports she does not agree with court order for antipsychotics. She continues to report that she does not have a mental illness. She denies SI/HI. She does not present as overly paranoid or suspicious other than lack of insight into her mental illness and need for treatment. Pt reports she feels calm. She reports sleep is good. She reports she signed a 3 day and hopes to go back home soon. She denies VH/AH. No overt signs of psychosis. Past Psychiatric History: Inpatient: S1 07/02/2023 [facility]; 11/04/2020 [facility]; 07/19/2017 & 04/2017 [place]; [facility]; 2007 [facility]. Pt at [facility] from [id number]. HOSPITAL COURSE On the unit, pt was admitted on a CV, placed on 15 minutes checks for safety. 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 Pt this time actually presents much calmer and at baseline in that she is much less paranoid, agitated or combative. She is pleasant on appraoch but does not have insight into her mental illness and need for treatment. She received Abilify maintaina 400mg IM on 07/18, which was when she was due for second injection. She was restarted on haldol 5mg po daily which probably she was not taking in the community. She also was restarted on propanolol for tremors. On the unit, pt was pleasant and cooperative. She did signs 3 day. She denied suicidal or homicidal ideation. There were no incidences of disruptive behaviors nor need for restraints. She still does not think she has mental illness but accepted the fact that antipsychotics are court mandated. Any attempt to reflect on fact that she is doing better thanks to her antipsychotic medications, she did not think it was due to medications but her own ability to calm down. She attended assigned groups. No signs of imminent harm to self or others. She was discharged at time when 3 day was up as there was not concern in terms of imminent harm to self or others and pt did not present as gravely disable. Status at Discharge Cognitive/behavioral status at discharge: Pt with bright, non labile affect. No SI/HI. Less paranoid ideas but residual s/s noted as she reports neighbors stealing from her and suspiciousness about medications. No aggression towards self or others. Pt pleasant on approach. Functional status at discharge: independent ambulation Overall status at discharge: patient is progressing back to baseline Time Spent with Patient Time attestation: Total time managing care of this patient today __35__ minutes. Time spent: Greater than 30 minutes Discharge Plan Discharge Anticipated Discharge Date/Time: 07/20/23 10:24 Patient Disposition: Home, Self-Care Discharge Diagnosis: schizophrenia [facility] [Other] - 07/20/23 (Your outreach services will resume upon dicharge.) Maryjane Worley [facility] [Other] - 09/12/23 1:00 pm (Your next appointment with Maryjane Worley is 09/12/23 at 1PM. ) [facility] [Other] - 07/21/23 ([facility]NA to follow up with you after discharge. They will start on Sunday07/21/23 and new nurse has been requested. ) Discharge Medications: New haloperidol 5 mg Tablet 5 mg PO DAILY Qty: 30 0RF propranolol 10 mg Tablet 10 mg PO BID Qty: 60 0RF Protocol: Hold for SBP/HR < HOLD for SBP < : 90 HOLD for HR < : 60 Abilify Maintena 400 mg Suspension,Extended Rel Syring 400 mg IM Q30D Qty: 1 0RF Discontinued propranolol 10 mg tablet 10 mg PO BID divalproex 500 mg tablet extended release 24 hr 500 mg PO QPM ziprasidone HCl 60 mg capsule 60 mg PO DAILY aripiprazole 30 mg tablet 30 mg PO DAILY Discharge Orders: Discharge Order (Routine); Ordered 07/20/23 Ordered By: Tiana Fischer Diet: Regular diet Activity on Discharge: As tolerated Stand Alone Forms: Patient Portal Discharge page Care Plan Goals: Maintain mood NO SI/HI No aggression towards self or others Less paranoid ideas Less AH/VH Health Concerns: Follow up with PCP Plan of Treatment: 1. Take medications as prescribed 2. Go to nearest ED or call 911 in event of emergency Assessment: Pt with less paranoid ideas. No aggression towards self or others. NO SI/HI. Sleeping and eating well. No insight into mental illness and need for treatment.
[2023-07-24 23:29] LABS: Haloperidol <1 ng/mL (5-15)
== END 2023-07-20 11:50 | disposition home or self-care (01) | DRG 885 ==
LOC: HO.ED 07-17 07:47 → HO.PGERI 07-17 13:17
PROVIDERS: Physician Assistant; Admitting Provider Psychiatry & Neurology Psychiatry; Emergency Provider Emergency Medicine; Visit Provider Psychiatry & Neurology Psychiatry
DX: F20.0 Paranoid schizophrenia (principal); Z23 Encounter for immunization; Z20.822 Contact with and (suspected) exposure to COVID-19; Z91.148 Patient's other noncompliance with medication regimen for other reason; Z79.899 Other long term (current) drug therapy
CPT/HCPCS: 36415; 80048; 80053; 80061; 80076; 80143; 80164; 80173; 80179; 80307; 81003; 83735; 85025; 87635; 90686; 99285; J0401

== ENCOUNTER → 2023-07-17 13:11 | Outpatient (BNV) | payer MEDICARE, SELFPAY | PROVIDERS: Admitting Provider Psychiatry & Neurology Psychiatry; Emergency Provider Emergency Medicine; Visit Provider Social Worker | DX: F20.0 Paranoid schizophrenia (principal) | CPT/HCPCS: 90792; 99231; 99239 ==

== ENCOUNTER 2023-08-28 12:12 | Inpatient (IN) | payer MEDICARE, SELFPAY ==
--- NOTE | 2023-08-28 12:20 | MHC.CARE ---
Pt was seen by Tyler in community; pt is currently on section 12 and has been refusing to take medications. Pt was due to get Abilify injection on 08/25/23 and refused. She was assessed by N and placed on section 12, disposition was for inpatient psychiatric admission. ?N to fax over assessment when completed.
[2023-08-28 12:21] VITALS: BP 148/86; BP 181/58; PULSE 104; PULSE 86; RESP 16; TEMP 36.6; O2SAT 94; O2SAT 95; BMI 27.2
[2023-08-28 13:24] LABS: MANUAL DIFF FLAG NO
[2023-08-28 13:26] LABS: Basophils Percent Auto 0.5 % (0-2); Eosinophils Percent Auto 0.3 % (0-4); Hematocrit 41.9 % (37.0-47.0); Hemoglobin 13.9 g/dl (12.0-16.0); Imm Gran Abs Auto 0.03 X10*3/uL (0.00-0.03); Imm Gran Pct Auto 0.3 % (0.0-0.4); Lymphocytes Absolute Auto 0.7 X10*3/uL (1.2-4.9); Lymphocytes Percent Auto 7.9 % (20-40); Mean Corpuscular HGB Conc 33.2 g/dl (31.0-35.0); Mean Corpuscular Hemoglobin 29.4 pg (27.0-33.0); Mean Corpuscular Volume 88.6 fL (80.0-98.0); Mean Platelet Volume 11.7 fL (9.4-12.3); Monocytes Absolute Auto 0.6 X10*3/uL (0.1-1.2); Monocytes Percent Auto 6.4 % (2-11); Neutrophils Absolute Auto 7.4 x10*3/uL (2.0-8.3); Neutrophils Percent Auto 84.6 % (45-73); Platelet Count 220 X10*3/uL (160-400); Red Blood Count 4.73 X10*6/uL (4.20-5.50); White Blood Count 8.8 X10*3/uL (4.8-10.8)
--- NOTE | 2023-08-28 13:26 | PC.NURSE ---
patient reports she would not like an EKG stating My heart is fine thank you . patient did consent to bloodwork though. Patient is currently pacing back and forth in pd, offers no complaints, unwilling to eat lunch.
[2023-08-28 13:28] VITALS: RESP 14
--- NOTE | 2023-08-28 13:36 | ED_ITS ---
HPI - Psych General Chief Complaint: Psychiatric Symptoms Stated Complaint: SEC 12 BY [facility]N Time Seen by Provider: 08/28/23 13:33 Source: patient, EMS and RN notes reviewed Mode of arrival: EMS Limitations: no limitations History of Present Illness HPI Narrative: 77 year old female with pmhx significant for schizophrenia presents to the ED today via EMS on section 12 from community for agitation, verbal aggression and medication noncompliance. Per EMS, patient is on a [place] order for her ability and haldol however has been refusing to take these medications. Denies ilicit drug or etoh use. Denies SI/HI. Patient denies any physical complaints at present. Related Data Previous Rx's Medication Instructions Recorded aripiprazole 400 mg suspension, 400 mg IM Q30D #1 ea 07/20/23 extended rel.intramuscular syringe (Tiffanie Herra) haloperidol 5 mg tablet 5 mg PO DAILY #30 tabs 07/20/23 propranolol 10 mg tablet 10 mg PO BID #60 tabs 07/20/23 Allergies Allergy/AdvReac Type Severity Reaction Status Date / Time aspirin Allergy Hives Verified 05/31/23 16:21 Review of Systems 2 Review of Systems: Yes all other systems are reviewed and are negative PMFSH Past Medical History Attestation statement: The following information was validated with the patient. Source: old records reviewed and nursing notes reviewed Social History Social History Household Members: None Housing: House Do you presently have visiting nurse or other home services: Yes (Gene Almeida) Patient Tobacco Use Status: Never used Tobacco Smoked in Last 30 Days: No Use of substances other than those prescribed or required for medical reasons: No Last Used Substance: Unknown Currently Displaying Signs/Symptoms of Drug Intoxication Withdrawal: No Any prior treatment program specific to substance use: No Have you been hit, kicked, punched, or otherwise hurt by someone within the past year? If so, by whom?: No Do you feel safe in your current relationship?: No Current Relationship Is there a partner from a previous relationship who is making you feel unsafe now?: No Are you made to feel afraid or neglected: No Advance Directives: No Advance Directives Information Provided: No Do you have thoughts of harming others: None Do you have a plan to hurt others: No Plan Recently lost weight without trying: No Eating poorly because of decreased appetite: No Nutrition Risks: No Nutritional Risk Patient : No : No Poor oral hygiene: No service: No Sexual orientation: Straight/Heterosexual Physical Exam 2 Vital Signs: Vital Signs: Last Vital Signs Temp 98.2 F 08/29/23 08:00 Pulse 76 08/29/23 08:00 Resp 18 08/29/23 08:00 BP 159/70 H 08/29/23 08:00 Pulse Ox 96 08/29/23 08:00 O2 Del Method Room Air 08/29/23 08:00 BMI result Body Mass Index 27.2 Vital signs stable Const: Other: + Patient pacing back and forth General: cooperative, no acute distress, alert and awake O rientation/consciousness: patient oriented x3 Limitations: no limitations HEENT: Head: Yes normal to inspection Ears: hearing grossly normal bilaterally Eyes: General: appearance normal, both eyes and all related structures Neck: Neck: Yes normal visual inspection Resp: Effort & Inspection: normal respiratory effort Auscultation: clear to auscultation bilaterally Cardio: Rate: regular rate Rhythm: regular rhythm Skin: General skin exam: no rashes or lesions noted Neuro: General: patient oriented x3, gait normal and moves all extremities Cranial nerves: Yes CN's II-XII intact bilaterally Extrem: General: Yes normal to inspection Psych: Appearance: grossly normal Speech and movement: Psychomotor agitation in speech present Course Course Course Narrative: 1433-- CBC without leukocytosis or anemia. Chemistry without acute electrolyte abnormality requiring intervention. Ethanol undetectable. COVID negative. > Patient refusing urinalysis and EKG at this time. Will revisit. Medications Administered Generic Name Dose Route Start Last Admin Trade Name Raya PRN Reason Stop Dose Admin Acetaminophen 650 mg 08/28/23 18:06 08/28/23 21:10 Acetaminophen 325 Mg Tablet PO 650 mg Q6H PRN Administration Headache/Pain Mild Scale (1-3) Haloperidol 5 mg 08/29/23 09:00 08/29/23 08:22 Haloperidol 5 Mg Tablet PO 5 mg DAILY MARQUIS Administration Ibuprofen 400 mg 08/29/23 13:30 08/29/23 20:46 Ibuprofen 400 Mg Tablet PO 400 mg Q6H MARQUIS Administration Propranolol HCl 10 mg 08/28/23 21:00 08/29/23 20:45 Propranolol Hcl 10 Mg Tablet PO 10 mg BID MARQUIS Administration Protocol Medical Decision Making Medical Decision Making [facility] Narrative: 77 year old female with pmhx significant for schizophrenia presents to the ED today via EMS on section 12 from community for agitation, verbal aggression and medication noncompliance. VSS. Physical exam unremarkable. Plan at this time is medical clearance and [facility] admission. Differential Diagnosis Differential Diagnoses: The differential diagnosis associated with the presentation includes As above. Admission/Observation Consideration of admission/observation: Escalation of care including admission/observation considered Patient to be admitted to [facility]. Lab Data [facility] Lab Attestation statement: I reviewed the patient's lab results. As above. 08/28/23 13:19 08/28/23 13:19 Labs: Lab Results 08/28/23 08/28/23 Range/Units 13:19 14:59 WBC 8.8 (4.8-10.8) X10*3/uL RBC 4.73 (4.20-5.50) X10*6/uL Hgb 13.9 (12.0-16.0) g/dl Hct 41.9 (37.0-47.0) % MCV 88.6 (80.0-98.0) fL MCH 29.4 (27.0-33.0) pg MCHC 33.2 (31.0-35.0) g/dl RDW 14.0 (11.0-16.0) % Plt Count 220 (160-400) X10*3/uL MPV 11.7 (9.4-12.3) fL Immature Gran % (Auto) 0.3 (0.0-0.4) % Neut % (Auto) 84.6 H (45-73) % Lymph % (Auto) 7.9 L (20-40) % [place] % (Auto) 6.4 (2-11) % Eos % (Auto) 0.3 (0-4) % Baso % (Auto) 0.5 (0-2) % Lymph # (Auto) 0.7 L (1.2-4.9) X10*3/uL [place] # (Auto) 0.6 (0.1-1.2) X10*3/uL Eos # (Auto) 0.0 (0.0-0.4) X10*3/uL Baso # (Auto) 0.0 (0.0-0.2) X10*3/uL Abs Immat Gran (auto) 0.03 (0.00-0.03) X10*3/uL Absolute Neuts (auto) 7.4 (2.0-8.3) x10*3/uL Absolute Nucleated RBC 0.000 (0.0-0.012) X10*3/uL Nucleated RBC % (auto) 0.0 (0.0-0.2) /100WBC Sodium 138 (135-145) mmol/L Potassium 3.9 (3.3-5.1) mmol/L Chloride 103 (96-108) mmol/L Carbon Dioxide 28 (22-29) mmol/L Anion Gap 11 L (12-20) BUN 8 L (9-16) mg/dL Creatinine 0.83 (0.5-1.4) mg/dL Estim Creat Clear Calc 43.1 Estimated GFR > 60 Random Glucose 89 (60-115) mg/dL Calcium 9.1 (8.4-10.2) mg/dL Total Bilirubin 1.5 H (0.0-1.0) mg/dL AST 18 (5-31) U/L ALT 11 (0-31) U/L Alkaline Phosphatase 103 (39-117) U/L Total Protein 7.0 (6.5-8.0) g/dL Albumin 4.1 (3.5-5.0) g/dL Urine Color Yellow Urine Appearance Clear Urine pH 5.5 (5.0-9.0) Ur Specific [place] <= 1.005 (1.005-1.025) Urine Protein Negative (Neg-Trace) mg/dL Urine Glucose (UA) Negative (Negative) mg/dL Urine Ketones Negative (Negative) mg/dL Urine Blood Negative (Negative) Urine Nitrite Negative (Negative) Ur Leukocyte Esterase Trace H (Negative) Urine RBC 0-2 (0-2) /HPF Urine WBC 0-5 (0-5) /HPF Ur Squamous Epith Cells 0-2 (0-2) /HPF Urine Bacteria None Seen (None Seen) Hyaline Casts 3-5 (0-2) /LPF Urine Opiates Screen Not Detected (Not Detect) Urine Fentanyl Screen Not Detected (Not Detect) Ur Barbiturates Screen Not Detected (Not Detect) Ur Phencyclidine Scrn Not Detected (Not Detect) Ur Amphetamines Screen Not Detected (Not Detect) U Benzodiazepines Scrn Not Detected (Not Detect) Urine Cocaine Screen Not Detected (Not Detect) U Marijuana (THC) Screen Not Detected (Not Detect) Ethyl Alcohol < 10 mg/dL COVID-19 (MYRIAM) Negative (Negative) COVID-19 Clin Com See Note Independent Historian Clinical information obtained from an independent historian. History obtained from or confirmed by: EMS External Record Review External record reviewed: Inpatient record, Office record, Outpatient record, Prior outpatient labs, Prior outpatient radiology, Primary care record and Outside ED record Chronic Conditions Patient?s care impacted by: Other (schizophrenia) Critical Care Time Critical Care Time Critical Care Time: No Discharge Plan Discharge Clinical Impression: Acute exacerbation of chronic paranoid schizophrenia Patient Disposition: Admitted As Inpatient Interventions: [place]-Suicide Risk Severity Scale Last Done: 08/29/23 10:44 Admission Worksheet (ED) Last Done: 08/28/23 17:54 Discharge Date/Time: 08/28/23 17:59
[2023-08-28 13:38] LABS: COVID-19 Test Negative (Negative); IDNOW Serial# 08D9AD1C
[2023-08-28 13:41] LABS: Alanine Aminotransferase 11 U/L (0-31); Albumin Level 4.1 g/dL (3.5-5.0); Alkaline Phosphatase 103 U/L (39-117); Anion Gap 11 (12-20); Aspartate Amino Transferase 18 U/L (5-31); Bilirubin Total 1.5 mg/dL (0.0-1.0); Blood Urea Nitrogen 8 mg/dL (9-16); Calcium 9.1 mg/dL (8.4-10.2); Carbon Dioxide 28 mmol/L (22-29); Chloride 103 mmol/L (96-108); Creatinine Clr Calc Pharmacy 43.1; Estimated Glomerular Filt Rate > 60; Ethanol < 10 mg/dL; Glucose Random 89 mg/dL (60-115); Potassium 3.9 mmol/L (3.3-5.1); Sodium 138 mmol/L (135-145)
[2023-08-28 14:53] VITALS: PULSE 71; RESP 16; O2SAT 97
[2023-08-28 15:06] LABS: Appearance Urine Clear; Color Urine Yellow; Glucose Urine UA Negative (Negative); Leukocyte Esterase Urine Trace (Negative); Nitrite Urine Negative (Negative); PH 5.5 (5.0-9.0); Specific Gravity - Urine <= 1.005 (1.005-1.025); UMIC TRIGGER UACC YES; Urine Blood Negative (Negative); Urine Ketones Negative (Negative); Urine Protein Negative (Neg-Trace)
[2023-08-28 15:09] LABS: Bacteria Urine None Seen (None Seen); RBC Urine 0-2 /HPF (0-2); Squamous Epithelial Cell Urine 0-2 /HPF (0-2); WBC Urine 0-5 /HPF (0-5)
[2023-08-28 15:19] LABS: Amphetamine Screen Urine Not Detected (Not Detect); Barbiturates, Urine Not Detected (Not Detect); Benzodiazepines Screen Urine Not Detected (Not Detect); Cannabinoid Screen Urine Not Detected (Not Detect); Cocaine Screen Urine Not Detected (Not Detect); Fentanyl, urine Not Detected (Not Detect); Opiate Screen Urine Not Detected (Not Detect); Phencyclidine Screen Urine Not Detected (Not Detect)
--- NOTE | 2023-08-28 16:48 | PC.NURSE ---
report given to Maris RIOS
--- NOTE | 2023-08-28 17:44 | PHA.MEDREC ---
Pharmacy Consult ? Medication Reconciliation Pharmacy has completed the medication reconciliation. Reviewed med rec done by nursing
[2023-08-28 18:10] VITALS: BP 190/79; PULSE 74; RESP 20; TEMP 36.6; O2SAT 98
[2023-08-28 18:21] VITALS: BMI 27.4
--- NOTE | 2023-08-28 18:46 | PC.ADMIT ---
Pt. escorted by this RN and security onto unit from ED pod at 17:53 via WC. A & O X 3. Aware of situation but has poor insight and is delusional about it. She was recently discharged from and is familiar with unit and staff. After her recent discharge she would not allow Flakito BRAN to enter her home to comply with court ordered medication. [facility] crisis assessed pt. in home and found her to be in need of IPLOC for decompensation due to refusal of meds. Elo ambulated independently, performs her own ADLs, and is continent. She has a red raised area at the nape of her neck which she states is a reaction to a necklace she wore. She signed a CV upon admission and states she will sign a 3-day notice tomorrow. She declined to sign releases for her Dr. or pharmacy.
[2023-08-28] MEDS: Propranolol HCL 10 MG TABLET PO (20:23)
[2023-08-28] MEDS: Acetaminophen 325 MG TABLET 650 MG PO (21:10)
[2023-08-29 08:00] VITALS: BP 159/70; PULSE 76; RESP 18; TEMP 36.8; O2SAT 96
[2023-08-29] MEDS: HaloperidoL 5 MG TABLET PO (08:22)
[2023-08-29] MEDS: Propranolol HCL 10 MG TABLET PO ×2 (08:22→20:45)
--- NOTE | 2023-08-29 12:50 | P.HPPS_ITS ---
HPI Date of Service: 08/29/23 Chief Complaint: Psychosis Sources of Information: patient interviewed, chart reviewed and crisis/core team assessment reviewed HPI Subjective Notes: Valadez Warning and Conditional Voluntary Narrative: The patient is a 77-year-old female, chronically mentally ill with a diagnosis of schizoaffective disorder with several ancillary services in the community, very well known by this team since she had been admitted twice in the last 2 years. According to the crisis assessment the patient refused to take her medications at their court order and she was brought to the emergency room. She was assessed by crisis and transferring to this facility for psychiatric stabilization. On intake, the patient reported that her court order had been changed and she does not have to take medications. This is the same presentation that she did on the last time. Even though that the patient refused to take her injection on the emergency room, the patient was pleasant cooperative with good eye contact and with chronic delusions. She was able to contract for safety. At this moment we need to gather collateral information she agreed to sign consents to release information with her outpatient providers. Past Psychiatric History: Inpatient: [place] [facility] [place] 11/04/2020 [facility]; 07/19/2017 & 04/2017 [facility]; [facility]; [facility]. Pt at [facility] from 2010- 2012. OP: Maryjane Worley [facility]- [place]el ([phone]); Issac Martin [phone]/ [phone] Past medication trials: haldol, geodone, abilify maintana. depakote. Medical Evaluation Reviewed: Yes PMFSH Family History: Denies Social History: The patient is chronically mentally ill she lives in the community with ancillary services. Substance History: Denies Trauma History: Denies Diagnostics Vital Signs (24Hr): Vital Signs - 24 hr 08/28/23 13:28 08/28/23 14:53 08/28/23 18:10 Temperature 97.8 F Pulse Rate 71 74 Respiratory Rate 14 16 20 Blood Pressure 190/79 H Pulse Oximetry 97 98 Oxygen Delivery Method Room Air Room Air 08/29/23 08:00 Temperature 98.2 F Pulse Rate 76 Respiratory Rate 18 Blood Pressure 159/70 H Pulse Oximetry 96 Oxygen Delivery Method Room Air BMI result Body Mass Index 27.4 Labs 08/28/23 13:19 08/28/23 13:19 Labs: Laboratory Results - last 48 hr 08/28/23 08/28/23 13:19 14:59 WBC 8.8 RBC 4.73 Hgb 13.9 Hct 41.9 MCV 88.6 MCH 29.4 MCHC 33.2 RDW 14.0 Plt Count 220 MPV 11.7 Immature Gran % (Auto) 0.3 Neut % (Auto) 84.6 H Lymph % (Auto) 7.9 [place] % (Auto) 6.4 Eos % (Auto) 0.3 Baso % (Auto) 0.5 Lymph # (Auto) 0.7 L [place] # (Auto) 0.6 Eos # (Auto) 0.0 Baso # (Auto) 0.0 Abs Immat Gran (auto) 0.03 Absolute Neuts (auto) 7.4 Absolute Nucleated RBC 0.000 Nucleated RBC % (auto) 0.0 Sodium 138 Potassium 3.9 Chloride 103 Carbon Dioxide 28 Anion Gap 11 L BUN 8 L Creatinine 0.83 Estim Creat Clear Calc 43.1 Estimated GFR > 60 Random Glucose 89 Calcium 9.1 Total Bilirubin 1.5 H AST 18 ALT 11 Alkaline Phosphatase 103 Total Protein 7.0 Albumin 4.1 Urine Color Yellow Urine Appearance Clear Urine pH 5.5 Ur Specific [place] <= 1.005 Urine Protein Negative Urine Glucose (UA) Negative Urine Ketones Negative Urine Blood Negative Urine Nitrite Negative Ur Leukocyte Esterase Trace H Urine RBC 0-2 Urine WBC 0-5 Ur Squamous Epith Cells 0-2 Urine Bacteria None Seen Hyaline Casts 3-5 Urine Opiates Screen Not Detected Urine Fentanyl Screen Not Detected Ur Barbiturates Screen Not Detected Ur Phencyclidine Scrn Not Detected Ur Amphetamines Screen Not Detected U Benzodiazepines Scrn Not Detected Urine Cocaine Screen Not Detected U Marijuana (THC) Screen Not Detected Ethyl Alcohol < 10 COVID-19 (MYRIAM) Negative COVID-19 Clin Com See Note Meds/Allergies Allergies Allergies Allergy/AdvReac Type Severity Reaction Status Date / Time aspirin Allergy Hives Verified 05/31/23 16:21 Mental Status Exam Mental Status Exam Patient Appearance: Appropriate Patient Orientation: Person, Place and Situation Level of Consciousness: Awake and Appropriate Patient Behavior: Guarded and Passive Mood Description: Withdrawn Affect Description: Calm Patient Cognition Impaired: Yes Ability to Follow Directions: Good Speech Pattern: Clear Hallucinations: None Delusions: Not Present Thought Process: Linear Thought Content: positive for Circumstantial Judgement: Fair Assessment & Plan Assessment & Plan (1) Schizophrenia, paranoid, chronic with acute exacerbation: Status: Acute Code(s): F20.0 - Paranoid schizophrenia Plan The patient is an elderly female with a history of schizophrenia admitted for noncompliance of treatment in the community. The patient has a court ordered to follow treatment. At this moment he denies psychotic symptoms. Plan 1. Gather collateral information. 2. Continue medications as per court order. 3. Reassessment with results. Patient educated on: diagnosis and medical condition Reason for continued inpatient stay Substantial Risk for: inability to function, rapid decompensation and med/psych decompensation Statement Statement: I have reviewed the history and physical and performed a pertinent examination on my patient. No changes have occurred unless specified. If the History and Physical was not performed prior to admission, the Hospitalist's service will be consulted for completing the admission physical. Time Spent With Patient Time: Total time managing care of this patient today __45__ minutes.
--- NOTE | 2023-08-29 13:14 | P.HPPS_ITS ---
HPI Chief Complaint: Psychosis HPI Past Psychiatric History: Inpatient: S1 07/02/2023 [facility] [place]; 11/04/2020 [facility]; 07/19/2017 & 04/2017 [facility]; [facility]; 2007 [facility]. Pt at [facility] from 2010- 2012. OP: Maryjane Worley [facility]- [place] [facility] ([phone]); Issac Martin [phone]/ [phone] Past medication trials: haldol, geodone, abilify maintana. depakote. Diagnostics Vital Signs (24Hr): Vital Signs - 24 hr 08/28/23 13:28 08/28/23 14:53 08/28/23 18:10 Temperature 97.8 F Pulse Rate 71 74 Respiratory Rate 14 16 20 Blood Pressure 190/79 H Pulse Oximetry 97 98 Oxygen Delivery Method Room Air Room Air 08/29/23 08:00 Temperature 98.2 F Pulse Rate 76 Respiratory Rate 18 Blood Pressure 159/70 H Pulse Oximetry 96 Oxygen Delivery Method Room Air BMI result Body Mass Index 27.4 Labs 08/28/23 13:19 08/28/23 13:19 Labs: Laboratory Results - last 48 hr 08/28/23 08/28/23 13:19 14:59 WBC 8.8 RBC 4.73 Hgb 13.9 Hct 41.9 MCV 88.6 MCH 29.4 MCHC 33.2 RDW 14.0 Plt Count 220 MPV 11.7 Immature Gran % (Auto) 0.3 Neut % (Auto) 84.6 H Lymph % (Auto) 7.9 L [place] % (Auto) 6.4 Eos % (Auto) 0.3 Baso % (Auto) 0.5 Lymph # (Auto) 0.7 L [place] # (Auto) 0.6 Eos # (Auto) 0.0 Baso # (Auto) 0.0 Abs Immat Gran (auto) 0.03 Absolute Neuts (auto) 7.4 Absolute Nucleated RBC 0.000 Nucleated RBC % (auto) 0.0 Sodium 138 Potassium 3.9 Chloride 103 Carbon Dioxide 28 Anion Gap 11 L BUN 8 L Creatinine 0.83 Estim Creat Clear Calc 43.1 Estimated GFR > 60 Random Glucose 89 Calcium 9.1 Total Bilirubin 1.5 H AST 18 ALT 11 Alkaline Phosphatase 103 Total Protein 7.0 Albumin 4.1 Urine Color Yellow Urine Appearance Clear Urine pH 5.5 Ur Specific [place] <= 1.005 Urine Protein Negative Urine Glucose (UA) Negative Urine Ketones Negative Urine Blood Negative Urine Nitrite Negative Ur Leukocyte Esterase Trace H Urine RBC 0-2 Urine WBC 0-5 Ur Squamous Epith Cells 0-2 Urine Bacteria None Seen Hyaline Casts 3-5 Urine Opiates Screen Not Detected Urine Fentanyl Screen Not Detected Ur Barbiturates Screen Not Detected Ur Phencyclidine Scrn Not Detected Ur Amphetamines Screen Not Detected U Benzodiazepines Scrn Not Detected Urine Cocaine Screen Not Detected U Marijuana (THC) Screen Not Detected Ethyl Alcohol < 10 COVID-19 (MYRIAM) Negative COVID-19 Clin Com See Note Meds/Allergies Allergies Allergies Allergy/AdvReac Type Severity Reaction Status Date / Time aspirin Allergy Hives Verified 05/31/23 16:21 Assessment & Plan Statement Statement: I have reviewed the history and physical and performed a pertinent examination on my patient. No changes have occurred unless specified. If the History and Physical was not performed prior to admission, the Hospitalist's service will be consulted for completing the admission physical. Time Spent With Patient Time: Total time managing care of this patient today ____ minutes.
[2023-08-29] MEDS: Ibuprofen 400 MG TABLET PO ×2 (13:26→20:46)
[2023-08-29 18:00] VITALS: BP 106/63; PULSE 83; RESP 17; TEMP 36; O2SAT 96
[2023-08-30 07:00] VITALS: BMI 27.7
[2023-08-30 07:55] VITALS: BP 110/59; PULSE 74; RESP 16; TEMP 36.6; O2SAT 98
[2023-08-30] MEDS: HaloperidoL 5 MG TABLET PO (09:02)
[2023-08-30] MEDS: Propranolol HCL 10 MG TABLET PO (09:02)
[2023-08-30] MEDS: Ibuprofen 400 MG TABLET PO (09:02)
--- NOTE | 2023-08-30 16:41 | HO.PSYCHPN ---
Subjective Subjective Date of Service: 08/30/23 Reason For Visit: Psychosis Subjective Notes: Conditional Voluntary Interim History: The nursing staff reported the patient had been pacing in the hallway, compliant with treatment. She slept well. She has signed a 3 day notice. On interview the patient reports that she does not need to be here and that is why she signed a 3 day notice. Chronically paranoid and stating that her court order was changed she does not need to take medications but she had been compliant in the unit. Mental Status Exam Mental Status Exam Patient Appearance: Appropriate Patient Orientation: Person and Situation Level of Consciousness: Awake and Appropriate Patient Behavior: Guarded and Passive Mood Description: Withdrawn Affect Description: Constricted Patient Cognition Impaired: Yes Ability to Follow Directions: Good Speech Pattern: Clear Hallucinations: None Delusions: Paranoid Ideation and Ideas of Reference Thought Process: Distracted Thought Content: positive for [place] and positive for Circumstantial Judgement: Fair Diagnostics Vital Signs (24Hr): Vital Signs - 24 hr 08/29/23 18:00 08/30/23 07:55 Temperature 96.8 F 97.9 F Pulse Rate 83 74 Respiratory Rate 17 16 Blood Pressure 106/63 110/59 L Pulse Oximetry 96 98 Oxygen Delivery Method Room Air Room Air BMI result Body Mass Index 27.7 Labs 08/28/23 13:19 08/28/23 13:19 Medications Medications Current Medications Acetaminophen (Acetaminophen 325 Mg Tablet) 650 mg PO Q6H PRN PRN Reason: Headache/Pain Mild Scale (1-3) Last Admin: 08/28/23 21:10 Dose: 650 mg Al Hydroxide/Mg Hydroxide (Magnesium Hydrox/Alum Hydrox 30 Ml Oral.Susp) 30 ml PO Q6H PRN PRN Reason: Heartburn/Nausea Haloperidol (Haloperidol 5 Mg Tablet) 5 mg PO DAILY [facility] Last Admin: 08/30/23 09:02 Dose: 5 mg Hydroxyzine HCl (Hydroxyzine Hcl 25 Mg Tablet) 25 mg PO Q6H PRN PRN Reason: Anxiety Ibuprofen (Ibuprofen 400 Mg Tablet) 400 mg PO Q6H PRN PRN Reason: Pain, Moderate(Pain Scale 4-6) Ibuprofen (Ibuprofen 400 Mg Tablet) 400 mg PO Q6H [facility] Last Admin: 08/30/23 13:37 Dose: Not Given Magnesium Hydroxide (Milk Of Magnesia 30 Ml Oral.Susp) 30 ml PO DAILY PRN PRN Reason: Constipation Propranolol HCl (Propranolol Hcl 10 Mg Tablet) 10 mg PO BID [facility]; Protocol Last Admin: 08/30/23 09:02 Dose: 10 mg Trazodone HCl (Trazodone Hcl 50 Mg Tablet) 50 mg PO BEDTIME MRX1 PRN PRN Reason: Insomnia Allergies Allergies Allergy/AdvReac Type Severity Reaction Status Date / Time aspirin Allergy Hives Verified 05/31/23 16:21 Assessment & Plan Assessment & Plan (1) Schizophrenia, paranoid, chronic with acute exacerbation: Status: Acute Code(s): F20.0 - Paranoid schizophrenia Plan The patient is an elderly female with a history of schizophrenia admitted for noncompliance of treatment in the community. The patient has a court ordered to follow treatment. At this moment he denies psychotic symptoms. Plan 1. Gather collateral information. 2. Continue medications as per court order. 3. Reassessment with results. Reason for continued inpatient stay Substantial Risk for: inability to function, rapid decompensation and med/psych decompensation Time Spent With Patient Time: Total time managing care of this patient today __20__ minutes.
[2023-08-30 18:00] VITALS: RESP 16
[2023-08-31 08:05] VITALS: BP 144/66; PULSE 72; RESP 18; TEMP 36.9; O2SAT 96
[2023-08-31] MEDS: Propranolol HCL 10 MG TABLET PO ×2 (08:37→21:07)
[2023-08-31] MEDS: HaloperidoL 5 MG TABLET PO (08:37)
[2023-08-31] MEDS: Ibuprofen 400 MG TABLET PO ×3 (08:37→21:06)
--- NOTE | 2023-08-31 10:44 | PC.NURSE ---
Spoke with Issac Owen at [facility], she reported pt has only received Abilify Maintena [place] [facility] [place]. Pharmacy at [facility] [place] reports pt's last injection of Ability Maintena was on 07/18, while she was inpatient.
[2023-08-31] MEDS: ARIPiprazole ER 400 MG SUSER.SYR IM (11:06)
--- NOTE | 2023-08-31 12:01 | HO.PSYCHPN ---
Subjective Subjective Date of Service: 08/31/23 Reason For Visit: Psychosis Subjective Notes: Conditional Voluntary and 3 Day Interim History: The nursing staff reported she was quiet she had good appetite and she refused medications in the evening. She attended a few groups. The patient signed a 3 day notice and she wants to be discharged. We review the days of her last Abilify and it was on the last admission. I ordered to give her Abilify 400 mg IM monthly as per court ordered today. On interview I explained her that it is court order and she will be discharged next Sunday Mental Status Exam Mental Status Exam Patient Appearance: Well Grooomed and Appropriate Patient Orientation: Person and Situation Level of Consciousness: Awake and Appropriate Patient Behavior: Guarded and Passive Mood Description: Withdrawn Affect Description: Constricted Patient Cognition Impaired: Yes Ability to Follow Directions: Good Speech Pattern: Clear Hallucinations: None Delusions: Not Present Thought Process: Distracted and Evasive Thought Content: positive for [place] and positive for Circumstantial Judgement: Poor Diagnostics Vital Signs (24Hr): Vital Signs - 24 hr 08/30/23 18:00 08/31/23 08:05 Temperature 98.5 F Pulse Rate 72 Respiratory Rate 16 18 Blood Pressure 144/66 H Pulse Oximetry 96 Oxygen Delivery Method Room Air BMI result Body Mass Index 27.7 Labs 08/28/23 13:19 08/28/23 13:19 Medications Medications Current Medications Acetaminophen (Acetaminophen 325 Mg Tablet) 650 mg PO Q6H PRN PRN Reason: Headache/Pain Mild Scale (1-3) Last Admin: 08/28/23 21:10 Dose: 650 mg Al Hydroxide/Mg Hydroxide (Magnesium Hydrox/Alum Hydrox 30 Ml Oral.Susp) 30 ml PO Q6H PRN PRN Reason: Heartburn/Nausea Aripiprazole (Aripiprazole Er 400 Mg Suser.Syr) 400 mg IM Q30D [facility] Last Admin: 08/31/23 11:06 Dose: 400 mg Haloperidol (Haloperidol 5 Mg Tablet) 5 mg PO DAILY [facility] Last Admin: 08/31/23 08:37 Dose: 5 mg Hydroxyzine HCl (Hydroxyzine Hcl 25 Mg Tablet) 25 mg PO Q6H PRN PRN Reason: Anxiety Ibuprofen (Ibuprofen 400 Mg Tablet) 400 mg PO Q6H PRN PRN Reason: Pain, Moderate(Pain Scale 4-6) Ibuprofen (Ibuprofen 400 Mg Tablet) 400 mg PO Q6H [facility] Last Admin: 08/31/23 08:37 Dose: 400 mg Magnesium Hydroxide (Milk Of Magnesia 30 Ml Oral.Susp) 30 ml PO DAILY PRN PRN Reason: Constipation Propranolol HCl (Propranolol Hcl 10 Mg Tablet) 10 mg PO BID [facility]; Protocol Last Admin: 08/31/23 08:37 Dose: 10 mg Trazodone HCl (Trazodone Hcl 50 Mg Tablet) 50 mg PO BEDTIME MRX1 PRN PRN Reason: Insomnia Allergies Allergies Allergy/AdvReac Type Severity Reaction Status Date / Time aspirin Allergy Hives Verified 05/31/23 16:21 Assessment & Plan Assessment & Plan (1) Schizophrenia, paranoid, chronic with acute exacerbation: Status: Acute Code(s): F20.0 - Paranoid schizophrenia Plan The patient is an elderly female with a history of schizophrenia admitted for noncompliance of treatment in the community. The patient has a court ordered to follow treatment. At this moment he denies psychotic symptoms. Plan 1. Gather collateral information. 2. Continue medications as per court order. 3. Reassessment with results. 4. Abilify Maintena 400 mg IM today August 31. 5. Discharge next Sunday Reason for continued inpatient stay Substantial Risk for: inability to function, rapid decompensation and med/psych decompensation Time Spent With Patient Time: Total time managing care of this patient today _20___ minutes.
[2023-08-31 18:00] VITALS: BP 172/70; PULSE 66; RESP 18; TEMP 36.2; O2SAT 97
[2023-09-01 06:00] VITALS: BP 130/60; PULSE 73; RESP 18; TEMP 36.4; O2SAT 96
[2023-09-01] MEDS: Propranolol HCL 10 MG TABLET PO ×2 (08:06→20:35)
[2023-09-01] MEDS: Ibuprofen 400 MG TABLET PO ×3 (08:06→20:34)
[2023-09-01] MEDS: HaloperidoL 5 MG TABLET PO (08:09)
[2023-09-01 18:00] VITALS: BP 153/65; PULSE 78; RESP 18; TEMP 36.9; O2SAT 97
[2023-09-02 08:00] VITALS: BP 124/61; PULSE 63; RESP 18; TEMP 36.6; O2SAT 95
[2023-09-02] MEDS: Ibuprofen 400 MG TABLET PO ×3 (08:11→20:40)
[2023-09-02] MEDS: Propranolol HCL 10 MG TABLET PO ×2 (08:12→20:40)
[2023-09-02] MEDS: HaloperidoL 5 MG TABLET PO (08:12)
--- NOTE | 2023-09-02 12:06 | HO.PSYCHPN ---
Subjective Subjective Date of Service: 09/02/23 Reason For Visit: Psychosis Interim History: Late entry note for patient seen on 09/01; typewriter mechanic Met with patient; discussed with team Patient lying in bed on approach, awake and alert. Says she is good and denies any complaints her request. Staff reports patient has been calm today, no incidents. Mental Status Exam Mental Status Exam Patient Appearance: Well Grooomed and Appropriate Patient Orientation: Person and Situation Level of Consciousness: Awake and Appropriate Patient Behavior: Guarded and Passive Mood Description: Withdrawn Affect Description: Constricted Patient Cognition Impaired: Yes Ability to Follow Directions: Good Speech Pattern: Clear Hallucinations: None Delusions: Not Present Thought Process: Distracted and Evasive Thought Content: positive for [place] and positive for Circumstantial Judgement: Poor Diagnostics Vital Signs (24Hr): Vital Signs - 24 hr 09/01/23 18:00 09/02/23 08:00 Temperature 98.4 F 97.8 F Pulse Rate 78 63 Respiratory Rate 18 18 Blood Pressure 153/65 H 124/61 Pulse Oximetry 97 95 Oxygen Delivery Method Room Air Room Air BMI result Body Mass Index 27.7 Labs 08/28/23 13:19 08/28/23 13:19 Medications Medications Current Medications Acetaminophen (Acetaminophen 325 Mg Tablet) 650 mg PO Q6H PRN PRN Reason: Headache/Pain Mild Scale (1-3) Last Admin: 08/28/23 21:10 Dose: 650 mg Al Hydroxide/Mg Hydroxide (Magnesium Hydrox/Alum Hydrox 30 Ml Oral.Susp) 30 ml PO Q6H PRN PRN Reason: Heartburn/Nausea Aripiprazole (Aripiprazole Er 400 Mg Suser.Syr) 400 mg IM Q30D [facility] Last Admin: 08/31/23 11:06 Dose: 400 mg Haloperidol (Haloperidol 5 Mg Tablet) 5 mg PO DAILY [facility] Last Admin: 09/02/23 08:12 Dose: 5 mg Hydroxyzine HCl (Hydroxyzine Hcl 25 Mg Tablet) 25 mg PO Q6H PRN PRN Reason: Anxiety Ibuprofen (Ibuprofen 400 Mg Tablet) 400 mg PO Q6H PRN PRN Reason: Pain, Moderate(Pain Scale 4-6) Ibuprofen (Ibuprofen 400 Mg Tablet) 400 mg PO Q6H [facility] Last Admin: 09/02/23 08:11 Dose: 400 mg Magnesium Hydroxide (Milk Of Magnesia 30 Ml Oral.Susp) 30 ml PO DAILY PRN PRN Reason: Constipation Propranolol HCl (Propranolol Hcl 10 Mg Tablet) 10 mg PO BID [facility]; Protocol Last Admin: 09/02/23 08:12 Dose: 10 mg Trazodone HCl (Trazodone Hcl 50 Mg Tablet) 50 mg PO BEDTIME MRX1 PRN PRN Reason: Insomnia Allergies Allergies Allergy/AdvReac Type Severity Reaction Status Date / Time aspirin Allergy Hives Verified 05/31/23 16:21 Assessment & Plan Assessment & Plan (1) Schizophrenia, paranoid, chronic with acute exacerbation: Status: Acute Code(s): F20.0 - Paranoid schizophrenia Plan The patient is an elderly female with a history of schizophrenia admitted for noncompliance of treatment in the community. The patient has a court ordered to follow treatment. At this moment he denies psychotic symptoms. 09/01 continue current treatment plan Plan 1. Gather collateral information. 2. Continue medications as per court order. 3. Reassessment with results. 4. Abilify Maintena 400 mg IM received on August 31. 5. Discharge next Sunday Reason for continued inpatient stay Substantial Risk for: med/psych decompensation Time Spent With Patient Time: Total time managing care of this patient today ____ minutes.
--- NOTE | 2023-09-02 12:10 | HO.PSYCHPN ---
Subjective Subjective Date of Service: 09/02/23 Reason For Visit: Psychosis Interim History: Met with patient; discussed with team Laying in bed on approach, awake and alert. Earlier patient had asked for Tylenol for pain and told internal communications writer that it has been helping. Staff reports good behavioral control. Patient denies any other request to complaints Mental Status Exam Mental Status Exam Patient Appearance: Well Grooomed and Appropriate Patient Orientation: Person and Situation Level of Consciousness: Awake and Appropriate Patient Behavior: Guarded and Passive Mood Description: Withdrawn Affect Description: Constricted Patient Cognition Impaired: Yes Ability to Follow Directions: Good Speech Pattern: Clear Hallucinations: None Delusions: Not Present Thought Process: Distracted and Evasive Thought Content: positive for [place] and positive for Circumstantial Judgement: Poor Diagnostics Vital Signs (24Hr): Vital Signs - 24 hr 09/01/23 18:00 09/02/23 08:00 Temperature 98.4 F 97.8 F Pulse Rate 78 63 Respiratory Rate 18 18 Blood Pressure 153/65 H 124/61 Pulse Oximetry 97 95 Oxygen Delivery Method Room Air Room Air BMI result Body Mass Index 27.7 Labs 08/28/23 13:19 08/28/23 13:19 Medications Medications Current Medications Acetaminophen (Acetaminophen 325 Mg Tablet) 650 mg PO Q6H PRN PRN Reason: Headache/Pain Mild Scale (1-3) Last Admin: 08/28/23 21:10 Dose: 650 mg Al Hydroxide/Mg Hydroxide (Magnesium Hydrox/Alum Hydrox 30 Ml Oral.Susp) 30 ml PO Q6H PRN PRN Reason: Heartburn/Nausea Aripiprazole (Aripiprazole Er 400 Mg Suser.Syr) 400 mg IM Q30D [facility] Last Admin: 08/31/23 11:06 Dose: 400 mg Haloperidol (Haloperidol 5 Mg Tablet) 5 mg PO DAILY [facility] Last Admin: 09/02/23 08:12 Dose: 5 mg Hydroxyzine HCl (Hydroxyzine Hcl 25 Mg Tablet) 25 mg PO Q6H PRN PRN Reason: Anxiety Ibuprofen (Ibuprofen 400 Mg Tablet) 400 mg PO Q6H PRN PRN Reason: Pain, Moderate(Pain Scale 4-6) Ibuprofen (Ibuprofen 400 Mg Tablet) 400 mg PO Q6H [facility] Last Admin: 09/02/23 08:11 Dose: 400 mg Magnesium Hydroxide (Milk Of Magnesia 30 Ml Oral.Susp) 30 ml PO DAILY PRN PRN Reason: Constipation Propranolol HCl (Propranolol Hcl 10 Mg Tablet) 10 mg PO BID [facility]; Protocol Last Admin: 09/02/23 08:12 Dose: 10 mg Trazodone HCl (Trazodone Hcl 50 Mg Tablet) 50 mg PO BEDTIME MRX1 PRN PRN Reason: Insomnia Allergies Allergies Allergy/AdvReac Type Severity Reaction Status Date / Time aspirin Allergy Hives Verified 05/31/23 16:21 Assessment & Plan Assessment & Plan (1) Schizophrenia, paranoid, chronic with acute exacerbation: Status: Acute Code(s): F20.0 - Paranoid schizophrenia Plan The patient is an elderly female with a history of schizophrenia admitted for noncompliance of treatment in the community. The patient has a court ordered to follow treatment. At this moment he denies psychotic symptoms. 09/01 continue current treatment plan 09/02 continue current treatment plan Plan 1. Gather collateral information. 2. Continue medications as per court order. 3. Reassessment with results. 4. Abilify Maintena 400 mg IM received on August 31. 5. Discharge next Sunday Patient educated on: medical condition Informed Consent: understands Reason for continued inpatient stay Substantial Risk for: inability to function Time Spent With Patient Time: Total time managing care of this patient today ____ minutes.
[2023-09-02] MEDS: Acetaminophen 325 MG TABLET 650 MG PO (14:48)
[2023-09-02 18:00] VITALS: BP 130/60; PULSE 65; RESP 18; TEMP 36.3; O2SAT 96
[2023-09-03] MEDS: Acetaminophen 325 MG TABLET 650 MG PO (01:40)
--- NOTE | 2023-09-03 07:37 | PM.PSYDC ---
DS: Providers Provider Date of Service: 09/03/23 Date of admission: 08/28/23 17:37 Date of discharge: 09/03/23 Primary care physician: Montez Physician Attending physician on discharge: Rodger Schaffer DS: Diagnosis Discharge Diagnosis (1) Schizophrenia, paranoid, chronic with acute exacerbation: Status: Acute DS: Medications Discharge Medications Home Medications: Previous Rx's Medication Instructions Recorded aripiprazole 400 mg suspension, 400 mg IM Q30D #1 ea 07/20/23 extended rel.intramuscular syringe (Roseanneharlan Rodstephaniehilario) haloperidol 5 mg tablet 5 mg PO DAILY #30 tabs 07/20/23 propranolol 10 mg tablet 10 mg PO BID #60 tabs 07/20/23 Mental Status Exam Mental Status Exam Patient Appearance: Well Grooomed and Appropriate Patient Orientation: Person and Situation Level of Consciousness: Awake and Appropriate Patient Behavior: Guarded and Passive Mood Description: Withdrawn Affect Description: Constricted Patient Cognition Impaired: Yes Ability to Follow Directions: Good Speech Pattern: Clear Hallucinations: None Delusions: Paranoid Ideation Thought Process: Distracted and Slowed Thinking Thought Content: positive for [place] and positive for Circumstantial Judgement: Poor Data Data Completed and Pending Completed studies during hospitalization [Text1]: 08/28/23 08/28/23 13:19 14:59 WBC 8.8 RBC 4.73 Hgb 13.9 Hct 41.9 MCV 88.6 MCH 29.4 MCHC 33.2 RDW 14.0 Plt Count 220 MPV 11.7 Immature Gran % (Auto) 0.3 Neut % (Auto) 84.6 H Lymph % (Auto) 7.9 L [place] % (Auto) 6.4 Eos % (Auto) 0.3 Baso % (Auto) 0.5 Lymph # (Auto) 0.7 L [place] # (Auto) 0.6 Eos # (Auto) 0.0 Baso # (Auto) 0.0 Abs Immat Gran (auto) 0.03 Absolute Neuts (auto) 7.4 Absolute Nucleated RBC 0.000 Nucleated RBC % (auto) 0.0 Sodium 138 Potassium 3.9 Chloride 103 Carbon Dioxide 28 Anion Gap 11 L BUN 8 L Creatinine 0.83 Estim Creat Clear Calc 43.1 Estimated GFR > 60 Random Glucose 89 Calcium 9.1 Total Bilirubin 1.5 H AST 18 ALT 11 Alkaline Phosphatase 103 Total Protein 7.0 Albumin 4.1 Urine Color Yellow Urine Appearance Clear Urine pH 5.5 Ur Specific [place] <= 1.005 Urine Protein Negative Urine Glucose (UA) Negative Urine Ketones Negative Urine Blood Negative Urine Nitrite Negative Ur Leukocyte Esterase Trace H Urine RBC 0-2 Urine WBC 0-5 Ur Squamous Epith Cells 0-2 Urine Bacteria None Seen Hyaline Casts 3-5 Urine Opiates Screen Not Detected Urine Fentanyl Screen Not Detected Ur Barbiturates Screen Not Detected Ur Phencyclidine Scrn Not Detected Ur Amphetamines Screen Not Detected U Benzodiazepines Scrn Not Detected Urine Cocaine Screen Not Detected U Marijuana (THC) Screen Not Detected Ethyl Alcohol < 10 COVID-19 (MYRIAM) Negative COVID-19 Clin Com See Note DS: Summary Hospital Course Hospital Course: The patient is a 77-year-old female with a long history of schizophrenia with several ancillary services in the community. The patient was brought to the emergency room since she refused to have her Abilify long-acting injectable as per court order. She was assessed by crisis and transferring to this facility for psychiatric stabilization. Please see the HPI of the admission note for further details. On intake, the patient reported that she did not allowed to have her long-acting injectable because the court order was changed but apparently there were no changes or amendments on her court order. While she was in the unit, she was pleasant, cooperative, participating in groups, delusional at baseline but no major changes in her mental illness. Also no safety concerns. The patient signed a conditional voluntary later on, she signed a 3 day notice. We contact her family independence case manager years and other ancillary staff in the community and we decided to give her the injection as per court order and discharge her with her services reinstated. We review the pharmacy records and apparently her last injection was at least 6 weeks ago so we gave her her medication as per court order with no side effects. The patient was at baseline no safety concerns and discharge planning was discussed with ring stated of her ancillary services in the community. Time spent discussing smoking cessation with patient: 3 to 10 minutes Status at Discharge Cognitive/behavioral status at discharge: At baseline Functional status at discharge: independent ambulation Overall status at discharge: patient is back to baseline Time Spent with Patient Time attestation: Total time managing care of this patient today __30__ minutes. Time spent: Less than 30 minutes Discharge Plan Discharge Anticipated Discharge Date/Time: 09/03/23 11:00 Patient Disposition: Home Health Service Discharge Diagnosis: Schizophrenia Referrals: Maryjane LEWIS Psychiatric Prescriber [Other] - 09/12/23 1:00 pm (Appointment: 09/12/2023 @ 1pm - 1:40pm ) Physician,None [Primary Care Provider] - 1 Week Discharge Medications: Continued haloperidol 5 mg Tablet 5 mg PO DAILY Qty: 30 0RF propranolol 10 mg Tablet 10 mg PO BID Qty: 60 0RF Protocol: Hold for SBP/HR < HOLD for SBP < : 90 HOLD for HR < : 60 Abilify Maintena 400 mg Suspension,Extended Rel Syring 400 mg IM Q30D Qty: 1 0RF Rx Instructions: Last injection August 31, next dose in 4 weeks Discharge Orders: Discharge Order (Routine); Ordered 09/03/23 Ordered By: Rodger Schaffer Diet: Advance to usual diet Activity on Discharge: As tolerated Stand Alone Forms: Patient Portal Discharge page Care Plan Goals: Care plan goals achieved in this admission Health Concerns: Continue treatment by primary care physician in the community. Plan of Treatment: Continue with psychiatric treatment as per court order with providers in the community. Assessment: Elderly female with a long history of schizophrenia with several ancillary services in the community and court ordered treatment for antipsychotics. The patient was brought to the emergency room since she refused to have her injection and admitted for compliance with the medication. At this moment she is safe to go back to the community no acute new symptoms, chronically delusional.
[2023-09-03 08:00] VITALS: BP 141/63; PULSE 60; RESP 16; TEMP 36.8; O2SAT 99
[2023-09-03] MEDS: Propranolol HCL 10 MG TABLET PO (08:23)
[2023-09-03] MEDS: HaloperidoL 5 MG TABLET PO (09:00)
== END 2023-09-03 12:03 | disposition home health service (06) | DRG 885 ==
LOC: HO.ED 14:50 → HO.PGERI 17:40
PROVIDERS: Admitting Provider Psychiatry & Neurology Psychiatry; Emergency Provider Emergency Medicine; Visit Provider Psychiatry & Neurology Psychiatry
DX: F20.0 Paranoid schizophrenia (principal); Z20.822 Contact with and (suspected) exposure to COVID-19; Z91.148 Patient's other noncompliance with medication regimen for other reason; Z79.899 Other long term (current) drug therapy
CPT/HCPCS: 80053; 80307; 81001; 85025; 87635; 99285; J0401

== ENCOUNTER → 2023-08-28 17:37 | Outpatient (BNV) | payer MEDICARE, SELFPAY | PROVIDERS: Admitting Provider Psychiatry & Neurology Psychiatry; Emergency Provider Emergency Medicine; Visit Provider Psychiatry & Neurology Psychiatry | DX: F20.0 Paranoid schizophrenia (principal) | CPT/HCPCS: 90792; 99231; 99232; 99238 ==

== ENCOUNTER 2023-09-26 12:28 | Emergency (ER) | payer MEDICARE, SELFPAY ==
[2023-09-26 12:39] VITALS: BP 158/65; BP 180/91; PULSE 90; PULSE 97; RESP 16; TEMP 36.3; O2SAT 94; O2SAT 99; BMI 20.8
--- NOTE | 2023-09-26 13:03 | ED_ITS ---
HPI - General Adult General Chief complaint: Psychiatric Symptoms Stated complaint: SEC 12 BY [facility]N,NONMED COMP,FROM HOME, Time Seen by Provider: 09/26/23 14:44 Source: patient Mode of arrival: ambulatory Limitations: no limitations History of Present Illness HPI narrative: 77-year-old female presents for acute on chronic schizophrenia secondary to nonadherence to Abilify. She denies chest pain, palpitations, and shortness of breath. No nausea, vomiting, diarrhea, or constipation. No headaches or vision changes. She denies pain. When asked about suicidal and homicidal ideation, she replied with Oh, get real several times. When asked about auditory and visual hallucinations, she responded with Oh get real, just get lost. Related Data Previous Rx's Medication Instructions Recorded aripiprazole 400 mg suspension, 400 mg IM Q30D #1 ea 09/03/23 extended rel.intramuscular syringe (Abilify Maintena) haloperidol 5 mg tablet 5 mg PO DAILY #30 tabs 09/03/23 propranolol 10 mg tablet 10 mg PO BID #60 tabs 09/03/23 Allergies Allergy/AdvReac Type Severity Reaction Status Date / Time aspirin Allergy Hives Verified 05/31/23 16:21 Review of Systems 2 Review of Systems: refusing to answer Yes Other [facility] Past Medical History Attestation statement: The following information was validated with the patient. Source: old records reviewed and nursing notes reviewed Social History Social History Household Members: None Housing: House Do you presently have visiting nurse or other home services: Yes (Gene Almeida) Patient Tobacco Use Status: Never used Tobacco Advance Directives: No Advance Directives Information Provided: Yes service: No Sexual orientation: Straight/Heterosexual Physical Exam ED Vital Signs: Vital Signs - 24 hr 09/26/23 12:39 Temperature 97.4 F Pulse Rate 90 Respiratory Rate 16 Blood Pressure 158/65 H Pulse Oximetry 94 Oxygen Delivery Method Room Air BMI result Body Mass Index 20.8 vss Appearance: Alert.? Oriented X3.? No acute distress.? Head: Normocephalic, atraumatic, no step-offs or deformities Eyes: Pupils equal, round and reactive to light.? CVS: Normal heart rate and rhythm.? Pulses normal.? Respiratory: No respiratory distress.? Breath sounds normal.? Abdomen: Soft and nontender.? Skin: Skin warm and dry.? Normal skin color.? Normal skin turgor.? Extremities: No lower extremity edema.? No calf ttp. 5/5 strength to bilateral upper and lower extremities Back: No midline tenderness, no C-spine tenderness, full range of motion, no CVA tenderness bilaterally Neuro: Oriented X 3.? No motor deficit.? No sensory deficit. CN 2-12 intact Course Reevaluation(s) Reevaluation #1: CBC unremarkable. Chemistry no acute findings requiring intervention. UA without infection. Urine tox unremarkable. Salicylates acetaminophen negative. Valproic acid level patient to be continued on home meds. At this time to be placed in observation to allow more time to be evaluated by care team. Time: 15:45 Medical Decision Making Medical Decision Making [facility] Narrative: 77-year-old female presents for nonadherence to Abilify. She has no medical complaints at this time. Patient would not answer psychiatric ROS. Physical exam unremarkable History and physical exam concerning for acute on chronic schizophrenia secondary to medication nonadherence vs bipolar vs psychosis vs depression vs anxiety . Unlikely metabolic derangements, hepatic encephalopathy, stroke Plan: Labs, UA; Have patient evaluated by care team Differential Diagnosis Differential Diagnoses: The differential diagnosis associated with the presentation includes History and physical exam concerning for acute on chronic schizophrenia secondary to medication nonadherence vs bipolar vs depression vs anxiety . Unlikely metabolic derangements, hepatic encephalopathy, stroke Admission/Observation Consideration of admission/observation: Escalation of care including admission/observation considered possible psych Lab Data [facility] Lab Attestation statement: I reviewed the patient's lab results. 09/26/23 13:46 09/26/23 13:46 Labs: Lab Results 09/26/23 09/26/23 Range/Units 13:46 14:00 WBC 8.7 (4.8-10.8) X10*3/uL RBC 4.78 (4.20-5.50) X10*6/uL Hgb 14.0 (12.0-16.0) g/dl Hct 42.9 (37.0-47.0) % MCV 89.7 (80.0-98.0) fL MCH 29.3 (27.0-33.0) pg MCHC 32.6 (31.0-35.0) g/dl RDW 13.6 (11.0-16.0) % Plt Count 228 (160-400) X10*3/uL MPV 11.6 (9.4-12.3) fL Immature Gran % (Auto) 0.3 (0.0-0.4) % Neut % (Auto) 84.3 H (45-73) % Lymph % (Auto) 8.4 L (20-40) % [place] % (Auto) 5.9 (2-11) % Eos % (Auto) 0.6 (0-4) % Baso % (Auto) 0.5 (0-2) % Lymph # (Auto) 0.7 L (1.2-4.9) X10*3/uL [place] # (Auto) 0.5 (0.1-1.2) X10*3/uL Eos # (Auto) 0.1 (0.0-0.4) X10*3/uL Baso # (Auto) 0.0 (0.0-0.2) X10*3/uL Abs Immat Gran (auto) 0.03 (0.00-0.03) X10*3/uL Absolute Neuts (auto) 7.3 (2.0-8.3) x10*3/uL Absolute Nucleated RBC 0.000 (0.0-0.012) X10*3/uL Nucleated RBC % (auto) 0.0 (0.0-0.2) /100WBC Sodium 139 (135-145) mmol/L Potassium 4.1 (3.3-5.1) mmol/L Chloride 105 (96-108) mmol/L Carbon Dioxide 26 (22-29) mmol/L Anion Gap 12 (12-20) BUN 11 (9-16) mg/dL Creatinine 0.79 (0.5-1.4) mg/dL Estim Creat Clear Calc 45.0 Estimated GFR > 60 Random Glucose 112 (60-115) mg/dL Calcium 9.7 D (8.4-10.2) mg/dL Total Bilirubin 1.2 H (0.0-1.0) mg/dL AST 24 (5-31) U/L ALT 14 (0-31) U/L Alkaline Phosphatase 107 (39-117) U/L Total Protein 7.4 (6.5-8.0) g/dL Albumin 4.3 (3.5-5.0) g/dL Urine Color Yellow Urine Appearance Clear Urine pH 5.5 (5.0-9.0) Ur Specific [place] <= 1.005 (1.005-1.025) Urine Protein Negative (Neg-Trace) mg/dL Urine Glucose (UA) Negative (Negative) mg/dL Urine Ketones Negative (Negative) mg/dL Urine Blood Negative (Negative) Urine Nitrite Negative (Negative) Ur Leukocyte Esterase Negative (Negative) Urine RBC 0-2 (0-2) /HPF Urine WBC 0-5 (0-5) /HPF Ur Squamous Epith Cells 0-2 (0-2) /HPF Urine Bacteria None Seen (None Seen) Hyaline Casts 0-2 (0-2) /LPF Salicylates < 5.0 L (15-30) mg/dL Urine Opiates Screen Not Detected (Not Detect) Urine Fentanyl Screen Not Detected (Not Detect) Acetaminophen < 3 (<30) mcg/mL Ur Barbiturates Screen Not Detected (Not Detect) Valproic Acid < 12.5 L (50.0-100.0) mcg/mL Ur Phencyclidine Scrn Not Detected (Not Detect) Ur Amphetamines Screen Not Detected (Not Detect) U Benzodiazepines Scrn Not Detected (Not Detect) Urine Cocaine Screen Not Detected (Not Detect) U Marijuana (THC) Screen Not Detected (Not Detect) Ethyl Alcohol < 10 mg/dL Chronic Conditions Patient?s care impacted by: Other (bipolar ) Discharge Plan Discharge Clinical Impression: Schizophrenia, paranoid, chronic with acute exacerbation Patient Disposition: Still a Patient Prescriptions: No Action haloperidol 5 mg Tablet 5 mg PO DAILY Qty: 30 0RF propranolol 10 mg Tablet 10 mg PO BID Qty: 60 0RF Protocol: Hold for SBP/HR < HOLD for SBP < : 90 HOLD for HR < : 60 Abilify Maintena 400 mg Suspension,Extended Rel Syring 400 mg IM Q30D Qty: 1 0RF Rx Instructions: Last injection August 31, next dose in 4 weeks
[2023-09-26 13:52] LABS: MANUAL DIFF FLAG NO
[2023-09-26 13:53] LABS: Basophils Percent Auto 0.5 % (0-2); Eosinophils Absolute Auto 0.1 X10*3/uL (0.0-0.4); Eosinophils Percent Auto 0.6 % (0-4); Hematocrit 42.9 % (37.0-47.0); Imm Gran Abs Auto 0.03 X10*3/uL (0.00-0.03); Imm Gran Pct Auto 0.3 % (0.0-0.4); Lymphocytes Absolute Auto 0.7 X10*3/uL (1.2-4.9); Lymphocytes Percent Auto 8.4 % (20-40); Mean Corpuscular HGB Conc 32.6 g/dl (31.0-35.0); Mean Corpuscular Hemoglobin 29.3 pg (27.0-33.0); Mean Corpuscular Volume 89.7 fL (80.0-98.0); Mean Platelet Volume 11.6 fL (9.4-12.3); Monocytes Absolute Auto 0.5 X10*3/uL (0.1-1.2); Monocytes Percent Auto 5.9 % (2-11); Neutrophils Absolute Auto 7.3 x10*3/uL (2.0-8.3); Neutrophils Percent Auto 84.3 % (45-73); Platelet Count 228 X10*3/uL (160-400); Red Blood Count 4.78 X10*6/uL (4.20-5.50); Red Cell Distribution Width 13.6 % (11.0-16.0); White Blood Count 8.7 X10*3/uL (4.8-10.8)
[2023-09-26 14:05] LABS: Valproate < 12.5 mcg/mL (50.0-100.0)
[2023-09-26 14:08] LABS: Alanine Aminotransferase 14 U/L (0-31); Albumin Level 4.3 g/dL (3.5-5.0); Alkaline Phosphatase 107 U/L (39-117); Anion Gap 12 (12-20); Aspartate Amino Transferase 24 U/L (5-31); Bilirubin Total 1.2 mg/dL (0.0-1.0); Blood Urea Nitrogen 11 mg/dL (9-16); Calcium 9.7 mg/dL (8.4-10.2); Carbon Dioxide 26 mmol/L (22-29); Chloride 105 mmol/L (96-108); Estimated Glomerular Filt Rate > 60; Ethanol < 10 mg/dL; Glucose Random 112 mg/dL (60-115); Potassium 4.1 mmol/L (3.3-5.1); Sodium 139 mmol/L (135-145); Total Protein 7.4 g/dL (6.5-8.0)
[2023-09-26 14:12] LABS: Appearance Urine Clear; Color Urine Yellow; Glucose Urine UA Negative (Negative); Leukocyte Esterase Urine Negative (Negative); Nitrite Urine Negative (Negative); PH 5.5 (5.0-9.0); Specific Gravity - Urine <= 1.005 (1.005-1.025); Urine Blood Negative (Negative); Urine Ketones Negative (Negative); Urine Protein Negative (Neg-Trace)
[2023-09-26 14:15] LABS: Amphetamine Screen Urine Not Detected (Not Detect); Bacteria Urine None Seen (None Seen); Barbiturates, Urine Not Detected (Not Detect); Benzodiazepines Screen Urine Not Detected (Not Detect); Cannabinoid Screen Urine Not Detected (Not Detect); Cocaine Screen Urine Not Detected (Not Detect); Fentanyl, urine Not Detected (Not Detect); Hyaline Casts Urine 0-2 /LPF (0-2); Opiate Screen Urine Not Detected (Not Detect); Phencyclidine Screen Urine Not Detected (Not Detect); RBC Urine 0-2 /HPF (0-2); Squamous Epithelial Cell Urine 0-2 /HPF (0-2); WBC Urine 0-5 /HPF (0-5)
[2023-09-26 14:18] LABS: Acetaminophen LAB < 3 mcg/mL (<30); Salicylate < 5.0 mg/dL (15-30)
--- NOTE | 2023-09-26 14:41 | MHC.CARE ---
[facility] powersaw supervisor Harleen Tripp ([phone]) called, she reported that patient has refused all pill form medications since discharging from her in August. Is sending medication list and copy of [place] Order.
--- NOTE | 2023-09-26 16:31 | P.CNPS_ITS ---
History of Present Illness Date of Service: 09/26/2023 Chief Complaint: SEC 12 BY BHN,NONMED COMP,FROM HOME, Reason for Consult: paranoia Discussed with referring provider: Yes Sources of Information: patient interviewed, chart reviewed and crisis/core team assessment reviewed HPI Narrative: Mrs. Kohli is a 78 year-old woman with hx of schizophrenia. She was brought via EMS after ACCS team called reporting increase paranoia, not engaging with ACCS team and refusing to attend appointment or allow team to assist with food and other needs. Pt is well known by this song writer through previous admission with similar presentation. In the ED, pt presents as pleasant. She tells this song writer she is due for MARTINO, abilify, which is due in few days. She reports she does not like [facility] and mostly states due to her not needing them. She continues to present with no insight into mental illness and need for ongoing treatment. 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 She reports some suspiciousness towards neighbors but overall calmer. No SI/HI. Collateral information was gathered from ACSS coordination, who denies pt exhibiting physical aggression towards self or others, but declining to engage with team. We had long discussing that although pt has not insight into mental health and need for treatment, she is more stable with regular MARTINO- which she has been receiving for the past 4 months. No imminent harm to self or others at this point to required involuntary psychiatric admission. But will give MARTINO abilify maintaina 400mg IM here in ED. Past Psychiatric History: Inpatient: S1 07/02/2023 [facility]; 11/04/2020 [facility]; 07/19/2017 & 04/2017 [facility]; [facility]; 2007 [facility]. Pt at [facility] from 2010- 2012. OP: Maryjane Worley [facility]- Don Engel ([phone]); Issac Martin [phone]/ [phone] Past medication trials: haldol, geodone, abilify maintana. depakote. [facility] Family History: Denies Social History: The patient is chronically mentally ill she lives in the community with ancillary services. Trauma History: Denies Diagnostics Vital Signs (24Hr): Vital Signs - 24 hr 09/26/23 12:39 Temperature 97.4 F Pulse Rate 90 Respiratory Rate 16 Blood Pressure 158/65 H Pulse Oximetry 94 Oxygen Delivery Method Room Air BMI result Body Mass Index 20.8 Labs 09/26/23 13:46 09/26/23 13:46 Labs: Laboratory Results - last 48 hr 09/26/23 09/26/23 13:46 14:00 WBC 8.7 RBC 4.78 Hgb 14.0 Hct 42.9 MCV 89.7 MCH 29.3 MCHC 32.6 RDW 13.6 Plt Count 228 MPV 11.6 Immature Gran % (Auto) 0.3 Neut % (Auto) 84.3 H Lymph % (Auto) 8.4 L [place] % (Auto) 5.9 Eos % (Auto) 0.6 Baso % (Auto) 0.5 Lymph # (Auto) 0.7 L [place] # (Auto) 0.5 Eos # (Auto) 0.1 Baso # (Auto) 0.0 Abs Immat Gran (auto) 0.03 Absolute Neuts (auto) 7.3 Absolute Nucleated RBC 0.000 Nucleated RBC % (auto) 0.0 Sodium 139 Potassium 4.1 Chloride 105 Carbon Dioxide 26 Anion Gap 12 BUN 11 Creatinine 0.79 Estim Creat Clear Calc 45.0 Estimated GFR > 60 Random Glucose 112 Calcium 9.7 D Total Bilirubin 1.2 H AST 24 ALT 14 Alkaline Phosphatase 107 Total Protein 7.4 Albumin 4.3 Urine Color Yellow Urine Appearance Clear Urine pH 5.5 Ur Specific [place] <= 1.005 Urine Protein Negative Urine Glucose (UA) Negative Urine Ketones Negative Urine Blood Negative Urine Nitrite Negative Ur Leukocyte Esterase Negative Urine RBC 0-2 Urine WBC 0-5 Ur Squamous Epith Cells 0-2 Urine Bacteria None Seen Hyaline Casts 0-2 Salicylates < 5.0 L Urine Opiates Screen Not Detected Urine Fentanyl Screen Not Detected Acetaminophen < 3 Ur Barbiturates Screen Not Detected Valproic Acid < 12.5 L Ur Phencyclidine Scrn Not Detected Ur Amphetamines Screen Not Detected U Benzodiazepines Scrn Not Detected Urine Cocaine Screen Not Detected U Marijuana (THC) Screen Not Detected Ethyl Alcohol < 10 Mental Status Exam Mental Status Exam Patient Appearance: Well Grooomed and Appropriate Patient Orientation: Person and Situation Level of Consciousness: Awake and Appropriate Patient Behavior: Guarded and Passive Mood Description: Withdrawn Affect Description: Constricted Patient Cognition Impaired: Yes Ability to Follow Directions: Good Speech Pattern: Clear Hallucinations: None Delusions: Paranoid Ideation Thought Process: Distracted and Slowed Thinking Thought Content: positive for [place] and positive for Circumstantial Judgement: Poor Medications Allergies Allergies Allergy/AdvReac Type Severity Reaction Status Date / Time aspirin Allergy Hives Verified 05/31/23 16:21 Assessment & Plan Assessment & Plan (1) Schizophrenia, paranoid, chronic with acute exacerbation: Status: Acute Code(s): F20.0 - Paranoid schizophrenia Plan Mrs. Kohli is a 78 year-old woman with hx of schizophrenia. Pt was brought via EMS after her ACCS team called reporting increase paranoia and not engaging with treatment team. In the ED, pt does report paranoia towards neighrbors. No insight into mental illness and need for treatment. However, no imminent harm to self or others to required involuntary psychiatric treatment. Pt was given Abilify Maintaince per Osman's 400mg IM [id number]. PLAN 1. give abilify Maintaince 400mg IM 2. no inpt level of care at this point- return home with services. Total time managing care of this patient today ____ minutes.
--- NOTE | 2023-09-26 16:38 | MHC.CARE ---
CARE Team confirms with N that pt was assessed in the community by [facility] with dispo for IPOC due to pt not taking her medications and being on a landers order. Pt is well known to [facility]. Tiana Fischer NP communicated to CARE Team that she briefly met with this pt and pt appears to be at baseline. Tiana reportedly reached out to pt's ACCS team and the plan is currently that pt will be seen by psychiatry tomorrow, likely receive her IM meds per the landers order and be discharged to the community.
[2023-09-26 17:17] VITALS: RESP 16
--- NOTE | 2023-09-26 17:52 | PC.NURSE ---
PT KIRSTEN after BHN attempted a home visit and client would not let them inside. Client sent to hospital for non-compliance with medication and decompensation in community. PT peter in POD. Was able to meter changes records clerk without issue. Allowed her belongings to be searched and has labs pending. No behavioral concerns and PT denies SI/HI/AVH. Client gait steady.
[2023-09-26] MEDS: ARIPiprazole ER 400 MG SUSER.SYR IM (18:09)
--- NOTE | 2023-09-26 18:12 | PC.NURSE ---
400MG Abilify Maintaina administered to L deltoid. Lot [id number] EXP 09/2025 [facility] [id number]
--- NOTE | 2023-09-26 19:05 | PC.NURSE ---
patient appears at rest ambulates unit ad shiva seems pleasant and cooperative. patient appears in no distress.
[2023-09-26 20:36] VITALS: BP 153/65; PULSE 70; RESP 18; TEMP 36.3; O2SAT 98
[2023-09-27 01:17] VITALS: BP 141/52; PULSE 71; RESP 15; TEMP 36.3; O2SAT 98
[2023-09-27] MEDS: Acetaminophen 325 MG TABLET 650 MG PO ×2 (03:10→12:34)
--- NOTE | 2023-09-27 08:45 | MHC.CARE ---
CARE Team received a call from Pts ACCS worker (Issac Tejeda [phone] ext [phone]) regarding plan of CARE. CARE Team will update provider after rounds.
--- NOTE | 2023-09-27 10:24 | MHC.CARE ---
CARE Team with Tiana Fischer NP plan for Pt to be discharged home to current providers. CARE Team notifed Pts ACCS worker and they will arrange coal picker.
[2023-09-27 11:42] VITALS: RESP 16
--- NOTE | 2023-09-27 12:48 | PC.NURSE ---
Elo was OOB this shift and pleasant when engaged. Elo req/rec Tylenol 650mg for headache. BHN called and reported they will be here to pick her up at 1300. Elo denies SI/HI/AVH. No behaviroal concerns.
== END 2023-09-27 13:51 | disposition home or self-care (01) ==
PROVIDERS: Emergency Provider Student in an Organized Health Care Education/Training Program
DX: F20.0 Paranoid schizophrenia (principal); Z91.148 Patient's other noncompliance with medication regimen for other reason
CPT/HCPCS: 36415; 80053; 80143; 80164; 80179; 80307; 81001; 85025; 96372; 99284; J0401

== ENCOUNTER → 2023-09-26 13:20 | Outpatient (BNV) | payer MEDICARE, SELFPAY | PROVIDERS: Emergency Provider Student in an Organized Health Care Education/Training Program; Visit Provider Social Worker | DX: F20.0 Paranoid schizophrenia (principal) | CPT/HCPCS: 99285 ==